=== PATIENT | male | born 1955 | race Caucasian/White ===

== ENCOUNTER 2016-08-22 14:37 | Inpatient (IN) | payer BC ==
[2016-08-22] MEDS ORDERED: DILTIAZEM 125 MG in SODIUM CHLORIDE 0.9% 100 ML IV ONE (14:53)
--- NOTE | 2016-08-22 14:56 | ED ---
General Adult HPI - General Chief complaint: Arrhythmia/Palpitations Stated complaint: Dr Sent Time Seen by Provider: 08/22/16 14:40 Source: patient, RN notes reviewed Mode of arrival: ambulatory Limitations: no limitations - History of Present Illness Initial comments: Patient is a pleasant 61-year-old male presenting to the emergency department with reported arrhythmia. Patient is symptom-free. No chest pain. No dyspnea. No palpitations. Patient states he had a physical with his occupational therapist who noticed atrial fibrillation. EKG was done with a rate of 97. No history of atrial fibrillation or previous rhythm problem. No cardiac history. Patient does admit to drinking a whole pot of coffee today. Patient does normally drink a lot of coffee. - Related Data Home Medications Medication Instructions Recorded Confirmed Aspirin EC [Ecotrin Low Dose] 81 mg PO DAILY 08/22/16 08/22/16 Atorvastatin [Lipitor] 40 mg PO DAILY 08/22/16 08/22/16 Bisoprolol-Hctz 5-6.25 mg [Ziac 1 tab PO DAILY 08/22/16 08/22/16 5-6.25] Allergies Allergy/AdvReac Type Severity Reaction Status Date / Time No Known Allergies Allergy Verified 08/22/16 15:13 Review of Systems ROS Statement: Those systems with pertinent positive or pertinent negative responses have been documented in the HPI. ROS Other: All systems not noted in ROS Statement are negative. Constitutional: Denies: fever Eyes: Denies: eye pain ENT: Denies: ear pain Respiratory: Denies: cough, dyspnea Cardiovascular: Denies: chest pain, palpitations Endocrine: Denies: fatigue Gastrointestinal: Denies: abdominal pain Genitourinary: Denies: dysuria Musculoskeletal: Denies: back pain Neurological: Denies: headache Past Medical History Past Medical History: Hyperlipidemia, Hypertension History of Any Multi-Drug Resistant Organisms: None Reported Additional Past Surgical History / Comment(s): cataract Past Psychological History: No Psychological Hx Reported Smoking Status: Never smoker Past Alcohol Use History: Occasional Past Drug Use History: None Reported General Exam Limitations: no limitations General appearance: alert, in no apparent distress Head exam: Present: atraumatic Eye exam: Present: normal appearance, PERRL ENT exam: Present: normal oropharynx Neck exam: Present: normal inspection Respiratory exam: Present: normal lung sounds bilaterally Cardiovascular Exam: Present: tachycardia, irregular rhythm GI/Abdominal exam: Present: soft. Absent: tenderness Extremities exam: Present: normal inspection. Absent: pedal edema, calf tenderness Neurological exam: Present: alert Psychiatric exam: Present: normal affect, normal mood Skin exam: Absent: rash Course Vital Signs 08/22/16 08/22/16 08/22/16 14:42 14:45 14:52 Temperature 97.1 F L Pulse Rate 108 H 105 H Pulse Rate [ 119 H Language Pathologist ] Respiratory 18 18 Rate Blood Pressure 126/78 120/86 O2 Sat by Pulse 98 97 Oximetry 08/22/16 08/22/16 14:55 15:31 Temperature Pulse Rate 126 H 93 Pulse Rate [ Language Pathologist ] Respiratory 20 18 Rate Blood Pressure 120/86 114/69 O2 Sat by Pulse 98 93 L Oximetry - Reevaluation(s) Reevaluation #1: 08/22/16 14:55 Patient is advised to discontinue or at least decrease caffeine intake EKG Findings - EKG Comments: EKG Findings:: A. fib with RVR, rate 1:15. QRS 96. QT 352. QTC 486. Normal axis. Incomplete right bundle-branch block. No acute ST change. Medical Decision Making - Medical Decision Making Patient reevaluated. Heart rate remains between 106 and 122. Case discussed in detail with Dr. Barrett, who will admit his patient. Patient updated. IV heparin started. Cardizem drip will be increased. Admission orders placed. Cardiology consult will be placed. - Lab Data Result diagrams: 08/22/16 14:52 08/22/16 14:52 Lab Results 08/22/16 08/22/16 08/22/16 Range/Units 14:52 14:52 14:52 WBC 8.9 (3.8-10.6) k/uL RBC 4.81 (4.30-5.90) m/uL Hgb 14.6 (13.0-17.5) gm/dL Hct 42.0 (39.0-53.0) % MCV 87.3 (80.0-100.0) fL MCH 30.4 (25.0-35.0) pg MCHC 34.8 (31.0-37.0) g/dL RDW 12.8 (11.5-15.5) % Plt Count 207 (150-450) k/uL Neutrophils % 58 % Lymphocytes % 32 % Monocytes % 5 % Eosinophils % 2 % Basophils % 1 % Neutrophils # 5.2 (1.3-7.7) k/uL Lymphocytes # 2.8 (1.0-4.8) k/uL Monocytes # 0.4 (0-1.0) k/uL Eosinophils # 0.2 (0-0.7) k/uL Basophils # 0.1 (0-0.2) k/uL PT (9.0-12.0) sec INR (<1.1) APTT (22.0-30.0) sec Sodium 139 (137-145) mmol/L Potassium 4.7 (3.5-5.1) mmol/L Chloride 105 (98-107) mmol/L Carbon Dioxide 22 (22-30) mmol/L Anion Gap 12 mmol/L BUN 17 (9-20) mg/dL Creatinine 1.20 (0.66-1.25) mg/dL Est GFR (MDRD) Af Amer >60 (>60 ml/min/1.73 sqM) Est GFR (MDRD) Non-Af >60 (>60 ml/min/1.73 sqM) Glucose 106 H (74-99) mg/dL Calcium 9.4 (8.4-10.2) mg/dL Magnesium 2.0 (1.6-2.3) mg/dL Total Bilirubin 1.0 (0.2-1.3) mg/dL AST 28 (17-59) U/L ALT 34 (21-72) U/L Alkaline Phosphatase 60 (38-126) U/L Total Creatine Kinase 128 (55-170) U/L CK-MB (CK-2) 1.0 (0.0-2.4) ng/mL CK-MB (CK-2) Rel Index 0.8 Troponin I <0.012 (0.000-0.034) ng/mL Total Protein 7.0 (6.3-8.2) g/dL Albumin 4.2 (3.5-5.0) g/dL TSH 1.180 (0.465-4.680) mIU/L Free T4 1.24 (0.78-2.19) ng/dL Free T3 pg/mL 4.4 (2.8-5.3) pg/ml 08/22/16 Range/Units 14:52 WBC (3.8-10.6) k/uL RBC (4.30-5.90) m/uL Hgb (13.0-17.5) gm/dL Hct (39.0-53.0) % MCV (80.0-100.0) fL MCH (25.0-35.0) pg MCHC (31.0-37.0) g/dL RDW (11.5-15.5) % Plt Count (150-450) k/uL Neutrophils % % Lymphocytes % % Monocytes % % Eosinophils % % Basophils % % Neutrophils # (1.3-7.7) k/uL Lymphocytes # (1.0-4.8) k/uL Monocytes # (0-1.0) k/uL Eosinophils # (0-0.7) k/uL Basophils # (0-0.2) k/uL PT 11.2 (9.0-12.0) sec INR 1.1 (<1.1) APTT 25.5 (22.0-30.0) sec Sodium (137-145) mmol/L Potassium (3.5-5.1) mmol/L Chloride (98-107) mmol/L Carbon Dioxide (22-30) mmol/L Anion Gap mmol/L BUN (9-20) mg/dL Creatinine (0.66-1.25) mg/dL Est GFR (MDRD) Af Amer (>60 ml/min/1.73 sqM) Est GFR (MDRD) Non-Af (>60 ml/min/1.73 sqM) Glucose (74-99) mg/dL Calcium (8.4-10.2) mg/dL Magnesium (1.6-2.3) mg/dL Total Bilirubin (0.2-1.3) mg/dL AST (17-59) U/L ALT (21-72) U/L Alkaline Phosphatase (38-126) U/L Total Creatine Kinase (55-170) U/L CK-MB (CK-2) (0.0-2.4) ng/mL CK-MB (CK-2) Rel Index Troponin I (0.000-0.034) ng/mL Total Protein (6.3-8.2) g/dL Albumin (3.5-5.0) g/dL TSH (0.465-4.680) mIU/L Free T4 (0.78-2.19) ng/dL Free T3 pg/mL (2.8-5.3) pg/ml - Radiology Data Radiology results: image reviewed (Chest x-ray shows no acute process.) Critical Care Time Critical Care Time: Yes Total Critical Care Time: 32 Disposition Clinical Impression: Atrial fibrillation with RVR Disposition: ADMITTED IP TO THIS [facility] Time of Disposition: 16:26
[2016-08-22 15:04] LABS: Basophils # (A) 0.1 k/uL (0-0.2); Basophils % (A) 1 %; CH 30.4; CHCM 34.9; Eosinophils # (A) 0.2 k/uL (0-0.7); Eosinophils % (A) 2 %; HGB 14.6 gm/dL (13.0-17.5); Luc # (Auto) 0.22; Luc % (Auto) 3; Lymphocytes # (A) 2.8 k/uL (1.0-4.8); Lymphocytes % (A) 32 %; MCH 30.4 pg (25.0-35.0); MCHC 34.8 g/dL (31.0-37.0); MCV 87.3 fL (80.0-100.0); Mean Platelet Volume 6.7; Monocytes # (A) 0.4 k/uL (0-1.0); Monocytes % (A) 5 %; Neutrophils # (A) 5.2 k/uL (1.3-7.7); Neutrophils % (A) 58 %; RBC 4.81 m/uL (4.30-5.90); RDW 12.8 % (11.5-15.5); WBC 8.9 k/uL (3.8-10.6); WBC (Perox) 8.74
[2016-08-22 15:11] LABS: INR 1.1 (<1.1); Partial Thromboplastin Time 25.5 sec (22.0-30.0); Prothrombin Time 11.2 sec (9.0-12.0)
[2016-08-22 15:13] LABS: ALT 34 U/L (21-72); AST 28 U/L (17-59); Alkaline Phosphatase 60 U/L (38-126); Anion Gap 12 mmol/L; Blood Urea Nitrogen 17 mg/dL (9-20); Calcium 9.4 mg/dL (8.4-10.2); Carbon Dioxide 22 mmol/L (22-30); Chloride 105 mmol/L (98-107); Glucose 106 mg/dL (74-99); Non-African American GFR(MDRD) >60 (>60 ml/min/1.73 sqM); Potassium 4.7 mmol/L (3.5-5.1); Sodium 139 mmol/L (137-145)
--- NOTE | 2016-08-22 15:15 | XR ---
EXAMINATION TYPE: XR chest 1V portable DATE OF EXAM: 08/22/2016 3:05 PM COMPARISON: NONE HISTORY: Abnormal EKG and dysrhythmia. TECHNIQUE: Single AP portable frontal upright view of the chest is obtained. FINDINGS: There is no focal air space opacity, pleural effusion, or pneumothorax seen. The cardiac silhouette size is within normal limits. The osseous structures are intact. IMPRESSION: No acute process.
[2016-08-22 15:25] LABS: Creatine Kinase 128 U/L (55-170)
[2016-08-22 15:37] LABS: Troponin I <0.012 ng/mL (0.000-0.034)
[2016-08-22] MEDS ORDERED: HEPARIN SODIUM,PORCINE 5,000 UNIT/ML 1 ML VIAL IV ONE (16:27)
[2016-08-22] MEDS ORDERED: HEPARIN SODIUM,PORCINE 5,000 UNIT/ML 1 ML VIAL IV PRN (16:27)
[2016-08-22] MEDS ORDERED: ASPIRIN 81 MG CHEW PO STA (16:27)
[2016-08-22] MEDS ORDERED: HEPARIN SODIUM,PORCINE/D5W PMX 25,000 UNIT in DEXTROSE/WATER 1 500ML.BAG IV SCH (16:30)
[2016-08-22 21:06] LABS: Creatine Kinase 102 U/L (55-170)
[2016-08-22 21:18] LABS: Creatine Kinase MB 0.9 ng/mL (0.0-2.4); Troponin I <0.012 ng/mL (0.000-0.034)
[2016-08-23 02:59] LABS: Creatine Kinase 81 U/L (55-170)
[2016-08-23 03:12] LABS: Creatine Kinase MB 0.7 ng/mL (0.0-2.4); Troponin I <0.012 ng/mL (0.000-0.034)
[2016-08-23] MEDS: DILTIAZEM 125 MG in SODIUM CHLORIDE 0.9% 100 ML IV SCH ×2 (06:02→08:44)
[2016-08-23 06:35] LABS: Mean Platelet Volume 6.7
[2016-08-23 06:36] LABS: Cholesterol 138 mg/dL (<200); HDL Cholesterol 34 mg/dL (40-60); Triglycerides 119 mg/dL (<150)
[2016-08-23] MEDS ORDERED: ASPIRIN 325 MG TAB PO SCH (09:00)
--- NOTE | 2016-08-23 10:46 | P.CRDCN ---
History of Present Illness Consult date: 08/23/16 Requesting physician: Danish Dubois Jr Consult reason: atrial fibrillation Chief complaint: Atrial fibrillation History of present illness: This is a 61-year-old gentleman with history of hypertension, hyperlipidemia, nicotine dependence, excessive caffeine intake, occasional EtOH use, who was at occupational therapy, while he was there was noted that the patient was in an irregular heart rhythm, for this reason he was referred to come to the emergency room for further evaluation. According to the patient, he has no history of arrhythmia in the past, he is completely asymptomatic with it. EKG on arrival here showed atrial fibrillation with a rapid ventricular response, patient was initiated on IV heparin and Cardizem in the emergency room. This morning he continues to be in atrial fibrillation with a heart rate of 70. On Cardizem drip at 10 mg per hour. Chest x-ray does not reveal any acute process. CBC normal, potassium 4.7, BUN 17, creatinine 1.2. Troponins negative 3. TSH 1.18 screen negative. Past Medical History Past Medical History: Hyperlipidemia, Hypertension Additional Past Medical History / Comment(s): 08/22/16 new onset a fib rvr History of Any Multi-Drug Resistant Organisms: None Reported Additional Past Surgical History / Comment(s): cataract Past Anesthesia/Blood Transfusion Reactions: No Reported Reaction, Blood Transfusion Reaction Past Psychological History: No Psychological Hx Reported Smoking Status: Never smoker Past Alcohol Use History: Occasional Past Drug Use History: None Reported - Past Family History Father History Unknown: Yes Mother Family Medical History: Coronary Artery Disease (CAD) Brother(s) Family Medical History: No Reported History Sister(s) Family Medical History: No Reported History Daughter(s) Family Medical History: No Reported History Son(s) Family Medical History: No Reported History Medications and Allergies Home Medications Medication Instructions Recorded Confirmed Type Aspirin EC [Ecotrin Low Dose] 81 mg PO DAILY 08/22/16 08/22/16 History Atorvastatin [Lipitor] 40 mg PO DAILY 08/22/16 08/22/16 History Bisoprolol-Hctz 5-6.25 mg [Ziac 1 tab PO DAILY 08/22/16 08/22/16 History 5-6.25] Allergies Allergy/AdvReac Type Severity Reaction Status Date / Time No Known Allergies Allergy Verified 08/22/16 21:13 Physical Exam Vitals: Vital Signs Temp Pulse Pulse Resp BP BP Pulse Ox 08/23/16 04:00 97.2 F L 75 18 104/66 95 08/23/16 00:00 96.7 F L 60 20 110/60 96 08/22/16 21:18 16 08/22/16 21:00 97.3 F L 63 18 113/71 97 08/22/16 20:43 75 16 100/59 98 08/22/16 19:47 91 20 108/59 98 08/22/16 18:24 74 16 98/72 97 Intake and Output 08/22/16 08/23/16 08/23/16 22:59 06:59 14:59 Intake Total 246.167 705.928 360 Balance 246.167 705.928 360 Intake: IV 25 240 Diltiazem 125 mg In 5 40 Sodium Chloride 0.9% 100 ml @ 10 MG/HR 10 mls/hr IV .[id number] ONE Rx#: [id number] Heparin Sodium,Porcine/ 20 200 D5w Pmx 25,000 unit In Dextrose/Water 1 500ml. bag @ 10.16 UNITS/KG/HR 20 mls/hr IV .Q24H [facility] Rx #:[id number] Intake, IV Titration 21.167 315.928 Amount Diltiazem 125 mg In 21.167 Sodium Chloride 0.9% 100 ml @ 10 MG/HR 10 mls/hr IV .[id number] ONE Rx#: [id number] Heparin Sodium,Porcine/ 315.928 D5w Pmx 25,000 unit In Dextrose/Water 1 500ml. bag @ 10.16 UNITS/KG/HR 20 mls/hr IV .Q24H [facility] Rx #:[id number] Oral 200 150 360 Other: Voiding Method Toilet Toilet # Voids 1 3 Weight 104.5 kg PHYSICAL EXAMINATION: HEENT: Head is atraumatic, normocephalic. Pupils equal, round. Neck is supple. There is no elevated jugular venous pressure. HEART EXAMINATION: Heart S1 and S2 irregularly irregular CHEST EXAMINATION: Lungs are clear to auscultation and precussion. No chest wall tenderness is noted on palpation or with deep breathing. ABDOMEN: Soft, nontender. Bowel sounds are heard. No organomegaly noted. EXTREMITIES: 2+ peripheral pulses with no evidence of peripheral edema and no calf tenderness noted. NEUROLOGIC patient is awake, alert and oriented -3. . Results 08/23/16 05:39 08/22/16 14:52 Cardiac Enzymes 08/22/16 08/23/16 Range/Units 20:30 02:05 CK-MB (CK-2) 0.9 0.7 (0.0-2.4) ng/mL Troponin I <0.012 <0.012 (0.000-0.034) ng/mL Coagulation 08/22/16 08/23/16 Range/Units 22:34 05:39 APTT 32.9 H 47.0 H (22.0-30.0) sec Lipids 08/23/16 Range/Units 05:39 Triglycerides 119 (<150) mg/dL Cholesterol 138 (<200) mg/dL HDL Cholesterol 34 L (40-60) mg/dL CBC 08/23/16 Range/Units 05:39 Plt Count 189 (150-450) k/uL Current Medications Generic Name Dose Route Start Last Admin Trade Name Freq PRN Reason Stop Dose Admin Aspirin 325 mg 08/23/16 09:00 08/23/16 08:44 Aspirin PO 325 mg DAILY TOM Administration Heparin Sodium (Porcine) 0 unit 08/22/16 16:27 08/22/16 23:28 Heparin IV 3,920 unit Q6HR PRN Administration Low PTT Protocol Heparin Sodium/Dextrose 25,000 500 mls @ 20 mls/hr 08/22/16 16:30 08/23/16 06 :30 unit/ IV Solution IV 13.16 units/kg/hr .Q24H TOM 25.9 mls/hr Protocol Titration 10.16 UNITS/KG/HR Diltiazem HCl 125 mg/ Sodium 125 mls @ 10 mls/hr 08/23/16 05:15 08/23/16 08: 44 Chloride IV 5 mg/hr .[id number] TOM 5 mls/hr 10 MG/HR Administration Intake and Output 08/22/16 08/23/16 08/23/16 22:59 06:59 14:59 Intake Total 246.167 705.928 360 Balance 246.167 705.928 360 Intake: IV 25 240 Diltiazem 125 mg In 5 40 Sodium Chloride 0.9% 100 ml @ 10 MG/HR 10 mls/hr IV .[id number] ONE Rx#: [id number] Heparin Sodium,Porcine/ 20 200 D5w Pmx 25,000 unit In Dextrose/Water 1 500ml. bag @ 10.16 UNITS/KG/HR 20 mls/hr IV .Q24H [facility] Rx #:[id number] Intake, IV Titration 21.167 315.928 Amount Diltiazem 125 mg In 21.167 Sodium Chloride 0.9% 100 ml @ 10 MG/HR 10 mls/hr IV .[id number] [facility] Rx#: [id number] Heparin Sodium,Porcine/ 315.928 D5w Pmx 25,000 unit In Dextrose/Water 1 500ml. bag @ 10.16 UNITS/KG/HR 20 mls/hr IV .Q24H [facility] Rx #:[id number] Oral 200 150 360 Other: Voiding Method Toilet Toilet # Voids 1 3 Weight 104.5 kg 08/23/16 05:39 EKG Interpretations (text) EKG shows atrial fibrillation with a rapid ventricular response. Assessment and Plan Plan: Assessment and plan #1 atrial fibrillation with rapid ventricular response, unclear of the duration. Patient is asymptomatic. Currently on IV heparin and Cardizem. H normal. #2 hypertension #3 hyperlipidemia #4 nicotine dependence # 5 excessive caffeine use #6 episodes of binge drinking Plan We will obtain an echocardiogram with Doppler study. We will also check to see if the patient has coverage for one of the newer anticoagulants. We will discontinue the IV Cardizem. We will put the patient on beta blockers. Further recommendations to follow. DNP note has been reviewed, I agree with a documented findings and plan of care. Patient was seen and examined.
[2016-08-23] MEDS: APIXABAN 5 MG TAB PO SCH ×2 (11:53→20:46)
[2016-08-23] MEDS: METOPROLOL TARTRATE 25 MG TAB PO SCH ×2 (11:53→20:46)
--- NOTE | 2016-08-23 12:07 | ECHOF ---
Referral Reason:a fib MEASUREMENTS -------- HEIGHT: 182.9 cm WEIGHT: 104.3 kg BP: 104/66 RVIDd: 3.4 cm (< 3.3) IVSd: 1.1 cm (0.6 - 1.1) LVIDd: 5.1 cm (3.9 - 5.3) LVPWd: 1.2 cm (0.6 - 1.1) IVSs: 1.5 cm LVIDs: 3.7 cm LVPWs: 1.7 cm LA Diam: 4.4 cm (2.7 - 3.8) LAESV Index (A-L): 29.64 ml/m Ao Diam: 3.3 cm (2.0 - 3.7) MV EXCURSION: 17.701 mm (> 18.000) MV EF SLOPE: 109 mm/s (70 - 150) EPSS: 1.4 cm RAP: 5.00 mmHg RVSP: 23.43 mmHg FINDINGS -------- Atrial fibrillation. This was a technically good study. The left ventricular size is normal. There is borderline concentric left ventricular hypertrophy. Overall left ventricular systolic function is severely impaired with, an EF between 25 - 30 %. The right ventricle is mildly enlarged. LA is midly dilated 29-33ml/m2. The right atrium is normal in size. Aortic valve is trileaflet and is moderately thickened. There is mild aortic regurgitation. The mitral valve leaflets are mildly thickened. Mild mitral annular calcification present. There is trace mitral regurgitation. Mild tricuspid regurgitation present. Right ventricular systolic pressure is normal at < 35 mmHg. Trace/mild (physiologic) pulmonic regurgitation. The aortic root size is normal. The inferior vena cava is mildly dilated. There is no pericardial effusion. CONCLUSIONS -------- 1. Atrial fibrillation. 2. There is mild aortic regurgitation. 3. The mitral valve leaflets are mildly thickened. 4. Mild mitral annular calcification present. 5. There is trace mitral regurgitation. 6. Mild tricuspid regurgitation present. 7. Right ventricular systolic pressure is normal at < 35 mmHg. 8. Trace/mild (physiologic) pulmonic regurgitation. 9. The aortic root size is normal. 10. The inferior vena cava is mildly dilated. 11. There is no pericardial effusion. 12. This was a technically good study. 13. The left ventricular size is normal. 14. There is borderline concentric left ventricular hypertrophy. 15. Overall left ventricular systolic function is severely impaired with, an EF between 25 - 30 %. 16. The right ventricle is mildly enlarged. 17. LA is midly dilated 29-33ml/m2. 18. The right atrium is normal in size. 19. Aortic valve is trileaflet and is moderately thickened. TEST ANALYST: Cristina Andrea RDCS
--- NOTE | 2016-08-23 12:33 | P.HPIM ---
History of Present Illness H&P Date: 08/23/16 Chief Complaint: A. fib with RVR Patient is a 61-year-old male, patient of Dr. Dubois in the outpatient setting. Medical history significant for hyperlipidemia, hypertension, and nicotine dependence. Patient states he is having a yearly physical with his EKG showing atrial fibrillation. Patient has no known history of arrhythmias and no associated symptoms. 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 In the emergency department, EKG showed atrial fibrillation with rapid ventricular response. Patient also had a chest x -ray that showed no acute cardiopulmonary process. Patient was started on IV heparin and IV Cardizem in the emergency department. Patient was admitted to the selective care unit with consult to cardiology. This morning, patient remains in atrial fibrillation with heart rate in the 70s. Patient did undergo an echocardiogram with evidence of severely impaired left ventricular systolic function with an EF between 25-30%. Patient denies recent illness, chills, fevers, nausea, vomiting, shortness of breath, chest pain, abdominal pain, leg swelling, constipation, diarrhea, urinary frequency, dysuria, or hematuria. No evidence of leukocytosis. Patient is hemodynamically stable. Past Medical History Past Medical History: Hyperlipidemia, Hypertension Additional Past Medical History / Comment(s): 08/22/16 new onset a fib rvr History of Any Multi-Drug Resistant Organisms: None Reported Additional Past Surgical History / Comment(s): cataract Past Anesthesia/Blood Transfusion Reactions: No Reported Reaction, Blood Transfusion Reaction Past Psychological History: No Psychological Hx Reported Smoking Status: Never smoker Past Alcohol Use History: Occasional Past Drug Use History: None Reported - Past Family History Father History Unknown: Yes Mother Family Medical History: Coronary Artery Disease (CAD) Brother(s) Family Medical History: No Reported History Sister(s) Family Medical History: No Reported History Daughter(s) Family Medical History: No Reported History Son(s) Family Medical History: No Reported History Medications and Allergies Home Medications Medication Instructions Recorded Confirmed Type Aspirin EC [Ecotrin Low Dose] 81 mg PO DAILY 08/22/16 08/22/16 History Atorvastatin [Lipitor] 40 mg PO DAILY 08/22/16 08/22/16 History Bisoprolol-Hctz 5-6.25 mg [Ziac 1 tab PO DAILY 08/22/16 08/22/16 History 5-6.25] Allergies Allergy/AdvReac Type Severity Reaction Status Date / Time No Known Allergies Allergy Verified 08/22/16 21:13 Physical Exam Vitals: Vital Signs Temp Pulse Pulse Pulse Resp BP BP 08/23/16 08:00 97.4 F L 78 18 109/67 08/23/16 04:00 97.2 F L 75 18 104/66 08/23/16 00:00 96.7 F L 60 20 110/60 08/22/16 21:18 16 08/22/16 21:00 97.3 F L 63 18 113/71 08/22/16 20:43 75 16 100/59 08/22/16 19:47 91 20 108/59 08/22/16 18:24 74 16 98/72 Pulse Ox 08/23/16 08:00 95 08/23/16 04:00 95 08/23/16 00:00 96 08/22/16 21:18 08/22/16 21:00 97 08/22/16 20:43 98 08/22/16 19:47 98 08/22/16 18:24 97 Intake and Output 08/22/16 08/23/16 08/23/16 22:59 06:59 14:59 Intake Total 246.167 705.928 360 Balance 246.167 705.928 360 Intake: IV 25 240 Diltiazem 125 mg In 5 40 Sodium Chloride 0.9% 100 ml @ 10 MG/HR 10 mls/hr IV .[id number] [facility] Rx#: [id number] Heparin Sodium,Porcine/ 20 200 D5w Pmx 25,000 unit In Dextrose/Water 1 500ml. bag @ 10.16 UNITS/KG/HR 20 mls/hr IV .Q24H [facility] Rx #:[id number] Intake, IV Titration 21.167 315.928 Amount Diltiazem 125 mg In 21.167 Sodium Chloride 0.9% 100 ml @ 10 MG/HR 10 mls/hr IV .[id number] [facility] Rx#: [id number] Heparin Sodium,Porcine/ 315.928 D5w Pmx 25,000 unit In Dextrose/Water 1 500ml. bag @ 10.16 UNITS/KG/HR 20 mls/hr IV .Q24H [facility] Rx #:[id number] Oral 200 150 360 Other: Voiding Method Toilet Toilet # Voids 1 3 Weight 104.5 kg GENERAL: Pt awake and alert, well-appearing, well-nourished, and in no acute distress. HEAD: Atraumatic, normocephalic. EYES: Pupils equal, round, and reactive to light, extraocular movements intact, sclera anicteric, conjunctiva are normal. ENT: Oropharynx clear without exudates. Moist mucous membranes. Tongue smooth, pink, no lesions, protrudes in midline. NECK:Normal range of motion, supple without lymphadenopathy or JVD. No carotid bruits. Thyroid midline, small and firm without palpable masses. LUNGS: Breath sounds clear to auscultation bilaterally. No wheezes, rales, or rhonchi. HEART: Heart S1, S2, no S3 or S4. Irregularly irregular. No murmurs, rubs or gallops. ABDOMEN: Soft, obese, nontender, nondistended, normoactive bowel sounds. No guarding, no rebound. No masses or organomegaly appreciated. EXTREMITIES: 2+ peripheral pulses. No edema, clubbing or cyanosis. No calf tenderness. NEUROLOGICAL: Pt oriented x 3. Cranial nerves II through XII grossly intact. Strength and sensation grossly intact. PSYCH: Normal mood, normal affect. SKIN: Warm, dry, intact. Normal turgor. No rashes or lesions. Results CBC & Chem 7: 08/23/16 05:39 08/22/16 14:52 Labs: Abnormal Lab Results - Last 24 Hours (Table) 08/22/16 08/23/16 08/23/16 Range/Units 22:34 05:39 05:39 APTT 32.9 H 47.0 H (22.0-30.0) sec HDL Cholesterol 34 L (40-60) mg/dL Chest x-ray: report reviewed Thrombosis Risk Factor Assmnt - DVT/VTE Prophylaxis DVT/VTE Prophylaxis: Pharmacologic Prophylaxis ordered - Choose All That Apply Each Factor Represents 1 point: Age 41-60 years, Obesity (BMI >25) Other Risk Factors: No Thrombosis Risk Factor Assessment Total Risk Factor Score: 2 Thrombosis Risk Factor Assessment Level: Low Risk Assessment and Plan Plan: Impression and plan: 1. Atrial fibrillation with rapid ventricular response, present on admission. Patient is currently in atrial fibrillation with controlled ventricular response. Cardiology consult in place, recommendations noted. Continue anticoagulation per cardiology recommendations. IV Cardizem will be discontinued and patient started on beta blockers per cardiology recommendations. 2. Systolic heart failure. Ventricular systolic ejection fraction 25-30%. Cardiology is following. 3. History of hyperlipidemia. Will resume Lipitor 40 mg by mouth daily. 4. Hypertension. Patient has been started on metoprolol 25 mg by mouth twice a day. 5. Nicotine dependence. Smoking cessation encouraged. Patient declines nicotine patch at this time. 6. Obesity, BMI 31.2. Will follow-up in outpatient setting. Continue to monitor patient. Continue current medications. Continue DVT prophylaxis. Continue follow cardiology service. Repeat CBC and BMP in a.m. The above impression and plan have been discussed and directed by Dr. Dubois. Kalyan MCGOWAN acting as scribe for Dr. Dubois.
[2016-08-24 06:19] LABS: Basophils % (A) 0 %; CH 30.1; CHCM 34.1; Eosinophils # (A) 0.1 k/uL (0-0.7); Eosinophils % (A) 2 %; HCT 40.4 % (39.0-53.0); HDW 2.45; Luc # (Auto) 0.12; Luc % (Auto) 2; Lymphocytes # (A) 1.9 k/uL (1.0-4.8); Lymphocytes % (A) 25 %; MCH 30.8 pg (25.0-35.0); MCHC 34.7 g/dL (31.0-37.0); MCV 88.6 fL (80.0-100.0); Mean Platelet Volume 6.7; Monocytes # (A) 0.5 k/uL (0-1.0); Monocytes % (A) 6 %; Neutrophils # (A) 4.9 k/uL (1.3-7.7); Neutrophils % (A) 65 %; RBC 4.56 m/uL (4.30-5.90); RDW 12.9 % (11.5-15.5); WBC 7.6 k/uL (3.8-10.6)
[2016-08-24 06:33] LABS: Anion Gap 8 mmol/L; Blood Urea Nitrogen 15 mg/dL (9-20); Calcium 9.5 mg/dL (8.4-10.2); Carbon Dioxide 28 mmol/L (22-30); Chloride 104 mmol/L (98-107); Glucose 115 mg/dL (74-99); Non-African American GFR(MDRD) >60 (>60 ml/min/1.73 sqM); Potassium 4.3 mmol/L (3.5-5.1); Sodium 140 mmol/L (137-145)
[2016-08-24] MEDS: METOPROLOL TARTRATE 25 MG TAB PO SCH (08:12)
[2016-08-24] MEDS: APIXABAN 5 MG TAB PO SCH (08:12)
[2016-08-24] MEDS ORDERED: ATORVASTATIN 40 MG TAB PO SCH (09:00)
--- NOTE | 2016-08-24 11:06 | P.PN ---
Subjective Principal diagnosis: New onset atrial fibrillation Patient is a 61-year-old male, patient of Dr. Dubois in the outpatient setting. Medical history significant for hyperlipidemia, hypertension, and nicotine dependence. Patient admitted with new onset atrial fibrillation with RVR. Echocardiogram with evidence of severely impaired left ventricular systolic function with an EF between 25-30%. This morning, patient remains in atrial fibrillation with heart rate in the 90s. Patient denies chills, lightheadedness, nausea, vomiting, shortness of breath, chest pain, heart palpitations, abdominal pain, leg swelling, constipation, diarrhea, urinary frequency, dysuria, or hematuria. Patient has been initiated on oral anticoagulation in the form of Eliquis and beta blockers. Cardiology is following patient. Objective - Vital Signs Vital signs: Vital Signs Temp 97.0 F L 08/24/16 08:00 Pulse 98 08/24/16 08:00 Resp 16 08/24/16 08:00 BP 131/87 08/24/16 08:00 Pulse Ox 97 08/24/16 08:00 Intake & Output 08/23/16 08/24/16 08/24/16 18:59 06:59 18:59 Intake Total 1243.2 400 250 Balance 1243.2 400 250 Weight 103.6 kg Intake: IV 163.2 10 Diltiazem 125 mg In 16 Sodium Chloride 0.9% 100 ml @ 10 MG/HR 10 mls/hr IV .[id number] ONE Rx#: [id number] Heparin Sodium,Porcine/ 64.2 D5w Pmx 25,000 unit In Dextrose/Water 1 500ml. bag @ 10.16 UNITS/KG/HR 20 mls/hr IV .Q24H [facility] Rx #:[id number] Invasive Line 1 10 Normal Saline 83 Oral 1080 400 240 Other: Voiding Method Toilet # Voids 1 - Exam GENERAL: Pt awake and alert, well-appearing, well-nourished, and in no acute distress. HEAD: Atraumatic, normocephalic. EYES: Pupils equal, round, and reactive to light, extraocular movements intact, sclera anicteric, conjunctiva are normal. ENT: Oropharynx clear without exudates. Moist mucous membranes. NECK:Normal range of motion, supple without lymphadenopathy or JVD. LUNGS: Breath sounds clear to auscultation bilaterally. No wheezes, rales, or rhonchi. HEART: Heart S1, S2, no S3 or S4. Irregularly irregular. No murmurs, rubs or gallops. ABDOMEN: Soft, obese, nontender, nondistended, normoactive bowel sounds. No guarding, no rebound. No masses or organomegaly appreciated. EXTREMITIES: 2+ peripheral pulses. No edema.. No calf tenderness. NEUROLOGICAL: Pt oriented x 3. Cranial nerves II through XII grossly intact. Strength and sensation grossly intact. PSYCH: Normal mood, normal affect. SKIN: Warm, dry, intact. Normal turgor. No rashes or lesions. - Labs CBC & Chem 7: 08/24/16 05:36 08/24/16 05:36 Labs: Abnormal Lab Results - Last 24 Hours (Table) 08/24/16 Range/Units 05:36 Glucose 115 H (74-99) mg/dL Assessment and Plan Plan: Impression and plan: 1. Atrial fibrillation with rapid ventricular response, present on admission. Patient is currently in atrial fibrillation with controlled ventricular response. Cardiology consult in place, recommendations noted. Continue oral anticoagulation per cardiology recommendations. Continue betablocker per cardiology recommendations. 2. Systolic heart failure. Ventricular systolic ejection fraction 25-30%. Cardiology is following. 3. History of hyperlipidemia. Continue Lipitor 40 mg by mouth daily. 4. Hypertension. Continue metoprolol 25 mg by mouth twice a day. 5. Nicotine dependence. Smoking cessation encouraged. Patient declines nicotine patch at this time. 6. Obesity, BMI 31.2. Will follow-up in outpatient setting. Continue to monitor patient. Continue current medications. Continue DVT prophylaxis. Continue to follow with cardiology service. We'll look for discharge recommendations from cardiology service. The above impression and plan have been discussed and directed by Dr. Dubois. Kalyan MCGOWAN acting as scribe for Dr. Dubois.
--- NOTE | 2016-08-24 14:36 | P.DS ---
Providers Date of admission: 08/22/16 16:27 Expected date of discharge: 08/24/16 Attending physician: Danish Dubois Consults: cardiology associates Primary care physician: Danish Sherly [facility] Course: Patient is a 61-year-old male, patient of Dr. Dubois in the outpatient setting. Medical history significant for hyperlipidemia, hypertension, and nicotine dependence. Patient admitted with new onset atrial fibrillation with RVR. Echocardiogram with evidence of severely impaired left ventricular systolic function with an EF between 25-30%. Patient was evaluated by cardiology who started patient on oral anticoagulation in the form Eliquis and beta blockers. Patient had no symptoms with the atrial fibrillation and tolerated the beta blockers well. Patient was discharged home in stable condition with instructions to follow-up with cardiology for possible KANNAN and cardioversion in the outpatient setting. Patient also instructed to follow-up with Dr. Dubois after discharge. Discharge diagnoses: 1. New onset atrial fibrillation with rapid ventricular response, present on admission, currently in atrial fibrillation with controlled ventricular response. 2. Systolic heart failure. Ventricular systolic ejection fraction 25-30%. 3. History of hyperlipidemia. 4. Hypertension. 5. Nicotine dependence. 6. Obesity, BMI 31.2. The above impression and plan have been discussed and directed by Dr. Dubois. Kalyan MCGOWAN acting as scribe for Dr. Dubois. Pertinent Studies: Chest x-ray; EKG; echocardiogram with Doppler Patient Condition at Discharge: Stable Plan - Discharge Summary New Discharge Prescriptions: Apixaban [Eliquis] 5 mg PO BID #60 tab Metoprolol Tartrate [Lopressor] 25 mg PO BID #60 tab Discharge Medication List Aspirin EC [Ecotrin Low Dose] 81 mg PO DAILY 08/22/16 [History] Atorvastatin [Lipitor] 40 mg PO DAILY 08/22/16 [History] Apixaban [Eliquis] 5 mg PO BID #60 tab 08/24/16 [Rx] Metoprolol Tartrate [Lopressor] 25 mg PO BID #60 tab 08/24/16 [Rx] Follow up Appointment(s)/Referral(s): Danish Dubois Jr, DO [Primary Care Provider] - 1-2 days Rebekah Hu MD [STAFF PHYSICIAN] - 2 Weeks Patient Instructions/Handouts: Atrial Fibrillation (DC) Activity/Diet/Wound Care/Special Instructions: 30 day supply of eliquis filled in OP pharmacy, free coupon applied Discharge Disposition: HOME SELF-CARE
[2016-08-24 15:20] VITALS: BP 125/90; PULSE 85; RESP 18; TEMP 96.4
--- NOTE | 2016-08-24 16:14 | P.PN ---
Subjective Principal diagnosis: Atrial fibrillation and cardiomyopathy This patient is admitted with newly detected atrial fibrillation. Heart rate is well controlled. Echo showed cardiomyopathy with ejection fraction of 25-30 %. Patient is currently stable without any chest pain, shortness of breath or dizziness. Patient is being discharged home on current medical therapy. Patient will have KANNAN and cardioversion in about 4 weeks' time. Further recommendations depend upon the clinical course. Objective - Vital Signs Vital signs: Vital Signs Temp 96.4 F L 08/24/16 12:00 Pulse 85 08/24/16 12:00 Resp 18 08/24/16 12:00 BP 125/90 08/24/16 12:00 Pulse Ox 98 08/24/16 12:00 Intake & Output 08/23/16 08/24/16 08/24/16 18:59 06:59 18:59 Intake Total 1243.2 400 490 Output Total 500 Balance 1243.2 400 -10 Weight 103.6 kg Intake: IV 163.2 10 Diltiazem 125 mg In 16 Sodium Chloride 0.9% 100 ml @ 10 MG/HR 10 mls/hr IV .[id number] [facility] Rx#: [id number] Heparin Sodium,Porcine/ 64.2 D5w Pmx 25,000 unit In Dextrose/Water 1 500ml. bag @ 10.16 UNITS/KG/HR 20 mls/hr IV .Q24H [facility] Rx #:[id number] Invasive Line 1 10 Normal Saline 83 Oral 1080 400 480 Output: Urine 500 Other: Voiding Method Toilet # Voids 1 - Labs CBC & Chem 7: 08/24/16 05:36 08/24/16 05:36 Labs: Abnormal Lab Results - Last 24 Hours (Table) 08/24/16 Range/Units 05:36 Glucose 115 H (74-99) mg/dL Assessment and Plan (1) Cardiomyopathy Status: Acute (2) Atrial fibrillation with RVR Status: Acute (3) Hypertension Status: Acute Plan: Patient will be continued on current medical therapy including beta blockers and anticoagulant agent. Follow-up in the office in 2 weeks. We'll attempt cardioversion at the time. Further recommended lipid upon the clinical course.
== END 2016-08-24 16:17 | disposition home or self-care (01) | DRG 309 ==
LOC: EC 14:37 → 6SEL 16:27
PROVIDERS: ADMIT Family Medicine; ATTEND Family Medicine
DX: I48.91 Unspecified atrial fibrillation (principal); I50.20 Unspecified systolic (congestive) heart failure; I11.0 Hypertensive heart disease with heart failure; I42.9 Cardiomyopathy, unspecified; F17.200 Nicotine dependence, unspecified, uncomplicated; I45.19 Other right bundle-branch block; E78.5 Hyperlipidemia, unspecified; E66.9 Obesity, unspecified; Z68.31 Body mass index [BMI] 31.0-31.9, adult; Z82.49 Family history of ischemic heart disease and other diseases of the circulatory system; Z79.899 Other long term (current) drug therapy; Z79.82 Long term (current) use of aspirin; Z71.6 Tobacco abuse counseling; Z98.49 Cataract extraction status, unspecified eye
CPT/HCPCS: 36415; 71010; 80048; 80053; 80061; 80306; 82550; 82553; 83735; 84439; 84443; 84481; 84484; 85025; 85049; 85610; 85730; 93005; 93306; 96365; 96366; 96368; 96376; 99291

== ENCOUNTER 2016-09-17 13:21 | Day surgery (SDC) | payer BC ==
[2016-09-14 10:49] VITALS: BMI 29.8
[~2016-09-17 13:21] MED LIST: HYDROmorphone 1 MG/ML 1 ML SYRINGE IVP PRN; LACTATED RINGERS 1,000 ML IV SCH; ONDANSETRON 4 MG/2 ML VIAL IVP ONE; SODIUM CHLORIDE 0.9% 1,000 ML IV SCH
[2016-09-17 13:55] VITALS: RESP 16; TEMP 97.7
[2016-09-17] MEDS ORDERED: PROPOFOL 10 MG/ML 20 ML VIAL IV ONE (14:01)
[2016-09-17] MEDS ORDERED: SODIUM CHLORIDE 0.9% 500 ML IV ONE (14:13)
--- NOTE | 2016-09-17 14:25 | P.PCN ---
Preoperative Diagnosis: Electrical cardioversion under anesthesia Indication: Persistent symptomatic atrial fibrillation with associated cardio myopathy Patient currently on no antiarrhythmic drug therapy Procedure: Successful electrical cardioversion for [atrial fibrillation]. 3 and 60 Joules biphasic shock was used successfully to convert the patient to sinus rhythm. Postprocedure twelve-lead ECG: Sinus mechanism normal [place] incomplete right bundle branch block QRS width 98 ms heart rate 58 beats a minute Plan: Continue long-acting metoprolol losartan and today I will add spironolactone 25 mg by mouth daily. Proceed with stress testing as planned Followup: Continue anti-coagulation Continue ELIQUIS Lexiscan Cardiolite stress test on September 26 at 10 AM Disposition: same day
[2016-09-17 16:41] VITALS: BP 121/75; PULSE 64
== END 2016-09-17 15:38 | disposition home or self-care (01) ==
LOC: CATHEP 13:21
PROVIDERS: ATTEND Internal Medicine Clinical Cardiac Electrophysiology
DX: I48.1 Persistent atrial fibrillation (principal); I42.0 Dilated cardiomyopathy; I10 Essential (primary) hypertension; E78.5 Hyperlipidemia, unspecified; Z79.82 Long term (current) use of aspirin; Z79.899 Other long term (current) drug therapy; F17.210 Nicotine dependence, cigarettes, uncomplicated
CPT/HCPCS: 93005; 92960; J2704

== ENCOUNTER → 2016-10-31 | Outpatient (CLI) | payer BC ==
[2016-10-31 17:42] LABS: CH 30.5; CHCM 34.9; HCT 41.5 % (39.0-53.0); HGB 14.3 gm/dL (13.0-17.5); MCH 30.2 pg (25.0-35.0); MCHC 34.5 g/dL (31.0-37.0); MCV 87.7 fL (80.0-100.0); RBC 4.74 m/uL (4.30-5.90); RDW 12.9 % (11.5-15.5); WBC 9.3 k/uL (3.8-10.6)
[2016-10-31 17:51] LABS: Anion Gap 10 mmol/L; Blood Urea Nitrogen 19 mg/dL (9-20); Carbon Dioxide 25 mmol/L (22-30); Chloride 103 mmol/L (98-107); Non-African American GFR(MDRD) >60 (>60 ml/min/1.73 sqM); Potassium 5.1 mmol/L (3.5-5.1); Sodium 138 mmol/L (137-145)
== END | disposition home or self-care (01) ==
LOC: LABPAT 16:37
PROVIDERS: ATTEND Internal Medicine Interventional Cardiology
DX: Z01.812 Encounter for preprocedural laboratory examination (principal); R94.30 Abnormal result of cardiovascular function study, unspecified
CPT/HCPCS: 80051; 82565; 84520; 85027

== ENCOUNTER 2016-11-02 09:21 | Day surgery (SDC) | payer BC ==
[2016-10-31 09:01] VITALS: BMI 29.5
[~2016-11-02 09:21] MED LIST changes: +ALPRAZolam 0.25 MG TAB PO PRN; +ALPRAZolam 0.5 MG TAB PO PRN; +ASPIRIN 325 MG TAB PO STA; +ATORVASTATIN 80 MG TAB PO STA; -HYDROmorphone 1 MG/ML 1 ML SYRINGE IVP PRN; -LACTATED RINGERS 1,000 ML IV SCH; +NITROGLYCERIN SL TABS 0.4 MG TAB SUBLINGUAL PRN; -ONDANSETRON 4 MG/2 ML VIAL IVP ONE; -SODIUM CHLORIDE 0.9% 1,000 ML IV SCH; +SODIUM CHLORIDE 0.9% 1,000 ML in EMPTY BAG 1 BAG IV ONE
[2016-11-02] MEDS ORDERED: LIDOCAINE 2% INJ 20 MG/ML (20 ML MDV) ONE (10:18)
[2016-11-02] MEDS ORDERED: VERAPAMIL 2.5 MG/ML 2 ML AMP ONE (10:19)
[2016-11-02] MEDS ORDERED: MIDAZOLAM 2 MG/2 ML VIAL ONE (10:33)
[2016-11-02] MEDS ORDERED: diphenhydrAMINE 50 MG/ML 1 ML VIAL ONE (10:33)
[2016-11-02] MEDS ORDERED: HEPARIN SODIUM 1,000 UNIT/ML VIAL ONE (10:34)
[2016-11-02] MEDS ORDERED: diphenhydrAMINE 50 MG/ML 1 ML VIAL IVP ONE (10:55)
[2016-11-02] MEDS: MIDAZOLAM 2 MG/2 ML VIAL IVP ONE ×2 (10:55→11:02)
[2016-11-02] MEDS ORDERED: LIDOCAINE 2% INJ 20 MG/ML SQ ONE (11:03)
[2016-11-02] MEDS: VERAPAMIL SYRINGE (5 MG/10 ML) INTRAARTER ONE ×2 (11:05→11:26)
[2016-11-02] MEDS ORDERED: HEPARIN SODIUM 1,000 UNIT/ML VIAL IV ONE (11:07)
[2016-11-02] MEDS ORDERED: IODIXANOL 320 MG/ML 100 ML IV ONE (11:23)
[2016-11-02] MEDS ORDERED: RX INFO: IV CONTRAST WAS GIVEN 1 EACH MISC MISCELLANE PRN (11:42)
[2016-11-02] MEDS ORDERED: SODIUM CHLORIDE 0.9% 1,000 ML IV SCH (11:45)
--- NOTE | 2016-11-02 12:17 | P.PCN ---
Date of Procedure: 11/02/16 Preoperative Diagnosis: Stable angina, paroxysmal atrial fibrillation, hypertension, hypercholesterolemia Postoperative Diagnosis: Left main disease with unstable angina and positive stress test Procedure(s) Performed: Implants: Anesthesia: other (Moderate moderate conscious sedation was provided with Versed and Benadryl for a total duration of 30 minutes) Indications for Procedure: Operative Findings: Description of Procedure: Left heart catheterization, coronary angiography and left ventriculography performed by Dr. RODRIGO Mccullough This is a 61-year-old gentleman with a history of hypertension hypercholesterolemia nonischemic cardiomyopathy probably precipitated by atrial fibrillation for which he had a electrical cardioversion performed about 6 weeks ago. Because of an abnormal stress test with inferior wall ischemia he was advised coronary angiography after evaluation and discussion by Dr. Westfall. I also talked to the patient at length regarding the details of the procedure risks benefits options and then proceeded to perform the procedure. Under local anesthesia and strict antiseptic precautions a 6-Lao introducer was placed in the right radial artery. Using an ultimatum on catheter I perform selective coronary angiography of the left coronary artery. Multiple angiograms were obtained. I used a JR4 catheter for right coronary artery and the pigtail catheter for LV gram. The catheter was taken out and the sheath was taken out a large TR band was applied with good hemostasis and saturation in the fingers of the right hand was about 94%. Patient tolerated the procedure well without complication. He received a moderate conscious sedation for about 30 minutes. There were no complications. Cardiac catheterization findings: The left ventricular end-diastolic pressure was 12-13 mmHg and there was no gradient across the aortic valve. Coronary angiography findings: Left main coronary artery this is a short vessel has a distal lesion of about 65 % eccentric in nature both seen on ANDERS and DUMONT projections as well as cranial and caudal projections. This is a significant lesion. It bifurcates into LAD and circumflex. Left anterior descending coronary artery: This is a relatively smaller caliber smaller distribution vessel that doesn't quite extend all the way to the apex and gives off a large diagonal branch very proximally. No significant disease is seen in the LAD system which consists of both LAD and diagonal system and the distal LAD tapers off to a small caliber towards the distal one fourth and does not quite cross the apex. The diagonal is a good caliber vessel supplies a fair amount of myocardium has noncritical disease in it. Both LAD and diagonal have minor irregularities of less than 40%. Left posterior circumflex coronary artery: This is a nondominant vessel gives off a high first obtuse marginal a small obtuse marginal and then continues as a posterior lateral branch has minor irregularities and no significant obstructive CAD is noted Right coronary artery: This is a dominant vessel has no significant disease in the proximal portion. Mid area has a smooth 40% narrowing distally bifurcates into PDA and PLV. PDA is larger PLV smaller no significant disease minor irregularities noted. Left ventriculogram: Was performed in 30 DUMONT projection revealed a left ventricle was of normal size with good systolic function and ejection fraction of 50-55% without mitral regurgitation. Final impression: This patient has a 65% distal left main disease with mild disease involving LAD circumflex and dominant RCA with normal filling pressures and preserved systolic function Recommendations: I am recommending urgent aorto coronary bypass surgery with grafts to the LAD, diagonal and circumflex marginal. Findings were discussed with the patient his and also with Drs. Jensen and Inez and who will see the patient from a CABG,MAZE and pulmonary standpoint
[2016-11-02 13:04] LABS: Appearance,Urine Clear (Clear); Bilirubin,Urine Negative (Negative); Glucose,Urine (UA) Negative (Negative); Ketones,Urine Negative (Negative); Leukocyte Esterase,Urine Negative (Negative); Nitrite,Urine Negative (Negative); Protein,Urine Negative (Negative); Specific Gravity,Urine 1.021 (1.001-1.035); UA Billing (MACRO vs. MICRO) CHEM; Urobilinogen,Urine <2.0 mg/dL (<2.0)
[2016-11-02] MEDS ORDERED: HEPARIN SODIUM,PORCINE 5,000 UNIT/ML 1 ML VIAL IV PRN (13:50)
--- NOTE | 2016-11-02 15:06 | US ---
EXAMINATION TYPE: US carotid duplex BILAT DATE OF EXAM: 11/02/2016 COMPARISON: NONE CLINICAL HISTORY: Ankle Brachial Index (CARSON) . CAD; Smoker x 40 years; HTN EXAM MEASUREMENTS: RIGHT: Peak Systolic Velocity (PSV) cm/sec ----- Right CCA: 49.2 ----- Right ICA: 385.5 PSV with recheck (PSV 460.1 and EDV 180.6) ----- Right ECA: 66.9 ICA/CCA ratio: 7.8 RIGHT: End Diastole cm/sec ----- Right CCA: 12.7 ----- Right ICA: 199.3 ----- Right ECA: 10.9 LEFT: Peak Systolic Velocity (PSV) cm/sec ----- Left CCA: 64.7 ----- Left ICA: 249.9 mid ----- Left ECA: 72.9 ICA/CCA ratio: 3.9 LEFT: End Diastole cm/sec ----- Left CCA: 18.6 ----- Left ICA: 75.3 ----- Left ECA: 8.0 VERTEBRALS (direction of flow): Right Vertebral: Antegrade Left Vertebral: Antegrade High grade stenosis is noted Right ICA proximally and less severe stenosis in Left ICA mid. Tech find ings reported to patient's E[employer] nurse, Odilia, at exam's end. JJ Atheromatous plaquing is evident. There is turbulent flow within the right internal carotid artery. M ilder turbulent flow is within the left internal carotid artery. IMPRESSION: 1. Very Severe stenosis greater than 70% within the right internal carotid artery. 2. Severe stenosis greater than 70% within the left internal carotid artery. Based on velocities and carter scale imaging this appears less stenotic than on the right. Criteria for Assigning % of Stenosis / Diameter reduction (Estimation based on the indirect measurements of the internal carotid artery velocities (ICA PSV). 1. Normal (no stenosis)=ICA PSV < 125 cm/s: ratio < 2.0: ICA EDV<40 cm/s. 2. Less than 50% stenosis=ICA PSV < 125 cm/s: ratio < 2.0: ICA EDV<40 cm/s. 3. 50 to 69% stenosis=ICA PSV of 125 to 230 cm/s: ration 2.0 ? 4.0: ICA EDV 40-100 cm/s. 4. Greater than 70% stenosis to near occlusion= ICA PSV > 230 cm/s: ratio > 4.0: ICA EDV > 100 cm/s. 5. Near occlusion= ICA PSV velocities may be low or undetectable: variable ratio and ICA EDV. 6. Total occlusion=unable to detect flow.
[2016-11-02 15:24] LABS: Basophils % (A) 1 %; CH 30.7; CHCM 35.4; Eosinophils # (A) 0.2 k/uL (0-0.7); Eosinophils % (A) 3 %; HCT 37.7 % (39.0-53.0); HDW 2.46; HGB 13.4 gm/dL (13.0-17.5); Luc # (Auto) 0.17; Luc % (Auto) 3; Lymphocytes # (A) 2.4 k/uL (1.0-4.8); Lymphocytes % (A) 35 %; MCH 30.9 pg (25.0-35.0); MCHC 35.6 g/dL (31.0-37.0); MCV 86.9 fL (80.0-100.0); Mean Platelet Volume 7.2; Monocytes # (A) 0.4 k/uL (0-1.0); Monocytes % (A) 6 %; Neutrophils # (A) 3.6 k/uL (1.3-7.7); Neutrophils % (A) 53 %; RBC 4.34 m/uL (4.30-5.90); RDW 12.9 % (11.5-15.5); WBC 6.7 k/uL (3.8-10.6)
[2016-11-02 15:28] LABS: INR 1.1 (<1.1); Partial Thromboplastin Time 34.1 sec (22.0-30.0); Prothrombin Time 10.9 sec (9.0-12.0)
[2016-11-02 15:37] LABS: ALT 50 U/L (21-72); AST 21 U/L (17-59); Alkaline Phosphatase 76 U/L (38-126); Anion Gap 10 mmol/L; Blood Urea Nitrogen 19 mg/dL (9-20); Calcium 9.3 mg/dL (8.4-10.2); Carbon Dioxide 23 mmol/L (22-30); Chloride 105 mmol/L (98-107); Cholesterol 144 mg/dL (<200); Glucose 109 mg/dL (74-99); HDL Cholesterol 33 mg/dL (40-60); Non-African American GFR(MDRD) >60 (>60 ml/min/1.73 sqM); Potassium 4.3 mmol/L (3.5-5.1); Sodium 138 mmol/L (137-145); Total Bilirubin 0.9 mg/dL (0.2-1.3); Total Protein 6.7 g/dL (6.3-8.2); Triglycerides 187 mg/dL (<150)
[2016-11-02 16:06] LABS: Hepatitis B Surface Ag Index 0.05
[2016-11-02 16:11] LABS: Hepatitis B Core IgM Index 0.03
--- NOTE | 2016-11-02 16:19 | XR ---
EXAMINATION TYPE: XR chest 2V DATE OF EXAM: 11/02/2016 COMPARISON: 08/22/2016 INDICATION: Preoperative cardiac surgery TECHNIQUE: Frontal and lateral views of the chest are obtained. FINDINGS: The heart size is normal. The pulmonary vasculature is normal. The lungs are clear. IMPRESSION: 1. No acute pulmonary process.
[2016-11-02 16:23] LABS: Hepatitis C Virus IgG Ab Negative (Negative); Hepatitis C Virus IgG Index 0.02
[2016-11-02] MEDS: HEPARIN SODIUM,PORCINE/D5W PMX 25,000 UNIT in DEXTROSE/WATER 1 500ML.BAG IV SCH ×2 (17:42→23:28)
--- NOTE | 2016-11-02 19:23 | P.CNPUL ---
History of Present Illness Consult date: 11/02/16 Chief complaint: preop pulmonary evaluation, CABG evaluation History of present illness: This is a 61-year-old gentleman with a history of hypertension hypercholesterolemia cardiomyopathy with a previous ejection fraction of 25% probably precipitated by atrial fibrillation for which he had a electrical cardioversion performed about 6 weeks ago. Because of an abnormal stress test with inferior wall ischemia he was advised coronary angiography. The catheterization was done this morning and the patient was found to has a 65% distal left main disease with mild disease involving LAD circumflex and dominant RCA with normal filling pressures and preserved systolic function. Based on the results, the patient be having a cardiac bypass evaluation by Dr. Javan Jensen. I was asked to the pulmonary evaluation of this patient preoperatively. This patient is a chronic smoker. He is never been diagnosed having any form of obstructive lung disease, COPD or asthma although COPD is a constellation based on his chronic smoking history. Currently smoking one half pack of cigarettes a day. Does not utilize any form of respiratory medications or inhalers. He claims to be able to climb a flight of stairs without any major difficulties. He has no wheezing. No chest pain. No pleurisy. No recurrent bouts of pneumonias. He has some features of obstructive sleep apnea and clinically this is suspected however this has not been officially confirmed. A bedside spirometry is to follow. Carotid Dopplers is to follow. Review of Systems A 12 point review of system was done and the positive findings are almost above in history of present illness Past Medical History Past Medical History: Atrial Fibrillation, Coronary Artery Disease (CAD), Heart Failure, Hyperlipidemia, Hypertension, Skin Disorder Additional Past Medical History / Comment(s): precancerous skin lesions History of Any Multi-Drug Resistant Organisms: None Reported Additional Past Surgical History / Comment(s): ramón cataracts, recent cardioversion-May Past Anesthesia/Blood Transfusion Reactions: No Reported Reaction Past Psychological History: No Psychological Hx Reported Smoking Status: Current every day smoker - Past Family History Father History Unknown: Yes Family Medical History: Cancer Mother Family Medical History: Coronary Artery Disease (CAD) Brother(s) Family Medical History: No Reported History Sister(s) Family Medical History: No Reported History Daughter(s) Family Medical History: No Reported History Son(s) Family Medical History: No Reported History Medications and Allergies Home Medications Medication Instructions Recorded Confirmed Type Aspirin EC [Ecotrin Low Dose] 81 mg PO DAILY 08/22/16 11/02/16 History Atorvastatin [Lipitor] 40 mg PO DAILY 08/22/16 11/02/16 History Losartan Potassium [Cozaar] 25 mg PO HS 09/14/16 11/02/16 History Metoprolol Succinate [Toprol XL] 50 mg PO DAILY 09/14/16 11/02/16 History Multivitamins, Thera [Multivitamin 1 tab PO DAILY 09/14/16 11/02/16 History (formulary)] Allergies Allergy/AdvReac Type Severity Reaction Status Date / Time No Known Allergies Allergy Verified 10/31/16 08:27 Physical Exam Vitals: Vital Signs Temp Pulse Pulse Resp BP BP Pulse Ox 11/02/16 15:28 96.9 F L 50 L 16 133/78 97 11/02/16 13:28 48 L 16 130/74 11/02/16 12:57 50 L 16 164/81 11/02/16 12:28 56 L 18 139/79 95 11/02/16 12:13 55 L 16 149/84 97 11/02/16 11:57 53 L 16 148/72 97 11/02/16 11:45 53 L 16 144/74 96 11/02/16 09:36 97.6 F 60 18 143/80 144/84 97 Intake and Output 11/02/16 11/02/16 11/02/16 06:59 14:59 22:59 Intake Total 350 350 Output Total 550 Balance -200 350 Intake: IV 350 Intake, IV Titration 150 Amount Sodium Chloride 0.9% 1, 150 000 ml @ 75 mls/hr IV . [id number] [facility] Rx#:[id number] Oral 200 Output: Urine 550 Other: # Voids 1 Weight 98.883 kg Patient Weight 11/03/16 06:59 Weight 98.883 kg The patient appeared well nourished and normally developed. Vital signs as documented. Head exam is unremarkable. No scleral icterus or corneal arcus noted. Neck is without jugular venous distension, thyromegaly, or carotid bruits. Carotid upstrokes are brisk bilaterally. Lungs are clear to auscultation and percussion. Cardiac exam reveals the PMI to be normally sized and situated. Rhythm is regular. First and second heart sounds normal. No murmurs, rubs or gallops. Abdominal exam reveals normal bowel sounds, no masses , no organomegaly and no aortic enlargement. Extremities are nonedematous and both femoral and pedal pulses are normal. Results - Laboratory Findings CBC and BMP: 11/02/16 15:05 11/02/16 15:05 PT/INR, D-dimer PT 10.9 sec (9.0-12.0) 11/02/16 15:05 INR 1.1 (<1.1) 11/02/16 15:05 Abnormal lab findings: Abnormal Labs 11/02/16 11/02/16 11/02/16 15:05 15:05 15:05 Hct 37.7 L APTT 34.1 H Glucose 109 H Triglycerides 187 H HDL Cholesterol 33 L - Diagnostic Findings Chest x-ray: image reviewed Assessment and Plan Plan: Assessment 1 symptomatic coronary artery disease awaiting cardiac bypass evaluation by cardiothoracic surgery. Overall pulmonary status is stable. There is a concern for an underlying COPD based on the patient's smoking history. A bedside spirometry will be done. The patient be given incentive spirometer. 2 Cardiomyopathy with impaired ejection fraction of around 25% 3 atrial fibrillation status post cardioversion 4 hypertension 5 hyperlipidemia 6 smoker 7 clinical suspicion for obstructive sleep apnea along with some obesity. Plan Obtain a bedside spirometry. Carotid Dopplers. Smoking cessation counseling was done. Provide the patient an incentive spirometer. Awaiting cardiac surgery evaluation regarding possible cardiac event scoliosis surgery over the next few days. We'll continue to follow.
[2016-11-02 19:34] LABS: Hemoglobin A1C 6.7 % (4.2-6.1)
[2016-11-02] MEDS ORDERED: LOSARTAN 25 MG TAB PO SCH (21:00)
[2016-11-03] MEDS ORDERED: ATORVASTATIN 40 MG TAB PO SCH (09:00)
[2016-11-03] MEDS ORDERED: SPIRONOLACTONE 25 MG TAB PO SCH (09:00)
[2016-11-03] MEDS ORDERED: ASPIRIN 81 MG CHEW PO SCH (09:00)
[2016-11-03] MEDS ORDERED: METOPROLOL SUCCINATE (ER) 50 MG TAB.ER.24H PO SCH (09:00)
[2016-11-03] MEDS ORDERED: MULTIVITAMINS, THERA 1 EACH TAB PO SCH (12:00)
--- NOTE | 2016-11-03 12:39 | P.PN ---
Subjective This is a 61-year-old gentleman with a history of hypertension hypercholesterolemia cardiomyopathy with a previous ejection fraction of 25% probably precipitated by atrial fibrillation for which he had a electrical cardioversion performed about 6 weeks ago. Because of an abnormal stress test with inferior wall ischemia he was advised coronary angiography. The catheterization was done this morning and the patient was found to has a 65% distal left main disease with mild disease involving LAD circumflex and dominant RCA with normal filling pressures and preserved systolic function. Based on the results, the patient be having a cardiac bypass evaluation by Dr. Javan Jensen. I was asked to the pulmonary evaluation of this patient preoperatively. This patient is a chronic smoker. He is never been diagnosed having any form of obstructive lung disease, COPD or asthma although COPD is a constellation based on his chronic smoking history. Currently smoking one half pack of cigarettes a day. Does not utilize any form of respiratory medications or inhalers. He claims to be able to climb a flight of stairs without any major difficulties. He has no wheezing. No chest pain. No pleurisy. No recurrent bouts of pneumonias. He has some features of obstructive sleep apnea and clinically this is suspected however this has not been officially confirmed. A bedside spirometry is to follow. Carotid Dopplers is to follow. On 11/03/2016 the patient has no specific complaints. The patient had a bedside spirometry the FEV1 is noted of 65% predicted consistent with moderate to severe COPD. Using incentive spirometer. Awaiting a cardiothoracic surgery evaluation. Objective - Vital Signs Vital signs: Vital Signs Temp 97.1 F L 11/03/16 08:00 Pulse 52 L 11/03/16 08:00 Resp 18 11/03/16 08:00 BP 139/66 11/03/16 08:00 Pulse Ox 96 11/03/16 08:00 Intake & Output 11/02/16 11/03/16 11/03/16 18:59 06:59 18:59 Intake Total 940 900 480 Output Total 550 Balance 390 900 480 Weight 98.883 kg 102.5 kg Intake: IV 350 Intake, IV Titration 150 900 Amount Sodium Chloride 0.9% 1, 150 900 000 ml @ 75 mls/hr IV . [id number] [facility] Rx#:[id number] Oral 440 480 Output: Urine 550 Other: Voiding Method Toilet # Voids 1 2 - Exam The patient appeared well nourished and normally developed. Vital signs as documented. Head exam is unremarkable. No scleral icterus or corneal arcus noted. Neck is without jugular venous distension, thyromegaly, or carotid bruits. Carotid upstrokes are brisk bilaterally. Lungs are clear to auscultation and percussion. Cardiac exam reveals the PMI to be normally sized and situated. Rhythm is regular. First and second heart sounds normal. No murmurs, rubs or gallops. Abdominal exam reveals normal bowel sounds, no masses , no organomegaly and no aortic enlargement. Extremities are nonedematous and both femoral and pedal pulses are normal. - Labs CBC & Chem 7: 11/02/16 15:05 11/02/16 15:05 Labs: Abnormal Lab Results - Last 24 Hours (Table) 11/02/16 11/02/16 11/02/16 Range/Units 15:05 15:05 15:05 Hct 37.7 L (39.0-53.0) % APTT 34.1 H (22.0-30.0) sec Glucose 109 H (74-99) mg/dL Hemoglobin A1c (4.2-6.1) % Triglycerides 187 H (<150) mg/dL HDL Cholesterol 33 L (40-60) mg/dL 11/02/16 11/02/16 11/03/16 Range/Units 15:05 22:34 05:53 Hct (39.0-53.0) % APTT 41.1 H 129.4 H* (22.0-30.0) sec Glucose (74-99) mg/dL Hemoglobin A1c 6.7 H (4.2-6.1) % Triglycerides (<150) mg/dL HDL Cholesterol (40-60) mg/dL Microbiology - Last 24 Hours (Table) 11/02/16 12:45 Urine Culture - Preliminary Urine,Voided 11/02/16 12:45 Nasal Screen MRSA/MSSA ([facility]) - Preliminary Nasopharyngeal Swab Assessment and Plan Plan: Assessment 1 symptomatic coronary artery disease awaiting cardiac bypass evaluation by cardiothoracic surgery. Overall pulmonary status is stable. There is a concern for an underlying COPD based on the patient's smoking history. A bedside spirometry will be done. The patient be given incentive spirometer. 2 Cardiomyopathy with impaired ejection fraction of around 25% 3 atrial fibrillation status post cardioversion 4 hypertension 5 hyperlipidemia 6 COPD with a baseline FEV1 of 65% of predicted 7 clinical suspicion for obstructive sleep apnea along with some obesity. 8 smoker 9 abnormal carotid Dopplers with significant stenosis Plan Awaiting CT surgery evaluation. Pulmonary status stable for now. Continues incentive spirometer.
[2016-11-03 12:46] VITALS: BP 120/64; PULSE 59; RESP 16; TEMP 96.3
--- NOTE | 2016-11-03 13:41 | P.PN ---
Subjective Principal diagnosis: Left Main disease with unstable angina and positive stress test This is a pleasant 61-year-old gentleman with a history of hypertension, hypercholesterolemia, nonischemic cardiomyopathy, atrial fibrillation. Was brought to the Cardiology Nurse to undergo heart coronary angiography because of an abnormal stress test with inferior wall ischemia. Coronary artery found left main with a distal lesion of about 65% as well as significant disease in the LAD , diagonal and circumflex. Patient is awaiting consultation with CV surgery to plan for coronary artery bypass grafting. Patient is feeling well, currently denies complaints of chest discomfort, shortness of breath, palpitations or dizziness. Objective - Vital Signs Vital signs: Vital Signs Temp 96.3 F L 11/03/16 12:00 Pulse 59 L 11/03/16 12:00 Resp 16 11/03/16 12:00 BP 120/64 11/03/16 12:00 Pulse Ox 95 11/03/16 12:00 Intake & Output 11/02/16 11/03/16 11/03/16 18:59 06:59 18:59 Intake Total 940 900 720 Output Total 550 Balance 390 900 720 Weight 98.883 kg 102.5 kg Intake: IV 350 Intake, IV Titration 150 900 Amount Sodium Chloride 0.9% 1, 150 900 000 ml @ 75 mls/hr IV . [id number] [facility] Rx#:[id number] Oral 440 720 Output: Urine 550 Other: Voiding Method Toilet # Voids 1 2 - Exam PHYSICAL EXAMINATION: HEENT: Head is atraumatic, normocephalic. Pupils equal, round. Neck is supple. There is no elevated jugular venous pressure. HEART EXAMINATION: Heart sounds regular, S1 and S2 normal. No murmur or gallop heard. CHEST EXAMINATION: Lungs are clear to auscultation and precussion. No chest wall tenderness is noted on palpation or with deep breathing. ABDOMEN: Soft, nontender. Bowel sounds are heard. No organomegaly noted. EXTREMITIES: 2+ peripheral pulses with no evidence of peripheral edema and no calf tenderness noted. Right radial puncture site soft without ecchymosis or hematoma. NEUROLOGIC patient is awake, alert and oriented x3. . - Labs CBC & Chem 7: 11/02/16 15:05 11/02/16 15:05 Labs: Abnormal Lab Results - Last 24 Hours (Table) 11/02/16 11/02/16 11/02/16 Range/Units 15:05 15:05 15:05 Hct 37.7 L (39.0-53.0) % APTT 34.1 H (22.0-30.0) sec Glucose 109 H (74-99) mg/dL Hemoglobin A1c (4.2-6.1) % Triglycerides 187 H (<150) mg/dL HDL Cholesterol 33 L (40-60) mg/dL 11/02/16 11/02/16 11/03/16 Range/Units 15:05 22:34 05:53 Hct (39.0-53.0) % APTT 41.1 H 129.4 H* (22.0-30.0) sec Glucose (74-99) mg/dL Hemoglobin A1c 6.7 H (4.2-6.1) % Triglycerides (<150) mg/dL HDL Cholesterol (40-60) mg/dL Microbiology - Last 24 Hours (Table) 11/02/16 12:45 Urine Culture - Preliminary Urine,Voided 11/02/16 12:45 Nasal Screen MRSA/MSSA ([facility]) - Preliminary Nasopharyngeal Swab Assessment and Plan Plan: Assessment and plan #1 coronary artery disease, awaiting consultation with Dr. Jensen. #2 hypertension #3 hyperlipidemia #4 prior paroxysmal atrial fibrillation, status post cardioversion #5 cardiomyopathy From cardiology's perspective, medications were reviewed will continue the same at this time. From our standpoint patient may be discharged home and return for CABG as scheduled by Dr. Jensen. 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 Patient was seen and examined.
--- NOTE | 2016-11-03 14:28 | P.DS ---
Providers Date of admission: 11/02/2016 Date of discharge 11/03/2016 This patient was brought in electively for cardiac catheterization that was performed by me yesterday from right radial approach. He has history of hypertension hypercholesterolemia and a cardiomyopathy related to atrial fibrillation. However he had cardioversion more than 6 weeks ago and his LV function has almost normalized. Cardiac catheterization revealed a left main stenosis of 65% with noncritical disease in other vessels. I advised aortocoronary bypass surgery with grafts to LAD diagonal and circumflex marginal. Patient has a moderate to severe right carotid stenosis based on ultrasound. However he does not have symptoms in this regard. He will have I recommended bypass surgery on November 17. Patient was seen by Dr. Javan Jensen. Patient insists and is adamant that he wants to go to [place] to watch the [employer] game on November 06. I advised him to use discretion avoid any strenuous activity and to continue his medications and I also provided him with a nitroglycerin prescription on a when necessary basis physical exam revealed blood pressure 128 /70 pulse rate of about 62/m sinus there is no JVD or carotid bruit of significance. S1 and S2 are heard normally with a short systolic murmur at left sternal border and lungs were clear abdomen and lower extremity exam was unremarkable. Right radial cath site is clean and dry with a good pulse patient will not take liquids since he is going to have surgery on the fifth 4 days from now. Advised today Kassman 81 mg daily beta blockers statins and all his other medications which were reviewed with him. Patient will come in for aortocoronary bypass surgery on November 07 and will then follow-up with Dr. Westfall his baker second and his primary care physician he was asymptomatic stable and ambulated the time of discharge. All instructions regarding activity diet and medications were given to patient and . Attending physician: Yessi Mccullough Consults: 11/02/16 11:50 Consult Physician Urgent Consulting Provider: Javan Jensen Consult Reason/Comments: CABG and MAZE, LM disease and Paroxysmal AFIB S/P ECV Do you want consulting provider notified?: Yes 11/02/16 11:51 Consult Physician Urgent Consulting Provider: Pratibha Wiley Consult Reason/Comments: Pul Eval in Smoker, pre CABG for LM disease Do you want consulting provider notified?: Already Contacted Primary care physician: Danish Dubois Plan - Discharge Summary New Discharge Prescriptions: New Nitroglycerin Sl Tabs [Nitrostat] 0.4 mg SUBLINGUAL Q5M PRN #25 tab PRN Reason: Chest Pain Continue Atorvastatin [Lipitor] 40 mg PO DAILY Aspirin EC [Ecotrin Low Dose] 81 mg PO DAILY Metoprolol Succinate [Toprol XL] 50 mg PO DAILY Losartan Potassium [Cozaar] 25 mg PO HS Multivitamins, Thera [Multivitamin (formulary)] 1 tab PO DAILY Spironolactone [Aldactone] 25 mg PO DAILY #1 tablet Discontinued Apixaban [Eliquis] 5 mg PO BID #60 tab Discharge Medication List Aspirin EC [Ecotrin Low Dose] 81 mg PO DAILY 08/22/16 [History] Atorvastatin [Lipitor] 40 mg PO DAILY 08/22/16 [History] Losartan Potassium [Cozaar] 25 mg PO HS 09/14/16 [History] Metoprolol Succinate [Toprol XL] 50 mg PO DAILY 09/14/16 [History] Multivitamins, Thera [Multivitamin (formulary)] 1 tab PO DAILY 09/14/16 [History ] Spironolactone [Aldactone] 25 mg PO DAILY #1 tablet 09/17/16 [Rx] Nitroglycerin Sl Tabs [Nitrostat] 0.4 mg SUBLINGUAL Q5M PRN #25 tab 11/03/16 [Rx ]
--- NOTE | 2016-11-07 10:04 | P.VSCSTY ---
Greater Saphenous Vein Mapping This is bilateral lower extremity greater saphenous vein mapping. Date of service 11/02/2016 Vein quality and ultrasound appearance normal. Vein size groin right 6.4 x 9.9 groin left 6.4 x 4.9 High thigh right 5.4 x 4.8 high thigh left 5.1 x 3.8 Mid thigh right 4.7 x 3.6 mid thigh left 5.1 x 4.1 Above-knee right 4.4 x 3.6 above- knee left 3.5 x 3.5 Below knee right 4.7 x 3.8 below-knee left 2.9 x 2.7 Mid calf right 2.4 x 2.6 mid calf left 3.0 x 2.3 Ankle right 3.2 x 3.2 ankle left 3.2 x 3.0 Impression usable bilateral greater saphenous vein.
== END 2016-11-03 16:45 | disposition home or self-care (01) ==
LOC: CATHCVL 09:21 → 6SEL 11:24 → CATHCVL 11-03 16:45
PROVIDERS: ATTEND Internal Medicine Interventional Cardiology
DX: I25.110 Atherosclerotic heart disease of native coronary artery with unstable angina pectoris (principal); I11.0 Hypertensive heart disease with heart failure; I50.9 Heart failure, unspecified; F17.210 Nicotine dependence, cigarettes, uncomplicated; I42.0 Dilated cardiomyopathy; I65.23 Occlusion and stenosis of bilateral carotid arteries; Z01.810 Encounter for preprocedural cardiovascular examination; I48.0 Paroxysmal atrial fibrillation; Z79.01 Long term (current) use of anticoagulants; E78.5 Hyperlipidemia, unspecified; E78.00 Pure hypercholesterolemia, unspecified; Z79.82 Long term (current) use of aspirin; Z79.899 Other long term (current) drug therapy
CPT/HCPCS: 94150; 93458; 83880; 80061; 80053; 80074; 84443; 83036; 83735; 85025; 85610; 85730 ×2; 81003; 87070; 87086; 71020; 93970; 93880; 99152; 99153; C1769; C1894; J2001; J2250; J1200; Q9967; J1644 ×2

== ENCOUNTER 2016-11-08 07:24 | Inpatient (IN) | payer BC ==
[2016-11-07 10:02] VITALS: BMI 29.5
[~2016-11-08 07:24] MED LIST changes: +ALBUMIN HUMAN 25% 50 ML IV ONE; +ALBUMIN HUMAN 5% 500 ML IVPB ONE; -ALPRAZolam 0.25 MG TAB PO PRN; -ALPRAZolam 0.5 MG TAB PO PRN; +ASPIRIN 325 MG TAB PO ONE; -ASPIRIN 325 MG TAB PO STA; +ATORVASTATIN 10 MG TAB PO ONE; -ATORVASTATIN 80 MG TAB PO STA; +CALCIUM CHLORIDE 100 MG/ML 10 ML SYRINGE IV ONE; +CHLORHEXIDINE GLUCONATE 15 ML CUP MUCOUS MEM ONE; +CLEVIDIPINE BUTYRATE 25 MG in EMPTY BAG 1 BAG IV ONE; +HEPARIN SODIUM 1,000 UN/ML (10ML VL) IV ONE; +HEPARIN SODIUM,PORCINE 5,000 UNIT in SODIUM CHLORIDE 0.9% 500 ML IV ONE; +INSULIN REGULAR 100 UNIT in SODIUM CHLORIDE 0.9% 100 ML IV ONE; +LACTATED RINGERS 1,000 ML IV ONE; +LACTATED RINGERS 1,000 ML IV SCH; +MAGNESIUM SULFATE MG 500 MG/ML VIAL IV ONE; +METOPROLOL TARTRATE 12.5 MG TAB PO ONE; -NITROGLYCERIN SL TABS 0.4 MG TAB SUBLINGUAL PRN; +NITROGLYCERIN-D5W PMX 25 MG/250 ML BTL IV ONE; +NITROGLYCERIN-D5W PMX 50 MG in DEXTROSE/WATER 1 250ML.BAG IV ONE; +NOREPINEPHRIN 4 MG-0.9% NS PMX 4 MG/250 ML ML IV ONE; +PAPAVERINE 360 MG in SODIUM CHLORIDE 0.9% 90 ML IV ONE; +PHENYLEPHRINE 40 MG in SODIUM CHLORIDE 0.9% 250 ML IV ONE; +PHENYLEPHRINE-0.9% NACL SYG 1 MG/10 ML SYRINGE IV ONE; +PROPOFOL 50 ML IV ONE; +PROTAMINE SULFATE 10 MG/ML 25 ML VIAL IV ONE; +PROTAMINE SULFATE 250 MG in EMPTY BAG 1 BAG IV ONE; +SODIUM BICARB 8.4% 50 ML SYR (1 MEQ/ML) IV ONE; +SODIUM CHLORIDE 0.9% 1,000 ML IV ONE; -SODIUM CHLORIDE 0.9% 1,000 ML in EMPTY BAG 1 BAG IV ONE; +ceFAZolin 1,000 MG in SODIUM CHLORIDE 0.9% IRRIGATIO 1,000 ML IRRIGATION ONE; +ceFAZolin 2,000 MG in SODIUM CHLORIDE 0.9% 30 ML IVPB ONE
--- NOTE | 2016-11-08 08:51 | P.GSCN ---
History of Present Illness Consult date: 11/03/16 Reason for Consult: Coronary artery disease with left main disease, recommendations for surgical revasculartization. Requesting physician: Yessi Mccullough History of present illness: This 61 year old male has been following with Dr. Westfall for paroxysmal atrial fibrillation with resulting nonischemic cardiomyopathy. He was successfully cardioverted approximately 6 weeks ago. Subsequently, he underwent a stress test which was abnormal and he was recommended to have a heart catheterization. The catheterization was performed on 11/02/16 and demonstrated 65% distal left main disease with mild disease involving the LAD, circumflex and RCA. He was referred to Dr. Jensen from cardiothoracic surgery for surgical revascularization. Review of Systems 14 point review of systems was completed and was negative except as noted. - Cardiovascular Reports as per HPI - Respiratory Reports as per HPI Past Medical History Past Medical History: Atrial Fibrillation, Coronary Artery Disease (CAD), Heart Failure, Hyperlipidemia, Hypertension, Skin Disorder Additional Past Medical History / Comment(s): precancerous skin lesions History of Any Multi-Drug Resistant Organisms: None Reported Past Surgical History: Heart Catheterization Additional Past Surgical History / Comment(s): ramón cataracts, recent cardioversion-September Past Anesthesia/Blood Transfusion Reactions: No Reported Reaction Past Psychological History: No Psychological Hx Reported Smoking Status: Current every day smoker Past Alcohol Use History: Occasional Additional Past Alcohol Use History / Comment(s): down 5 cigs/day, smoker on & off for 40 yrs. Past Drug Use History: None Reported - Past Family History Father History Unknown: Yes Family Medical History: Cancer Mother Family Medical History: Coronary Artery Disease (CAD) Brother(s) Family Medical History: No Reported History Sister(s) Family Medical History: No Reported History Daughter(s) Family Medical History: No Reported History Son(s) Family Medical History: No Reported History Medications and Allergies Home Medications Medication Instructions Recorded Confirmed Type Aspirin EC [Ecotrin Low Dose] 81 mg PO DAILY 08/22/16 11/08/16 History Atorvastatin [Lipitor] 40 mg PO DAILY 08/22/16 11/08/16 History Losartan Potassium [Cozaar] 25 mg PO HS 09/14/16 11/08/16 History Metoprolol Succinate [Toprol XL] 50 mg PO DAILY 09/14/16 11/08/16 History Multivitamins, Thera [Multivitamin 1 tab PO DAILY 09/14/16 11/08/16 History (formulary)] Nicotine 21Mg/24Hr Patch [Habitrol 1 each TRANSDERM DAILY 11/07/16 11/08/16 History 21Mg/24Hr Patch] Allergies Allergy/AdvReac Type Severity Reaction Status Date / Time No Known Allergies Allergy Verified 11/08/16 07:42 Surgical - Exam Vital Signs Temp Pulse Resp BP Pulse Ox 97.5 F L 61 16 126/59 97 11/08/16 07:45 11/08/16 07:45 11/08/16 07:45 11/08/16 07:45 11/08/16 07:45 - General well developed, well nourished, no distress, no pain - Eyes PERRL, normal ocular movement - ENT no hearing loss - Neck trachea midline - Respiratory normal expansion, normal respiratory effort, clear to auscultation - Cardiovascular Rhythm: regular Heart Sounds: normal: S1, S2 - Abdomen Abdomen: soft, non tender, bowel sounds - Genitourinary deferred - Rectum deferred - Integumentary no rash, no growths - Neurologic normal coordination, normal sensation - Musculoskeletal normal gait, normal posture - Psychiatric oriented to time, oriented to person, oriented to place, speech is normal, memory intact Results - Labs Abnormal Lab Results - Last 24 Hours (Table) 11/07/16 Range/Units 14:16 Crossmatch See Detail - Imaging Chest x-ray: image reviewed Additional studies: PFT, carotid ultrasound, vein mapping reviewed Assessment and Plan (1) History of atrial fibrillation Status: Acute (2) History of cardioversion Status: Acute (3) Hyperlipidemia Status: Acute (4) Tobacco abuse, in remission Status: Acute (5) Nonischemic cardiomyopathy Status: Acute (6) Obesity (BMI 30.0-34.9) Status: Acute (7) Hypertension Status: Acute Plan: The patient was seen and examined. Chart/diagnostics were reviewed. Dr. Jensen recommended surgical coronary artery revascularization. All risks and benefits were explained in detail with the patient and he agreed to proceed with surgery. The plan is for coronary artery bypass grafting surgery on 11/08/2016 with further recommendations to follow. Thank you Dr. Mccullough for this consult. We look forward to working with you in the care of your patient. Time with Patient: Greater than 30
[2016-11-08 09:01] LABS: Glucose,Whole Blood 147 mg/dL (75-99)
[2016-11-08] MEDS ORDERED: ePHEDrine 50 MG/ML 1 ML AMP ONE (10:09)
[2016-11-08] MEDS ORDERED: MAGNESIUM SULFATE 4 MEQ/ML 2 ML VIAL ONE (10:09)
[2016-11-08] MEDS ORDERED: SODIUM CHLORIDE 0.9% IRRIG 1,000 ML BTL IRRIGATION ONE (10:09)
[2016-11-08] MEDS ORDERED: VECURONIUM 10 MG VIAL IV ONE (10:09)
[2016-11-08] MEDS ORDERED: SODIUM CHLORIDE 0.9% (PF) 10 ML VIAL ONE (10:09)
[2016-11-08] MEDS ORDERED: MIDAZOLAM 2 MG/2 ML VIAL ONE (10:09)
[2016-11-08] MEDS ORDERED: PROTAMINE SULFATE 10 MG/ML 5 ML VIAL IV ONE (10:09)
[2016-11-08] MEDS ORDERED: SUCCINYLCHOLINE CHLORIDE VIAL 200 MG/10 ML VIAL IV ONE (10:09)
[2016-11-08] MEDS ORDERED: ALBUMIN HUMAN 5% 500 ML VIAL IVPB ONE (10:09)
[2016-11-08] MEDS ORDERED: fentaNYL (PF) 50 MCG/ML 2 ML AMP ONE (10:09)
[2016-11-08] MEDS ORDERED: fentaNYL (PF) 50 MCG/ML 50 ML VIAL ONE (10:09)
[2016-11-08] MEDS ORDERED: PHENYLEPHRINE-0.9% NACL SYG 1 MG/10 ML SYRINGE ONE (10:09)
[2016-11-08] MEDS ORDERED: HEPARIN SODIUM,PORCINE 10,000 UNIT/ML 1 ML VIAL ONE (10:09)
[2016-11-08] MEDS ORDERED: PROPOFOL 10 MG/ML 20 ML VIAL IV ONE (10:09)
[2016-11-08 10:49] LABS: Glucose,Whole Blood 131 mg/dL (75-99)
--- NOTE | 2016-11-08 10:52 | P.PN ---
Progress Note - Text 5 meter walk test: #1 4.99 sec, #2 5.17 sec, #3 4.74 sec
[2016-11-08 14:24] LABS: Glucose,Whole Blood 134 mg/dL (75-99)
[2016-11-08 15:09] LABS: Glucose,Whole Blood 131 mg/dL (75-99)
[2016-11-08 15:55] LABS: Glucose,Whole Blood 126 mg/dL (75-99)
[2016-11-08 16:50] LABS: Glucose,Whole Blood 117 mg/dL (75-99)
--- NOTE | 2016-11-08 17:38 | P.OP ---
Date of Procedure: 11/08/16 Preoperative Diagnosis: Coronary artery disease, paroxysmal atrial fibrillation Postoperative Diagnosis: Same Procedure(s) Performed: Off pump coronary artery bypass grafting 3 with right internal mammary artery graft to LAD, left internal mammary artery graft to obtuse marginal, jump graft with portion of left internal mammary artery from right internal mammary artery to first diagonal, modified Lau maze procedure with bilateral pulmonary vein ablation and ligation of left atrial appendage with a 40 mm AtriCure clip. Implants: 40 mm AtriCure clip Anesthesia: GETA Surgeon: Javan Jensen Digital Media Coordinator #1: Christopher Smith Digital Media Coordinator #2: Zenon Dos Santos Pathology: none sent Condition: stable Disposition: ICU Indications for Procedure: The patient presented with shortness of breath and was found to be in new onset A. fib with RVR. Echocardiogram demonstrated severe left ventricular dysfunction. He underwent cardioversion with improvement in his ventricular function. He underwent cardiac catheterization that showed severe left main and proximal LAD and diagonal disease. Coronary artery bypass grafting was recommended by Dr. Mccullough. Operative Findings: Internal mammary arteries were excellent conduits. Coronary artery targets were good. The left ventricle was hypertrophic and somewhat dilated but with near normal systolic function by KANNAN. There was no significant valvular heart disease by KANNAN. Description of Procedure: The patient was brought to the operating room placed supine on the operating table anesthetized and intubated. KANNAN probe was placed. Hanna catheter was placed. Hollsopple-Zora catheter and arterial line had been placed in the preop holding area. The anterior torso and lower extremities were sterilely prepped and draped. Midline sternotomy was performed and the left hemisternum retracted upwards. The left internal mammary was harvested on a vascularized pedicle left intact on its origin from the subclavian and divided distally. The left pleural space was drained with a 32-Zimbabwean chest tube. Next the right hemisternum was retracted upwards. The right internal mammary artery was harvested on a vascularized pedicle, left intact and surgeon from the subclavian and divided distally. Pleural space was drained with a 32-Zimbabwean chest tube. Both mammary arteries were excellent conduits. Standard sternal retractor was placed and the pericardium was opened in the midline. Heart was exposed pericardial sutures. Patient was systemically heparinized and ACT was maintained greater than 250 during grafting. Initial dissection was begun around the right pulmonary veins. The right pulmonary veins were encircled and ablation of the left atrium at the insertion of the right pulmonary veins was performed with the AtriCure clamp. 2 parallel lines were created. We next exposed the left pulmonary veins. We divided the ligament of Mart with a Bovie. We encircled the left pulmonary veins and performed ablation of the left atrium at the insertion of the left pulmonary veins with the AtriCure clamp. 2 parallel lines were performed. We sized the left atrial appendage and chose a 40 mm AtriCure clip. This was placed at the base of the left atrial appendage. The right internal mammary artery was tunneled through the right pleura and pericardium at the superior aspect of the pericardial sac. Was brought across the upper most portion of the ascending aorta into the left side of the pericardium. It was of more than adequate length to reach the left anterior descending coronary artery but was not long enough to sequence both the diagonal and the LAD. End-to-side anastomosis between the right internal mammary artery and the left anterior descending coronary artery was performed with 8-0 Prolene suture. The LAD was opened and blood flow control with a 2.0 mm flow through. It was a 2.5 mm vessel. Anastomosis was constructed with 8-0 Prolene, on completion of the anastomosis the flow through was removed effectively probing the proximal distal portion of the anastomosis. Suture was tied with good result and hemostasis and the inflow of the GABY to the LAD was opened. Next the left pleura was opened good to above the left phrenic nerve and the MAGANA brought into the pericardial space. It was not long enough to sequence the diagonal and obtuse marginal and therefore was used as a straight graft directly to the obtuse marginal. There was some excess length which was excised. This was placed on the back table. The obtuse marginal was stabilized and opened it was a 2 mm vessel. Blood flow was controlled with a 1.5 mm flow through. Anastomosis was constructed with the MAGANA in end-to-side fashion to the OM 8-0 Prolene suture. On completion anastomosis the flow through was removed 50 probe the proximal distal portion anastomosis. Suture was tied with good result and hemostasis and the inflow open. The heart was lowered into anatomic position. Bulldog clamps were placed proximally and distally on the right internal mammary artery about 2 inches proximal to the distal anastomosis. This artery was opened longitudinally and side to end anastomosis to the remaining piece of left internal mammary artery was performed with running 8-0 Prolene suture. The anastomosis the 2 bulldog clamps were removed and one was placed on the branch graft portion of left internal mammary artery. This was now anastomosed in end-to-side fashion to the first diagonal branch. The first diagonal was a 2 mm vessel. It was opened and blood flow control with a 1.5 mm flow through. Anastomosis of the jump graft portion of MAGANA to the first diagonal was performed with running 8-0 Prolene suture. On completion anastomosis the flow through was removed 50 probe the proximal distal portion anastomosis. Suture was tied with good result and hemostasis and the inflow open. All the grafts lay well and were more than adequate length. The JOSE pedicle stripper tacked surrounding epicardium to prevent kinking or tension on the grafts. Heparin was reversed with protamine. Chest was irrigated with antibiotic solution. Good hemostasis was verified throughout. Mediastinum was drained with a 36-Zimbabwean chest tube. Sternum was closed with 9 sternal wires. Fascia was closed with 0 Ethibond subcutaneous and subcuticular layers were closed with layers of Vicryl suture. Dry sterile dressings were applied the patient was transferred to the ICU in stable condition.
[2016-11-08 17:46] LABS: Glucose,Whole Blood 116 mg/dL (75-99)
[2016-11-08] MEDS ORDERED: Phosphorus Replacement Protoco 1 EACH MISC MISCELLANE PRN (17:46)
[2016-11-08] MEDS ORDERED: ONDANSETRON 4 MG/2 ML VIAL IVP PRN (17:46)
[2016-11-08] MEDS ORDERED: METOCLOPRAMIDE 5 MG/ML 2 ML VIAL IVP PRN (17:46)
[2016-11-08] MEDS ORDERED: CALCIUM GLUCONATE 2,000 MG in SODIUM CHLORIDE 0.9% 100 ML IVPB PRN (17:46)
[2016-11-08] MEDS ORDERED: BENZOCAINE/MENTHOL LOZENG 1 EACH LOZENGE MUCOUS MEM PRN (17:46)
[2016-11-08] MEDS ORDERED: MORPHINE SULFATE 2 MG/ML SYRINGE IVP PRN (17:46)
[2016-11-08] MEDS ORDERED: ALBUMIN HUMAN 5% 250 ML in EMPTY BAG 1 BAG IVPB PRN (17:46)
[2016-11-08] MEDS ORDERED: Magnesium Replacement Protocol 1 EACH MISC MISCELLANE PRN (17:46)
[2016-11-08] MEDS ORDERED: Potassium Replacement Protocol 1 EACH MISC MISCELLANE PRN (17:46)
[2016-11-08 17:49] LABS: ABG PH 7.32 (7.35-7.45)
[2016-11-08 17:50] LABS: ABG Base Excess -3.1 mmol/L; ABG HCO3 22 mmol/L (21-25); ABG PCO2 44 mmHg (35-45); ABG PO2 322 mmHg (83-108); ABG TCO2 23 mmol/L (19-24)
[2016-11-08] MEDS: PROPOFOL 500 MG in EMPTY BAG 1 BAG IV SCH ×2 (18:00→21:04)
[2016-11-08] MEDS ORDERED: INSULIN REGULAR 100 UNIT in SODIUM CHLORIDE 0.9% 100 ML IV SCH (18:00)
[2016-11-08] MEDS ORDERED: NITROGLYCERIN-D5W PMX 50 MG in DEXTROSE/WATER 1 250ML.BAG IV SCH (18:00)
[2016-11-08 18:03] LABS: Ionized Calcium 4.7 mg/dL (4.5-5.3)
[2016-11-08 18:05] LABS: INR 1.2 (<1.1); Partial Thromboplastin Time 26.6 sec (22.0-30.0); Prothrombin Time 12.3 sec (9.0-12.0)
[2016-11-08 18:09] LABS: Basophils % (A) 0 %; CH 29.6; CHCM 34.4; Eosinophils # (A) 0.1 k/uL (0-0.7); Eosinophils % (A) 1 %; HCT 25.2 % (39.0-53.0); HDW 2.47; Luc # (Auto) 0.04; Luc % (Auto) 1; Lymphocytes # (A) 1.4 k/uL (1.0-4.8); Lymphocytes % (A) 19 %; MCH 30.4 pg (25.0-35.0); MCHC 35.2 g/dL (31.0-37.0); MCV 86.3 fL (80.0-100.0); Mean Platelet Volume 7.7; Monocytes # (A) 0.2 k/uL (0-1.0); Monocytes % (A) 3 %; Neutrophils # (A) 5.6 k/uL (1.3-7.7); Neutrophils % (A) 76 %; RBC 2.91 m/uL (4.30-5.90); RDW 12.7 % (11.5-15.5); WBC 7.4 k/uL (3.8-10.6); WBC (Perox) 7.34
[2016-11-08 18:10] LABS: HGB 8.9 gm/dL (13.0-17.5)
[2016-11-08 18:12] LABS: Glucose,Whole Blood 128 mg/dL (75-99)
[2016-11-08 18:12] LABS: ALT 24 U/L (21-72); AST 21 U/L (17-59); Alkaline Phosphatase 30 U/L (38-126); Anion Gap 5 mmol/L; Blood Urea Nitrogen 13 mg/dL (9-20); Calcium 7.5 mg/dL (8.4-10.2); Carbon Dioxide 24 mmol/L (22-30); Chloride 109 mmol/L (98-107); Glucose 106 mg/dL (74-99); Magnesium 1.7 mg/dL (1.6-2.3); Non-African American GFR(MDRD) >60 (>60 ml/min/1.73 sqM); Potassium 4.4 mmol/L (3.5-5.1); Sodium 138 mmol/L (137-145); Total Bilirubin 1.1 mg/dL (0.2-1.3)
--- NOTE | 2016-11-08 18:12 | XR ---
EXAMINATION TYPE: XR chest 1V portable DATE OF EXAM: 11/08/2016 COMPARISON: 11/02/2016 HISTORY: Cardiac surgery TECHNIQUE: Single frontal view of the chest is obtained. FINDINGS: There are bilateral chest tubes. There is no sign of a pneumothorax. There is no heart estefania lure. There is right jugular catheter with the tip in the pulmonary artery. Endotracheal tube is in g ood position. There are sternal wires. IMPRESSION: There is some mild atelectasis in the left lung. No heart failure. No pneumothorax. Ches t tubes appear in good position.
[2016-11-08] MEDS: LACTATED RINGERS 1,000 ML IV SCH (18:34)
[2016-11-08] MEDS: ACETAMINOPHEN IV (For NPO) 1,000 MG in EMPTY BAG 1 BAG IVPB SCH (18:35)
[2016-11-08] MEDS: ceFAZolin 2 GM in SODIUM CHLORIDE 0.9% 100 ML IVPB SCH (18:35)
[2016-11-08 19:05] LABS: Glucose,Whole Blood 129 mg/dL (75-99)
[2016-11-08] MEDS: IPRATROPIUM-ALBUTEROL 3 ML NEB INHALATION SCH ×2 (19:11→23:59)
[2016-11-08] MEDS ORDERED: NALOXONE 0.4 MG/ML 1 ML VIAL IV PRN (19:13)
[2016-11-08 20:06] LABS: Glucose,Whole Blood 137 mg/dL (75-99)
[2016-11-08] MEDS: MAGNESIUM SULFATE-D5W PMX 1 GM in DEXTROSE/WATER 1 100ML.BAG IVPB SCH ×2 (20:08→21:05)
[2016-11-08 20:48] LABS: Basophils % (A) 0 %; CH 30.3; CHCM 34.5; Eosinophils # (A) 0.1 k/uL (0-0.7); Eosinophils % (A) 1 %; HCT 25.1 % (39.0-53.0); HDW 2.41; HGB 8.7 gm/dL (13.0-17.5); Luc # (Auto) 0.11; Luc % (Auto) 1; Lymphocytes # (A) 1.1 k/uL (1.0-4.8); Lymphocytes % (A) 13 %; MCH 30.5 pg (25.0-35.0); MCHC 34.6 g/dL (31.0-37.0); Monocytes # (A) 0.4 k/uL (0-1.0); Monocytes % (A) 5 %; Neutrophils # (A) 6.7 k/uL (1.3-7.7); Neutrophils % (A) 80 %; RBC 2.85 m/uL (4.30-5.90); WBC 8.4 k/uL (3.8-10.6); WBC (Perox) 8.31
[2016-11-08 21:03] LABS: Glucose,Whole Blood 138 mg/dL (75-99)
[2016-11-08] MEDS: CLEVIDIPINE BUTYRATE 25 MG in EMPTY BAG 1 BAG IV SCH (22:11)
[2016-11-08 22:16] LABS: Glucose,Whole Blood 157 mg/dL (75-99)
[2016-11-08] MEDS ORDERED: DEXMEDETOMIDINE IN 0.9 % NACL 400 MCG in EMPTY BAG 1 BAG IV SCH (22:30)
[2016-11-08 23:00] LABS: Glucose,Whole Blood 151 mg/dL (75-99)
--- NOTE | 2016-11-08 23:01 | P.CNPUL ---
History of Present Illness Consult date: 11/08/16 Requesting physician: Javan Jensen Chief complaint: Status post CABG History of present illness: This is a 61-year-old white male with history of paroxysmal atrial fibrillation , nonischemic cardiomyopathy, patient was successfully cardioverted about 6 weeks ago. Stress test was abnormal hence a cardiac catheterization was done on 11/02/2016 and it showed a 65% distal left main disease with mild disease in the LAD circumflex and RCA. Hence the patient off pump coronary artery bypass grafting 3 with a right internal mammary artery graft to LAD, left internal mammary graft to obtuse marginal, jump graft with portion of left internal mammary artery from right internal mammary artery to first diagonal, modified Lau maze procedure with bilateral pulmonary vein ablation and ligation of left atrial appendage with 14 mm atricure clip postoperatively, patient was sent to the ICU on mechanical ventilation, and I was asked to see him on consultation. Patient is presently on IMV mode rate of 14, and he is on 35% FiO2. Initial ABG showed a pO2 of 322 pCO2 of 44 pH of 7.32. Chest x-ray showed no evidence of active disease, postoperative changes were mostly noted. Review of Systems ROS unobtainable: due to endotracheal tube Past Medical History Past Medical History: Atrial Fibrillation, Coronary Artery Disease (CAD), Heart Failure, Hyperlipidemia, Hypertension, Skin Disorder Additional Past Medical History / Comment(s): precancerous skin lesions History of Any Multi-Drug Resistant Organisms: None Reported Past Surgical History: Heart Catheterization Additional Past Surgical History / Comment(s): ramón cataracts, recent cardioversion-May Past Anesthesia/Blood Transfusion Reactions: No Reported Reaction Past Psychological History: No Psychological Hx Reported Smoking Status: Current every day smoker Past Alcohol Use History: Occasional Additional Past Alcohol Use History / Comment(s): down 5 cigs/day, smoker on & off for 40 yrs. Past Drug Use History: None Reported - Past Family History Father History Unknown: Yes Family Medical History: Cancer Mother Family Medical History: Coronary Artery Disease (CAD) Brother(s) Family Medical History: No Reported History Sister(s) Family Medical History: No Reported History Daughter(s) Family Medical History: No Reported History Son(s) Family Medical History: No Reported History Medications and Allergies Home Medications Medication Instructions Recorded Confirmed Type Aspirin EC [Ecotrin Low Dose] 81 mg PO DAILY 08/22/16 11/08/16 History Atorvastatin [Lipitor] 40 mg PO DAILY 08/22/16 11/08/16 History Losartan Potassium [Cozaar] 25 mg PO HS 09/14/16 11/08/16 History Metoprolol Succinate [Toprol XL] 50 mg PO DAILY 09/14/16 11/08/16 History Multivitamins, Thera [Multivitamin 1 tab PO DAILY 09/14/16 11/08/16 History (formulary)] Nicotine 21Mg/24Hr Patch [Habitrol 1 patch TRANSDERM DAILY 11/07/16 11/08/16 History 21Mg/24Hr Patch] Allergies Allergy/AdvReac Type Severity Reaction Status Date / Time No Known Allergies Allergy Verified 11/08/16 07:42 Physical Exam Vitals: Vital Signs Temp Pulse Pulse Resp BP Pulse Ox 11/08/16 22:00 93 18 97 11/08/16 21:30 76 14 97 11/08/16 21:00 81 13 97 11/08/16 20:30 91 45 H 100 11/08/16 20:00 68 14 100 11/08/16 19:32 75 11/08/16 19:30 74 14 100 11/08/16 19:20 73 11/08/16 19:00 79 12 98 11/08/16 18:45 80 12 100 11/08/16 18:30 81 12 100 11/08/16 18:20 81 11 L 100 11/08/16 18:10 84 12 100 11/08/16 18:00 86 12 100 11/08/16 17:50 82 13 100 11/08/16 17:47 81 15 100 11/08/16 07:45 97.5 F L 61 16 126/59 97 Intake and Output 11/08/16 11/08/16 11/08/16 06:59 14:59 22:59 Intake Total 33 780.983 Output Total 2834 Balance 33 -2053.017 Intake: IV 33 720 ACETAMINOPHEN IV (For NPO 100 ) 1,000 mg In Empty Bag 1 bag @ 400 mls/hr IVPB Q6HR TOM Rx#:[id number] CO/CI 70 Lactated Ringers 1,000 ml 250 @ 50 mls/hr IV .Q20H TOM Rx#:[id number] Magnesium Sulfate-D5w Pmx 200 1 gm In Dextrose/Water 1 100ml.bag @ 100 mls/hr IVPB Q1H TOM Rx#: [id number] ceFAZolin 2 gm In Sodium 100 Chloride 0.9% 100 ml @ 100 mls/hr IVPB Q8H TOM Rx#:[id number] Intake, IV Titration 60.983 Amount Insulin Regular 100 unit 5.433 In Sodium Chloride 0.9% 100 ml @ Per Protocol IV .Q0M TOM Rx#:[id number] Nitroglycerin-D5w Pmx 50 5.55 mg In Dextrose/Water 1 250ml.bag @ 5 MCG/MIN 1.5 mls/hr IV .Q24H TOM Rx#: [id number] Propofol 500 mg In Empty 50.000 Bag 1 bag @ Titrate IV . Q0M TOM Rx#:[id number] Output: Chest Tube Drainage 434 Chest Tube Left Pleural/ 320 Mediastinal Chest Tube Right Lateral 114 Chest Urine 1000 Estimated Blood Loss 1400 Other: Voiding Method Indwelling Catheter Weight 104.3 kg Patient Weight 11/09/16 06:59 Weight 104.3 kg ABP, PAP, CO, CI - Last 8 Hours Arterial Blood Pressure 131/50 Arterial Blood Pressure 116/51 Arterial Blood Pressure 123/55 Arterial Blood Pressure 147/69 Arterial Blood Pressure 109/47 Arterial Blood Pressure 101/45 Arterial Blood Pressure 100/46 Arterial Blood Pressure 108/48 Arterial Blood Pressure 114/50 Arterial Blood Pressure 113/49 Arterial Blood Pressure 146/59 Arterial Blood Pressure 136/57 Arterial Blood Pressure 139/62 Pulmonary Artery Pressure 53/20 Pulmonary Artery Pressure 31/18 Pulmonary Artery Pressure 32/18 Pulmonary Artery Pressure 52/26 Pulmonary Artery Pressure 29/16 Pulmonary Artery Pressure 28/16 Pulmonary Artery Pressure 32/18 Pulmonary Artery Pressure 34/19 Pulmonary Artery Pressure 36/20 Pulmonary Artery Pressure 40/21 Pulmonary Artery Pressure 42/23 Pulmonary Artery Pressure 49/27 Pulmonary Artery Pressure 47/26 Pulmonary Artery Pressure 47/27 Cardiac Output 6.2 Cardiac Output 6.2 Cardiac Output 5.6 Cardiac Output 5.6 Cardiac Output 5.6 Cardiac Output 6.5 Cardiac Output 6.5 Cardiac Output 6.8 Cardiac Output 6.8 Cardiac Output 6.8 Cardiac Output 6.8 Cardiac Output 7.3 Cardiac Output 7.3 Cardiac Output 7.3 Cardiac Index 2.7 Cardiac Index 2.7 Cardiac Index 2.5 Cardiac Index 2.9 Cardiac Index 3.0 Cardiac Index 3.2 Physical Exam: Revealed a 61-year-old white male on mechanical ventilation, sedated, in no distress. HEENT:[Neck is supple.] [No neck masses.] [No thyromegaly.] [No JVD.] Endotracheal tube, orogastric tube are intact. Chest: [Diminished breath sounds at the bases no crackles or rhonchi or wheezes. ] Cardiac Exam: [Normal S1 and S2, no S3 gallop, no murmur.] Abdomen: [Soft, nontender, no megaly, no rebound, no guarding, normal bowel sounds.] Extremities: [No clubbing, no edema, no cyanosis.] Neurological Exam: Not be assessed, patient is fully sedated. Results - Laboratory Findings CBC and BMP: 11/08/16 20:00 11/08/16 17:30 ABG ABG pH 7.32 (7.35-7.45) L 11/08/16 17:39 ABG pCO2 44 mmHg (35-45) 11/08/16 17:39 ABG pO2 322 mmHg (83-108) H 11/08/16 17:39 ABG O2 Saturation 100.0 % (94-97) H 11/08/16 17:39 PT/INR, D-dimer PT 12.3 sec (9.0-12.0) H 11/08/16 17:30 INR 1.2 (<1.1) 11/08/16 17:30 Abnormal lab findings: Abnormal Labs 11/07/16 11/08/16 11/08/16 14:16 08:57 10:48 RBC Hgb Hct Plt Count PT ABG pH ABG pO2 ABG O2 Saturation Chloride Glucose POC Glucose (mg/dL) 147 H 131 H Calcium Alkaline Phosphatase Total Protein Albumin Crossmatch See Detail 11/08/16 11/08/16 11/08/16 14:21 14:55 15:53 RBC Hgb Hct Plt Count PT ABG pH ABG pO2 ABG O2 Saturation Chloride Glucose POC Glucose (mg/dL) 134 H 131 H 126 H Calcium Alkaline Phosphatase Total Protein Albumin Crossmatch 11/08/16 11/08/16 11/08/16 16:47 17:30 17:30 RBC 2.91 L Hgb 8.9 L D Hct 25.2 L Plt Count 129 L PT ABG pH ABG pO2 ABG O2 Saturation Chloride 109 H Glucose 106 H POC Glucose (mg/dL) 117 H Calcium 7.5 L Alkaline Phosphatase 30 L Total Protein 5.0 L Albumin 3.2 L Crossmatch 11/08/16 11/08/16 11/08/16 17:30 17:39 17:43 RBC Hgb Hct Plt Count PT 12.3 H ABG pH 7.32 L ABG pO2 322 H ABG O2 Saturation 100.0 H Chloride Glucose POC Glucose (mg/dL) 116 H Calcium Alkaline Phosphatase Total Protein Albumin Crossmatch 11/08/16 11/08/16 11/08/16 18:11 19:03 20:00 RBC 2.85 L Hgb 8.7 L Hct 25.1 L Plt Count 134 L PT ABG pH ABG pO2 ABG O2 Saturation Chloride Glucose POC Glucose (mg/dL) 128 H 129 H Calcium Alkaline Phosphatase Total Protein Albumin Crossmatch 11/08/16 11/08/16 11/08/16 20:05 21:01 22:15 RBC Hgb Hct Plt Count PT ABG pH ABG pO2 ABG O2 Saturation Chloride Glucose POC Glucose (mg/dL) 137 H 138 H 157 H Calcium Alkaline Phosphatase Total Protein Albumin Crossmatch - Diagnostic Findings Chest x-ray: image reviewed (As noted above) Assessment and Plan Plan: Impression: Status post CABG, patient is presently on mechanical ventilation as expected, and I plan to wean and extubate hopefully in the next few hours. 2 multiple comorbidities including hypertension, hyperlipidemia, history of atrial fibrillation, history of cardioversion, history of tobacco abuse, in remission, and history of nonischemic cardiomyopathy history of obesity. Recommendation: Patient was switched from propofol to Precedex, and I plan to wean him and extubate him in the next few hours. We'll continue to follow. Time with Patient: Greater than 30
[2016-11-08 23:09] LABS: Basophils % (A) 0 %; CH 30.3; CHCM 34.7; Eosinophils # (A) 0.1 k/uL (0-0.7); Eosinophils % (A) 1 %; HCT 26.5 % (39.0-53.0); HDW 2.45; Luc # (Auto) 0.07; Luc % (Auto) 1; Lymphocytes # (A) 0.8 k/uL (1.0-4.8); Lymphocytes % (A) 8 %; MCH 29.8 pg (25.0-35.0); MCHC 34.1 g/dL (31.0-37.0); MCV 87.5 fL (80.0-100.0); Mean Platelet Volume 9.1; Monocytes # (A) 0.5 k/uL (0-1.0); Monocytes % (A) 5 %; Neutrophils # (A) 8.4 k/uL (1.3-7.7); Neutrophils % (A) 86 %; RBC 3.03 m/uL (4.30-5.90); WBC 9.8 k/uL (3.8-10.6); WBC (Perox) 8.84
[2016-11-08 23:22] LABS: Ionized Calcium 4.8 mg/dL (4.5-5.3)
[2016-11-08 23:30] LABS: Anion Gap 6 mmol/L; Blood Urea Nitrogen 14 mg/dL (9-20); Calcium 7.9 mg/dL (8.4-10.2); Carbon Dioxide 24 mmol/L (22-30); Chloride 107 mmol/L (98-107); Glucose 129 mg/dL (74-99); Non-African American GFR(MDRD) >60 (>60 ml/min/1.73 sqM); Potassium 4.6 mmol/L (3.5-5.1); Sodium 137 mmol/L (137-145)
[2016-11-08 23:46] LABS: ABG Base Excess -2.5 mmol/L; ABG HCO3 22 mmol/L (21-25); ABG PCO2 38 mmHg (35-45); ABG PH 7.38 (7.35-7.45); ABG PO2 101 mmHg (83-108); ABG TCO2 23 mmol/L (19-24)
[2016-11-09] MEDS: ACETAMINOPHEN IV (For NPO) 1,000 MG in EMPTY BAG 1 BAG IVPB SCH ×4 (00:08→19:12)
[2016-11-09 00:15] LABS: Glucose,Whole Blood 141 mg/dL (75-99)
[2016-11-09] MEDS: HEPARIN SODIUM,PORCINE 5,000 UNIT/ML 1 ML VIAL SQ SCH ×3 (01:00→16:31)
[2016-11-09 01:22] LABS: Glucose,Whole Blood 138 mg/dL (75-99)
[2016-11-09] MEDS: ceFAZolin 2 GM in SODIUM CHLORIDE 0.9% 100 ML IVPB SCH ×2 (02:45→09:57)
[2016-11-09 03:00] LABS: Glucose,Whole Blood 117 mg/dL (75-99)
[2016-11-09 04:07] LABS: Glucose,Whole Blood 151 mg/dL (75-99)
[2016-11-09 04:23] LABS: Basophils % (A) 0 %; CH 30.2; CHCM 34.8; Eosinophils % (A) 0 %; HDW 2.47; HGB 8.9 gm/dL (13.0-17.5); Luc # (Auto) 0.09; Luc % (Auto) 1; Lymphocytes # (A) 0.6 k/uL (1.0-4.8); Lymphocytes % (A) 6 %; MCH 29.9 pg (25.0-35.0); MCHC 34.3 g/dL (31.0-37.0); MCV 87.1 fL (80.0-100.0); Mean Platelet Volume 7.4; Monocytes # (A) 0.5 k/uL (0-1.0); Monocytes % (A) 5 %; Neutrophils # (A) 9.7 k/uL (1.3-7.7); Neutrophils % (A) 88 %; RBC 2.99 m/uL (4.30-5.90); WBC (Perox) 10.23
[2016-11-09 04:27] LABS: Ionized Calcium 4.9 mg/dL (4.5-5.3)
[2016-11-09 04:28] LABS: INR 1.2 (<1.1); Prothrombin Time 11.7 sec (9.0-12.0)
[2016-11-09 04:33] LABS: ALT 31 U/L (21-72); AST 34 U/L (17-59); Alkaline Phosphatase 38 U/L (38-126); Anion Gap 7 mmol/L; Blood Urea Nitrogen 15 mg/dL (9-20); Carbon Dioxide 24 mmol/L (22-30); Chloride 106 mmol/L (98-107); Glucose 121 mg/dL (74-99); Magnesium 2.3 mg/dL (1.6-2.3); Non-African American GFR(MDRD) >60 (>60 ml/min/1.73 sqM); Phosphorous 3.3 mg/dL (2.5-4.5); Potassium 4.6 mmol/L (3.5-5.1); Sodium 137 mmol/L (137-145); Total Bilirubin 0.6 mg/dL (0.2-1.3); Total Protein 4.8 g/dL (6.3-8.2)
[2016-11-09 06:39] LABS: Glucose,Whole Blood 134 mg/dL (75-99)
--- NOTE | 2016-11-09 07:20 | XR ---
EXAMINATION TYPE: XR chest 1V DATE OF EXAM: 11/09/2016 HISTORY: vent management. REFERENCE: Previous study dated 11/08/2016. FINDINGS: There has been a midline sternotomy. Bilateral pleural drains remain in place. There is a S wan-Zora catheter in place via a right internal jugular approach. Its tip is in the main pulmonary ar vanita. There is bibasilar airspace disease. Heart size is upper limits of normal. There is vascular congesti on without meghan edema. I suspect small, bilateral effusions. IMPRESSION: CONTINUING POSTOPERATIVE CHANGE.
[2016-11-09 07:56] LABS: Glucose,Whole Blood 128 mg/dL (75-99)
[2016-11-09] MEDS: CLOPIDOGREL 75 MG TAB PO SCH (08:17)
[2016-11-09] MEDS: ASPIRIN 325 MG TAB PO SCH (08:17)
[2016-11-09] MEDS: ATORVASTATIN 40 MG TAB PO SCH (08:17)
[2016-11-09 08:57] LABS: Glucose,Whole Blood 130 mg/dL (75-99)
[2016-11-09] MEDS ORDERED: PANTOPRAZOLE 40 MG/10 ML VIAL IVP SCH (09:00)
[2016-11-09] MEDS ORDERED: METOPROLOL TARTRATE 12.5 MG TAB PO SCH (09:00)
[2016-11-09] MEDS: IPRATROPIUM-ALBUTEROL 3 ML NEB INHALATION PRN ×4 (09:03→19:44)
[2016-11-09 10:02] LABS: Glucose,Whole Blood 163 mg/dL (75-99)
[2016-11-09 10:25] LABS: ABG Base Excess -0.4 mmol/L; ABG HCO3 24 mmol/L (21-25); ABG Oxygen Saturation 99.7 % (94-97); ABG PCO2 40 mmHg (35-45); ABG PH 7.39 (7.35-7.45); ABG PO2 204 mmHg (83-108); ABG TCO2 25 mmol/L (19-24)
[2016-11-09 10:26] LABS: ABG Base Excess -0.7 mmol/L; ABG HCO3 24 mmol/L (21-25); ABG Oxygen Saturation 99.9 % (94-97); ABG PCO2 40 mmHg (35-45); ABG PH 7.39 (7.35-7.45); ABG PO2 267 mmHg (83-108); ABG TCO2 25 mmol/L (19-24)
[2016-11-09 10:27] LABS: ABG HCO3 23 mmol/L (21-25); ABG Oxygen Saturation 99.9 % (94-97); ABG PCO2 39 mmHg (35-45); ABG PH 7.39 (7.35-7.45); ABG PO2 335 mmHg (83-108); ABG TCO2 25 mmol/L (19-24)
[2016-11-09 10:28] LABS: ABG Base Excess -1.5 mmol/L; ABG HCO3 22 mmol/L (21-25); ABG Oxygen Saturation 99.8 % (94-97); ABG PCO2 36 mmHg (35-45); ABG PH 7.41 (7.35-7.45); ABG PO2 231 mmHg (83-108); ABG TCO2 24 mmol/L (19-24)
[2016-11-09 10:29] LABS: ABG Base Excess -1.6 mmol/L; ABG HCO3 23 mmol/L (21-25); ABG Oxygen Saturation 99.9 % (94-97); ABG PCO2 37 mmHg (35-45); ABG PO2 283 mmHg (83-108); ABG TCO2 24 mmol/L (19-24)
[2016-11-09] MEDS ORDERED: METOPROLOL TARTRATE 12.5 MG TAB PO STA (10:59)
--- NOTE | 2016-11-09 11:09 | P.PN ---
Subjective Principal diagnosis: Coronary artery disease. Paroxysmal atrial fibrillation. POD #1 off-pump coronary artery bypass grafting 3 with right internal mammary artery graft to LAD, left internal mammary artery graft to obtuse marginal, jump graft with portion of left internal mammary artery from right internal mammary artery to first diagonal, modified Lau maze procedure with bilateral pulmonary vein ablation and ligation of left atrial appendage with a 40 mm AtriCure clip. The patient's currently sitting up in a recliner in no acute distress. States his pain is controlled. Was extubated last night at 2350. Tolerating clear liquids. Objective - Vital Signs Vital signs: Vital Signs Temp 97.5 F L 11/08/16 07:45 Pulse 84 11/09/16 10:00 Resp 17 11/09/16 10:00 BP 126/59 11/08/16 07:45 Pulse Ox 92 L 11/09/16 10:00 Intake & Output 11/08/16 11/09/16 11/09/16 18:59 06:59 18:59 Intake Total 578.899 0944.168 370.165 Output Total 2135 1505 185 Balance -2029.485 166.168 185.165 Weight 104.3 kg 104.6 kg 104.6 kg Intake: IV 93 1420 210 ACETAMINOPHEN IV (For NPO 300 ) 1,000 mg In Empty Bag 1 bag @ 400 mls/hr IVPB Q6HR TOM Rx#:[id number] CO/CI 10 120 10 Lactated Ringers 1,000 ml 50 600 100 @ 50 mls/hr IV .Q20H TOM Rx#:[id number] Magnesium Sulfate-D5w Pmx 200 1 gm In Dextrose/Water 1 100ml.bag @ 100 mls/hr IVPB Q1H TOM Rx#: [id number] ceFAZolin 2 gm In Sodium 200 100 Chloride 0.9% 100 ml @ 100 mls/hr IVPB Q8H TOM Rx#:[id number] Intake, IV Titration 12.515 131.168 40.165 Amount Dexmedetomidine in 0.9 % 61.363 30.073 NaCl 400 mcg In Empty Bag 1 bag @ Titrate IV .Q0M TOM Rx#:[id number] Insulin Regular 100 unit 19.170 10.092 In Sodium Chloride 0.9% 100 ml @ Per Protocol IV .Q0M TOM Rx#:[id number] Nitroglycerin-D5w Pmx 50 13.15 mg In Dextrose/Water 1 250ml.bag @ 5 MCG/MIN 1.5 mls/hr IV .Q24H TOM Rx#: [id number] Propofol 500 mg In Empty 12.515 37.485 Bag 1 bag @ Titrate IV . Q0M TOM Rx#:[id number] Oral 120 120 Output: Chest Tube Drainage 75 775 75 Chest Tube Left Pleural/ 75 585 70 Mediastinal Chest Tube Right Lateral 0 190 5 Chest Urine 660 730 110 Estimated Blood Loss 1400 Other: Voiding Method Indwelling Catheter Indwelling Catheter # Bowel Movements 0 0 ABP, PAP, CO, CI - Last Documented Arterial Blood Pressure 117/49 Pulmonary Artery Pressure 24/13 Cardiac Output 6.8 Cardiac Index 3.0 - Constitutional General appearance: Present: cooperative, no acute distress - Respiratory Details: Lungs sounds diminished bilaterally. Respirations even, nonlabored. Currently on room air with oxygen saturation 94%. Able to achieve 500-750 mL on his incentive spirometry. Mediastinal chest tube to -20 cm wall suction, 230 mL serosanguineous drainage overnight, 650 mL since surgery. Right pleural chest tube to -27 m wall suction, 46 mL serosanguineous drainage overnight, 110 mL since surgery. No air leaks present. - Cardiovascular Details: S1, S2 present. Regular rate and rhythm, normal sinus on telemetry. Sternum stable. Heart hugger in place with patient demonstrate appropriate use. Teds/ SCDs present. Left radial arterial line, right internal jugular Cordis/Marshall- Zora catheter present. No edema present. - Gastrointestinal Gastrointestinal Comment(s): Abdomen soft, nontender, nondistended. Hypoactive bowel sounds 4 quadrants. Negative flatus. Tolerating clear liquids. - Genitourinary Genitourinary Comment(s): Hanna present draining clear, yellow urine. Output 30-50 mL per hour. - Integumentary Integumentary Comment(s): Anterior chest incision well approximated and covered with dry intact dressing. - Musculoskeletal Musculoskeletal: Present: gait normal, strength equal bilaterally - Psychiatric Psychiatric: Present: A&O x's 3, appropriate affect, intact judgment & insight - Allied health notes Allied health notes reviewed: nursing - Labs CBC & Chem 7: 11/09/16 04:00 11/09/16 04:00 Labs: Abnormal Lab Results - Last 24 Hours (Table) 11/07/16 11/08/16 11/08/16 Range/Units 14:16 10:49 14:20 WBC (3.8-10.6) k/uL RBC (4.30-5.90) m/uL Hgb (13.0-17.5) gm/dL Hct (39.0-53.0) % Plt Count (150-450) k/uL Neutrophils # (1.3-7.7) k/uL Lymphocytes # (1.0-4.8) k/uL PT (9.0-12.0) sec ABG pH (7.35-7.45) ABG pO2 204 H 267 H (83-108) mmHg ABG Total CO2 25 H 25 H (19-24) mmol/L ABG O2 Saturation 99.7 H 99.9 H (94-97) % ABG Hematocrit 28 L (34.0-46.0) % ABG Potassium 4.9 H (3.4-4.5) mmol/L Chloride (98-107) mmol/L Glucose (74-99) mg/dL POC Glucose (mg/dL) (75-99) mg/dL Calcium (8.4-10.2) mg/dL Alkaline Phosphatase (38-126) U/L Total Protein (6.3-8.2) g/dL Albumin (3.5-5.0) g/dL Arterial Blood Potassium 4.9 H (3.4-4.5) mmol/L Crossmatch See Detail 11/08/16 11/08/16 11/08/16 Range/Units 14:21 14:55 14:55 WBC (3.8-10.6) k/uL RBC (4.30-5.90) m/uL Hgb (13.0-17.5) gm/dL Hct (39.0-53.0) % Plt Count (150-450) k/uL Neutrophils # (1.3-7.7) k/uL Lymphocytes # (1.0-4.8) k/uL PT (9.0-12.0) sec ABG pH (7.35-7.45) ABG pO2 335 H (83-108) mmHg ABG Total CO2 25 H (19-24) mmol/L ABG O2 Saturation 99.9 H (94-97) % ABG Hematocrit 27 L (34.0-46.0) % ABG Potassium (3.4-4.5) mmol/L Chloride (98-107) mmol/L Glucose (74-99) mg/dL POC Glucose (mg/dL) 134 H 131 H (75-99) mg/dL Calcium (8.4-10.2) mg/dL Alkaline Phosphatase (38-126) U/L Total Protein (6.3-8.2) g/dL Albumin (3.5-5.0) g/dL Arterial Blood Potassium (3.4-4.5) mmol/L Crossmatch 11/08/16 11/08/16 11/08/16 Range/Units 15:52 15:53 16:47 WBC (3.8-10.6) k/uL RBC (4.30-5.90) m/uL Hgb (13.0-17.5) gm/dL Hct (39.0-53.0) % Plt Count (150-450) k/uL Neutrophils # (1.3-7.7) k/uL Lymphocytes # (1.0-4.8) k/uL PT (9.0-12.0) sec ABG pH (7.35-7.45) ABG pO2 231 H (83-108) mmHg ABG Total CO2 (19-24) mmol/L ABG O2 Saturation 99.8 H (94-97) % ABG Hematocrit 23 L (34.0-46.0) % ABG Potassium (3.4-4.5) mmol/L Chloride (98-107) mmol/L Glucose (74-99) mg/dL POC Glucose (mg/dL) 126 H 117 H (75-99) mg/dL Calcium (8.4-10.2) mg/dL Alkaline Phosphatase (38-126) U/L Total Protein (6.3-8.2) g/dL Albumin (3.5-5.0) g/dL Arterial Blood Potassium (3.4-4.5) mmol/L Crossmatch 11/08/16 11/08/16 11/08/16 Range/Units 16:47 17:30 17:30 WBC (3.8-10.6) k/uL RBC 2.91 L (4.30-5.90) m/uL Hgb 8.9 L D (13.0-17.5) gm/dL Hct 25.2 L (39.0-53.0) % Plt Count 129 L (150-450) k/uL Neutrophils # (1.3-7.7) k/uL Lymphocytes # (1.0-4.8) k/uL PT (9.0-12.0) sec ABG pH (7.35-7.45) ABG pO2 283 H (83-108) mmHg ABG Total CO2 (19-24) mmol/L ABG O2 Saturation 99.9 H (94-97) % ABG Hematocrit 23 L (34.0-46.0) % ABG Potassium (3.4-4.5) mmol/L Chloride 109 H (98-107) mmol/L Glucose 106 H (74-99) mg/dL POC Glucose (mg/dL) (75-99) mg/dL Calcium 7.5 L (8.4-10.2) mg/dL Alkaline Phosphatase 30 L (38-126) U/L Total Protein 5.0 L (6.3-8.2) g/dL Albumin 3.2 L (3.5-5.0) g/dL Arterial Blood Potassium (3.4-4.5) mmol/L Crossmatch 11/08/16 11/08/16 11/08/16 Range/Units 17:30 17:39 17:43 WBC (3.8-10.6) k/uL RBC (4.30-5.90) m/uL Hgb (13.0-17.5) gm/dL Hct (39.0-53.0) % Plt Count (150-450) k/uL Neutrophils # (1.3-7.7) k/uL Lymphocytes # (1.0-4.8) k/uL PT 12.3 H (9.0-12.0) sec ABG pH 7.32 L (7.35-7.45) ABG pO2 322 H (83-108) mmHg ABG Total CO2 (19-24) mmol/L ABG O2 Saturation 100.0 H (94-97) % ABG Hematocrit (34.0-46.0) % ABG Potassium (3.4-4.5) mmol/L Chloride (98-107) mmol/L Glucose (74-99) mg/dL POC Glucose (mg/dL) 116 H (75-99) mg/dL Calcium (8.4-10.2) mg/dL Alkaline Phosphatase (38-126) U/L Total Protein (6.3-8.2) g/dL Albumin (3.5-5.0) g/dL Arterial Blood Potassium (3.4-4.5) mmol/L Crossmatch 11/08/16 11/08/16 11/08/16 Range/Units 18:11 19:03 20:00 WBC (3.8-10.6) k/uL RBC 2.85 L (4.30-5.90) m/uL Hgb 8.7 L (13.0-17.5) gm/dL Hct 25.1 L (39.0-53.0) % Plt Count 134 L (150-450) k/uL Neutrophils # (1.3-7.7) k/uL Lymphocytes # (1.0-4.8) k/uL PT (9.0-12.0) sec ABG pH (7.35-7.45) ABG pO2 (83-108) mmHg ABG Total CO2 (19-24) mmol/L ABG O2 Saturation (94-97) % ABG Hematocrit (34.0-46.0) % ABG Potassium (3.4-4.5) mmol/L Chloride (98-107) mmol/L Glucose (74-99) mg/dL POC Glucose (mg/dL) 128 H 129 H (75-99) mg/dL Calcium (8.4-10.2) mg/dL Alkaline Phosphatase (38-126) U/L Total Protein (6.3-8.2) g/dL Albumin (3.5-5.0) g/dL Arterial Blood Potassium (3.4-4.5) mmol/L Crossmatch 11/08/16 11/08/16 11/08/16 Range/Units 20:05 21:01 22:15 WBC (3.8-10.6) k/uL RBC (4.30-5.90) m/uL Hgb (13.0-17.5) gm/dL Hct (39.0-53.0) % Plt Count (150-450) k/uL Neutrophils # (1.3-7.7) k/uL Lymphocytes # (1.0-4.8) k/uL PT (9.0-12.0) sec ABG pH (7.35-7.45) ABG pO2 (83-108) mmHg ABG Total CO2 (19-24) mmol/L ABG O2 Saturation (94-97) % ABG Hematocrit (34.0-46.0) % ABG Potassium (3.4-4.5) mmol/L Chloride (98-107) mmol/L Glucose (74-99) mg/dL POC Glucose (mg/dL) 137 H 138 H 157 H (75-99) mg/dL Calcium (8.4-10.2) mg/dL Alkaline Phosphatase (38-126) U/L Total Protein (6.3-8.2) g/dL Albumin (3.5-5.0) g/dL Arterial Blood Potassium (3.4-4.5) mmol/L Crossmatch 11/08/16 11/08/16 11/08/16 Range/Units 22:58 23:00 23:00 WBC (3.8-10.6) k/uL RBC 3.03 L (4.30-5.90) m/uL Hgb 9.0 L (13.0-17.5) gm/dL Hct 26.5 L (39.0-53.0) % Plt Count 129 L (150-450) k/uL Neutrophils # 8.4 H (1.3-7.7) k/uL Lymphocytes # 0.8 L (1.0-4.8) k/uL PT (9.0-12.0) sec ABG pH (7.35-7.45) ABG pO2 (83-108) mmHg ABG Total CO2 (19-24) mmol/L ABG O2 Saturation (94-97) % ABG Hematocrit (34.0-46.0) % ABG Potassium (3.4-4.5) mmol/L Chloride (98-107) mmol/L Glucose 129 H (74-99) mg/dL POC Glucose (mg/dL) 151 H (75-99) mg/dL Calcium 7.9 L (8.4-10.2) mg/dL Alkaline Phosphatase (38-126) U/L Total Protein (6.3-8.2) g/dL Albumin (3.5-5.0) g/dL Arterial Blood Potassium (3.4-4.5) mmol/L Crossmatch 11/08/16 11/09/16 11/09/16 Range/Units 23:39 00:14 01:20 WBC (3.8-10.6) k/uL RBC (4.30-5.90) m/uL Hgb (13.0-17.5) gm/dL Hct (39.0-53.0) % Plt Count (150-450) k/uL Neutrophils # (1.3-7.7) k/uL Lymphocytes # (1.0-4.8) k/uL PT (9.0-12.0) sec ABG pH (7.35-7.45) ABG pO2 (83-108) mmHg ABG Total CO2 (19-24) mmol/L ABG O2 Saturation 98.0 H (94-97) % ABG Hematocrit (34.0-46.0) % ABG Potassium (3.4-4.5) mmol/L Chloride (98-107) mmol/L Glucose (74-99) mg/dL POC Glucose (mg/dL) 141 H 138 H (75-99) mg/dL Calcium (8.4-10.2) mg/dL Alkaline Phosphatase (38-126) U/L Total Protein (6.3-8.2) g/dL Albumin (3.5-5.0) g/dL Arterial Blood Potassium (3.4-4.5) mmol/L Crossmatch 11/09/16 11/09/16 11/09/16 Range/Units 02:57 04:00 04:00 WBC 11.0 H (3.8-10.6) k/uL RBC 2.99 L (4.30-5.90) m/uL Hgb 8.9 L (13.0-17.5) gm/dL Hct 26.0 L (39.0-53.0) % Plt Count 137 L (150-450) k/uL Neutrophils # 9.7 H (1.3-7.7) k/uL Lymphocytes # 0.6 L (1.0-4.8) k/uL PT (9.0-12.0) sec ABG pH (7.35-7.45) ABG pO2 (83-108) mmHg ABG Total CO2 (19-24) mmol/L ABG O2 Saturation (94-97) % ABG Hematocrit (34.0-46.0) % ABG Potassium (3.4-4.5) mmol/L Chloride (98-107) mmol/L Glucose 121 H (74-99) mg/dL POC Glucose (mg/dL) 117 H (75-99) mg/dL Calcium 8.0 L (8.4-10.2) mg/dL Alkaline Phosphatase (38-126) U/L Total Protein 4.8 L (6.3-8.2) g/dL Albumin 3.1 L (3.5-5.0) g/dL Arterial Blood Potassium (3.4-4.5) mmol/L Crossmatch 11/09/16 11/09/16 11/09/16 Range/Units 04:06 06:38 07:54 WBC (3.8-10.6) k/uL RBC (4.30-5.90) m/uL Hgb (13.0-17.5) gm/dL Hct (39.0-53.0) % Plt Count (150-450) k/uL Neutrophils # (1.3-7.7) k/uL Lymphocytes # (1.0-4.8) k/uL PT (9.0-12.0) sec ABG pH (7.35-7.45) ABG pO2 (83-108) mmHg ABG Total CO2 (19-24) mmol/L ABG O2 Saturation (94-97) % ABG Hematocrit (34.0-46.0) % ABG Potassium (3.4-4.5) mmol/L Chloride (98-107) mmol/L Glucose (74-99) mg/dL POC Glucose (mg/dL) 151 H 134 H 128 H (75-99) mg/dL Calcium (8.4-10.2) mg/dL Alkaline Phosphatase (38-126) U/L Total Protein (6.3-8.2) g/dL Albumin (3.5-5.0) g/dL Arterial Blood Potassium (3.4-4.5) mmol/L Crossmatch 11/09/16 11/09/16 Range/Units 08:56 10:00 WBC (3.8-10.6) k/uL RBC (4.30-5.90) m/uL Hgb (13.0-17.5) gm/dL Hct (39.0-53.0) % Plt Count (150-450) k/uL Neutrophils # (1.3-7.7) k/uL Lymphocytes # (1.0-4.8) k/uL PT (9.0-12.0) sec ABG pH (7.35-7.45) ABG pO2 (83-108) mmHg ABG Total CO2 (19-24) mmol/L ABG O2 Saturation (94-97) % ABG Hematocrit (34.0-46.0) % ABG Potassium (3.4-4.5) mmol/L Chloride (98-107) mmol/L Glucose (74-99) mg/dL POC Glucose (mg/dL) 130 H 163 H (75-99) mg/dL Calcium (8.4-10.2) mg/dL Alkaline Phosphatase (38-126) U/L Total Protein (6.3-8.2) g/dL Albumin (3.5-5.0) g/dL Arterial Blood Potassium (3.4-4.5) mmol/L Crossmatch - Imaging and Cardiology Chest x-ray: report reviewed, image reviewed Assessment and Plan (1) History of atrial fibrillation Status: Acute (2) History of cardioversion Status: Acute (3) Hyperlipidemia Status: Acute (4) Tobacco abuse, in remission Status: Acute (5) Nonischemic cardiomyopathy Status: Acute (6) Obesity (BMI 30.0-34.9) Status: Acute (7) Hypertension Status: Acute Plan: 1. Continue aspirin, statin, Plavix, heparin, Lopressor. Will increase Lopressor to 25 mg by mouth twice a day, will maximize beta jenifer therapy as tolerated. 2. Encourage incentive spirometry use. 3. Increase activity, out of bed to chair. Physical therapy to follow. 4. GI/DVT prophylaxis. 5. Insulin drip/diabetic management per primary care service. 6. Will discontinue Marshall-Zora catheter. 7. More recommendations as patient progresses. Time with Patient: Greater than 30
[2016-11-09 11:10] LABS: Glucose,Whole Blood 157 mg/dL (75-99)
--- NOTE | 2016-11-09 11:53 | P.PN ---
Subjective Principal diagnosis: Status post CABG, postoperative day #1 This is a 61-year-old white male with history of paroxysmal atrial fibrillation , nonischemic cardiomyopathy, patient was successfully cardioverted about 6 weeks ago. Stress test was abnormal hence a cardiac catheterization was done on 11/02/2016 and it showed a 65% distal left main disease with mild disease in the LAD circumflex and RCA. Hence the patient off pump coronary artery bypass grafting 3 with a right internal mammary artery graft to LAD, left internal mammary graft to obtuse marginal, jump graft with portion of left internal mammary artery from right internal mammary artery to first diagonal, modified Lau maze procedure with bilateral pulmonary vein ablation and ligation of left atrial appendage with 14 mm atricure clip postoperatively, patient was sent to the ICU on mechanical ventilation, and I was asked to see him on consultation. Patient is presently on IMV mode rate of 14, and he is on 35% FiO2. Initial ABG showed a pO2 of 322 pCO2 of 44 pH of 7.32. Chest x-ray showed no evidence of active disease, postoperative changes were mostly noted. Patient was reevaluated today on 11/09/2016, he was extubated shortly after he was placed on Precedex, and this was around midnight. Patient is doing well, relatively asymptomatic. Continues to do poorly with incentive spirometry, chest x-ray is showing mostly postoperative changes, and by basilar atelectasis. There is vascular congestion, but no clear-cut evidence of pulmonary edema. Small bilateral effusions noted. Clinically however the patient is doing well. Objective - Vital Signs Vital signs: Vital Signs Temp 97.5 F L 11/08/16 07:45 Pulse 88 11/09/16 11:00 Resp 23 11/09/16 11:00 BP 126/59 11/08/16 07:45 Pulse Ox 93 L 11/09/16 11:00 Intake & Output 11/08/16 11/09/16 11/09/16 18:59 06:59 18:59 Intake Total 671.709 6078.168 410.165 Output Total 2135 1505 285 Balance -2029.485 166.168 125.165 Weight 104.3 kg 104.6 kg 104.6 kg Intake: IV 93 1420 250 ACETAMINOPHEN IV (For NPO 300 ) 1,000 mg In Empty Bag 1 bag @ 400 mls/hr IVPB Q6HR [facility] Rx#:[id number] CO/CI 10 120 10 Lactated Ringers 1,000 ml 50 600 140 @ 20 mls/hr IV .Q24H [facility] Rx#:[id number] Magnesium Sulfate-D5w Pmx 200 1 gm In Dextrose/Water 1 100ml.bag @ 100 mls/hr IVPB Q1H [facility] Rx#: [id number] ceFAZolin 2 gm In Sodium 200 100 Chloride 0.9% 100 ml @ 100 mls/hr IVPB Q8H [facility] Rx#:[id number] Intake, IV Titration 12.515 131.168 40.165 Amount Dexmedetomidine in 0.9 % 61.363 30.073 NaCl 400 mcg In Empty Bag 1 bag @ Titrate IV .Q0M [facility] Rx#:[id number] Insulin Regular 100 unit 19.170 10.092 In Sodium Chloride 0.9% 100 ml @ Per Protocol IV .Q0M [facility] Rx#:[id number] Nitroglycerin-D5w Pmx 50 13.15 mg In Dextrose/Water 1 250ml.bag @ 5 MCG/MIN 1.5 mls/hr IV .Q24H [facility] Rx#: [id number] Propofol 500 mg In Empty 12.515 37.485 Bag 1 bag @ Titrate IV . Q0M [facility] Rx#:[id number] Oral 120 120 Output: Chest Tube Drainage 75 775 135 Chest Tube Left Pleural/ 75 585 110 Mediastinal Chest Tube Right Lateral 0 190 25 Chest Urine 660 730 150 Estimated Blood Loss 1400 Other: Voiding Method Indwelling Catheter Indwelling Catheter # Bowel Movements 0 0 ABP, PAP, CO, CI - Last Documented Arterial Blood Pressure 141/51 Pulmonary Artery Pressure 24/13 Cardiac Output 6.8 Cardiac Index 3.0 - Exam Physical Exam: Revealed a 61-year-old white male in no distress. On nasal cannula, off mechanical ventilation. HEENT:[Neck is supple.] [No neck masses.] [No thyromegaly.] [No JVD.] Chest: [Diminished breath sounds and crackles at the bases, no rhonchi, no wheezes..] Cardiac Exam: [Normal S1 and S2, no S3 gallop, no murmur.] Abdomen: [Soft, nontender, no megaly, no rebound, no guarding, normal bowel sounds.] Extremities: [No clubbing, no edema, no cyanosis.] Neurological Exam: [No focal neurologic deficit.] - Labs CBC & Chem 7: 11/09/16 04:00 11/09/16 04:00 Labs: Abnormal Lab Results - Last 24 Hours (Table) 11/07/16 11/08/16 11/08/16 Range/Units 14:16 10:49 14:20 WBC (3.8-10.6) k/uL RBC (4.30-5.90) m/uL Hgb (13.0-17.5) gm/dL Hct (39.0-53.0) % Plt Count (150-450) k/uL Neutrophils # (1.3-7.7) k/uL Lymphocytes # (1.0-4.8) k/uL PT (9.0-12.0) sec ABG pH (7.35-7.45) ABG pO2 204 H 267 H (83-108) mmHg ABG Total CO2 25 H 25 H (19-24) mmol/L ABG O2 Saturation 99.7 H 99.9 H (94-97) % ABG Hematocrit 28 L (34.0-46.0) % ABG Potassium 4.9 H (3.4-4.5) mmol/L Chloride (98-107) mmol/L Glucose (74-99) mg/dL POC Glucose (mg/dL) (75-99) mg/dL Calcium (8.4-10.2) mg/dL Alkaline Phosphatase (38-126) U/L Total Protein (6.3-8.2) g/dL Albumin (3.5-5.0) g/dL Arterial Blood Potassium 4.9 H (3.4-4.5) mmol/L Crossmatch See Detail 11/08/16 11/08/16 11/08/16 Range/Units 14:21 14:55 14:55 WBC (3.8-10.6) k/uL RBC (4.30-5.90) m/uL Hgb (13.0-17.5) gm/dL Hct (39.0-53.0) % Plt Count (150-450) k/uL Neutrophils # (1.3-7.7) k/uL Lymphocytes # (1.0-4.8) k/uL PT (9.0-12.0) sec ABG pH (7.35-7.45) ABG pO2 335 H (83-108) mmHg ABG Total CO2 25 H (19-24) mmol/L ABG O2 Saturation 99.9 H (94-97) % ABG Hematocrit 27 L (34.0-46.0) % ABG Potassium (3.4-4.5) mmol/L Chloride (98-107) mmol/L Glucose (74-99) mg/dL POC Glucose (mg/dL) 134 H 131 H (75-99) mg/dL Calcium (8.4-10.2) mg/dL Alkaline Phosphatase (38-126) U/L Total Protein (6.3-8.2) g/dL Albumin (3.5-5.0) g/dL Arterial Blood Potassium (3.4-4.5) mmol/L Crossmatch 11/08/16 11/08/16 11/08/16 Range/Units 15:52 15:53 16:47 WBC (3.8-10.6) k/uL RBC (4.30-5.90) m/uL Hgb (13.0-17.5) gm/dL Hct (39.0-53.0) % Plt Count (150-450) k/uL Neutrophils # (1.3-7.7) k/uL Lymphocytes # (1.0-4.8) k/uL PT (9.0-12.0) sec ABG pH (7.35-7.45) ABG pO2 231 H (83-108) mmHg ABG Total CO2 (19-24) mmol/L ABG O2 Saturation 99.8 H (94-97) % ABG Hematocrit 23 L (34.0-46.0) % ABG Potassium (3.4-4.5) mmol/L Chloride (98-107) mmol/L Glucose (74-99) mg/dL POC Glucose (mg/dL) 126 H 117 H (75-99) mg/dL Calcium (8.4-10.2) mg/dL Alkaline Phosphatase (38-126) U/L Total Protein (6.3-8.2) g/dL Albumin (3.5-5.0) g/dL Arterial Blood Potassium (3.4-4.5) mmol/L Crossmatch 11/08/16 11/08/1611/08/17 Range/Units 16:47 17:30 17:30 WBC (3.8-10.6) k/uL RBC 2.91 L (4.30-5.90) m/uL Hgb 8.9 L D (13.0-17.5) gm/dL Hct 25.2 L (39.0-53.0) % Plt Count 129 L (150-450) k/uL Neutrophils # (1.3-7.7) k/uL Lymphocytes # (1.0-4.8) k/uL PT (9.0-12.0) sec ABG pH (7.35-7.45) ABG pO2 283 H (83-108) mmHg ABG Total CO2 (19-24) mmol/L ABG O2 Saturation 99.9 H (94-97) % ABG Hematocrit 23 L (34.0-46.0) % ABG Potassium (3.4-4.5) mmol/L Chloride 109 H (98-107) mmol/L Glucose 106 H (74-99) mg/dL POC Glucose (mg/dL) (75-99) mg/dL Calcium 7.5 L (8.4-10.2) mg/dL Alkaline Phosphatase 30 L (38-126) U/L Total Protein 5.0 L (6.3-8.2) g/dL Albumin 3.2 L (3.5-5.0) g/dL Arterial Blood Potassium (3.4-4.5) mmol/L Crossmatch 11/08/16 11/08/16 11/08/16 Range/Units 17:30 17:39 17:43 WBC (3.8-10.6) k/uL RBC (4.30-5.90) m/uL Hgb (13.0-17.5) gm/dL Hct (39.0-53.0) % Plt Count (150-450) k/uL Neutrophils # (1.3-7.7) k/uL Lymphocytes # (1.0-4.8) k/uL PT 12.3 H (9.0-12.0) sec ABG pH 7.32 L (7.35-7.45) ABG pO2 322 H (83-108) mmHg ABG Total CO2 (19-24) mmol/L ABG O2 Saturation 100.0 H (94-97) % ABG Hematocrit (34.0-46.0) % ABG Potassium (3.4-4.5) mmol/L Chloride (98-107) mmol/L Glucose (74-99) mg/dL POC Glucose (mg/dL) 116 H (75-99) mg/dL Calcium (8.4-10.2) mg/dL Alkaline Phosphatase (38-126) U/L Total Protein (6.3-8.2) g/dL Albumin (3.5-5.0) g/dL Arterial Blood Potassium (3.4-4.5) mmol/L Crossmatch 11/08/16 11/08/16 11/08/16 Range/Units 18:11 19:03 20:00 WBC (3.8-10.6) k/uL RBC 2.85 L (4.30-5.90) m/uL Hgb 8.7 L (13.0-17.5) gm/dL Hct 25.1 L (39.0-53.0) % Plt Count 134 L (150-450) k/uL Neutrophils # (1.3-7.7) k/uL Lymphocytes # (1.0-4.8) k/uL PT (9.0-12.0) sec ABG pH (7.35-7.45) ABG pO2 (83-108) mmHg ABG Total CO2 (19-24) mmol/L ABG O2 Saturation (94-97) % ABG Hematocrit (34.0-46.0) % ABG Potassium (3.4-4.5) mmol/L Chloride (98-107) mmol/L Glucose (74-99) mg/dL POC Glucose (mg/dL) 128 H 129 H (75-99) mg/dL Calcium (8.4-10.2) mg/dL Alkaline Phosphatase (38-126) U/L Total Protein (6.3-8.2) g/dL Albumin (3.5-5.0) g/dL Arterial Blood Potassium (3.4-4.5) mmol/L Crossmatch 11/08/16 11/08/16 11/08/16 Range/Units 20:05 21:01 22:15 WBC (3.8-10.6) k/uL RBC (4.30-5.90) m/uL Hgb (13.0-17.5) gm/dL Hct (39.0-53.0) % Plt Count (150-450) k/uL Neutrophils # (1.3-7.7) k/uL Lymphocytes # (1.0-4.8) k/uL PT (9.0-12.0) sec ABG pH (7.35-7.45) ABG pO2 (83-108) mmHg ABG Total CO2 (19-24) mmol/L ABG O2 Saturation (94-97) % ABG Hematocrit (34.0-46.0) % ABG Potassium (3.4-4.5) mmol/L Chloride (98-107) mmol/L Glucose (74-99) mg/dL POC Glucose (mg/dL) 137 H 138 H 157 H (75-99) mg/dL Calcium (8.4-10.2) mg/dL Alkaline Phosphatase (38-126) U/L Total Protein (6.3-8.2) g/dL Albumin (3.5-5.0) g/dL Arterial Blood Potassium (3.4-4.5) mmol/L Crossmatch 11/08/16 11/08/16 11/08/16 Range/Units 22:58 23:00 23:00 WBC (3.8-10.6) k/uL RBC 3.03 L (4.30-5.90) m/uL Hgb 9.0 L (13.0-17.5) gm/dL Hct 26.5 L (39.0-53.0) % Plt Count 129 L (150-450) k/uL Neutrophils # 8.4 H (1.3-7.7) k/uL Lymphocytes # 0.8 L (1.0-4.8) k/uL PT (9.0-12.0) sec ABG pH (7.35-7.45) ABG pO2 (83-108) mmHg ABG Total CO2 (19-24) mmol/L ABG O2 Saturation (94-97) % ABG Hematocrit (34.0-46.0) % ABG Potassium (3.4-4.5) mmol/L Chloride (98-107) mmol/L Glucose 129 H (74-99) mg/dL POC Glucose (mg/dL) 151 H (75-99) mg/dL Calcium 7.9 L (8.4-10.2) mg/dL Alkaline Phosphatase (38-126) U/L Total Protein (6.3-8.2) g/dL Albumin (3.5-5.0) g/dL Arterial Blood Potassium (3.4-4.5) mmol/L Crossmatch 11/08/16 11/09/16 11/09/16 Range/Units 23:39 00:14 01:20 WBC (3.8-10.6) k/uL RBC (4.30-5.90) m/uL Hgb (13.0-17.5) gm/dL Hct (39.0-53.0) % Plt Count (150-450) k/uL Neutrophils # (1.3-7.7) k/uL Lymphocytes # (1.0-4.8) k/uL PT (9.0-12.0) sec ABG pH (7.35-7.45) ABG pO2 (83-108) mmHg ABG Total CO2 (19-24) mmol/L ABG O2 Saturation 98.0 H (94-97) % ABG Hematocrit (34.0-46.0) % ABG Potassium (3.4-4.5) mmol/L Chloride (98-107) mmol/L Glucose (74-99) mg/dL POC Glucose (mg/dL) 141 H 138 H (75-99) mg/dL Calcium (8.4-10.2) mg/dL Alkaline Phosphatase (38-126) U/L Total Protein (6.3-8.2) g/dL Albumin (3.5-5.0) g/dL Arterial Blood Potassium (3.4-4.5) mmol/L Crossmatch 11/09/16 11/09/16 11/09/16 Range/Units 02:57 04:00 04:00 WBC 11.0 H (3.8-10.6) k/uL RBC 2.99 L (4.30-5.90) m/uL Hgb 8.9 L (13.0-17.5) gm/dL Hct 26.0 L (39.0-53.0) % Plt Count 137 L (150-450) k/uL Neutrophils # 9.7 H (1.3-7.7) k/uL Lymphocytes # 0.6 L (1.0-4.8) k/uL PT (9.0-12.0) sec ABG pH (7.35-7.45) ABG pO2 (83-108) mmHg ABG Total CO2 (19-24) mmol/L ABG O2 Saturation (94-97) % ABG Hematocrit (34.0-46.0) % ABG Potassium (3.4-4.5) mmol/L Chloride (98-107) mmol/L Glucose 121 H (74-99) mg/dL POC Glucose (mg/dL) 117 H (75-99) mg/dL Calcium 8.0 L (8.4-10.2) mg/dL Alkaline Phosphatase (38-126) U/L Total Protein 4.8 L (6.3-8.2) g/dL Albumin 3.1 L (3.5-5.0) g/dL Arterial Blood Potassium (3.4-4.5) mmol/L Crossmatch 11/09/16 11/09/16 11/09/16 Range/Units 04:06 06:38 07:54 WBC (3.8-10.6) k/uL RBC (4.30-5.90) m/uL Hgb (13.0-17.5) gm/dL Hct (39.0-53.0) % Plt Count (150-450) k/uL Neutrophils # (1.3-7.7) k/uL Lymphocytes # (1.0-4.8) k/uL PT (9.0-12.0) sec ABG pH (7.35-7.45) ABG pO2 (83-108) mmHg ABG Total CO2 (19-24) mmol/L ABG O2 Saturation (94-97) % ABG Hematocrit (34.0-46.0) % ABG Potassium (3.4-4.5) mmol/L Chloride (98-107) mmol/L Glucose (74-99) mg/dL POC Glucose (mg/dL) 151 H 134 H 128 H (75-99) mg/dL Calcium (8.4-10.2) mg/dL Alkaline Phosphatase (38-126) U/L Total Protein (6.3-8.2) g/dL Albumin (3.5-5.0) g/dL Arterial Blood Potassium (3.4-4.5) mmol/L Crossmatch 11/09/16 11/09/16 11/09/16 Range/Units 08:56 10:00 11:08 WBC (3.8-10.6) k/uL RBC (4.30-5.90) m/uL Hgb (13.0-17.5) gm/dL Hct (39.0-53.0) % Plt Count (150-450) k/uL Neutrophils # (1.3-7.7) k/uL Lymphocytes # (1.0-4.8) k/uL PT (9.0-12.0) sec ABG pH (7.35-7.45) ABG pO2 (83-108) mmHg ABG Total CO2 (19-24) mmol/L ABG O2 Saturation (94-97) % ABG Hematocrit (34.0-46.0) % ABG Potassium (3.4-4.5) mmol/L Chloride (98-107) mmol/L Glucose (74-99) mg/dL POC Glucose (mg/dL) 130 H 163 H 157 H (75-99) mg/dL Calcium (8.4-10.2) mg/dL Alkaline Phosphatase (38-126) U/L Total Protein (6.3-8.2) g/dL Albumin (3.5-5.0) g/dL Arterial Blood Potassium (3.4-4.5) mmol/L Crossmatch Assessment and Plan Plan: Impression: Status post CABG, postoperative day #1, patient was extubated uneventfully last night, remains off mechanical ventilation. 2 multiple comorbidities including hypertension, hyperlipidemia, history of atrial fibrillation, history of cardioversion, history of tobacco abuse, in remission, and history of nonischemic cardiomyopathy history of obesity. Recommendation: Continue incentive spirometry, bronchodilators, early ambulation, touch of diuresis, and we'll continue to monitor in the ICU today. Time with Patient: Less than 30
[2016-11-09 12:39] LABS: Glucose,Whole Blood 148 mg/dL (75-99)
[2016-11-09 13:20] LABS: Glucose,Whole Blood 136 mg/dL (75-99)
[2016-11-09 13:58] LABS: Glucose,Whole Blood 151 mg/dL (75-99)
[2016-11-09 15:58] LABS: Glucose,Whole Blood 148 mg/dL (75-99)
[2016-11-09] MEDS ORDERED: BISACODYL 10 MG SUPP RECTAL PRN (17:02)
[2016-11-09] MEDS ORDERED: MAGNESIUM HYDROXIDE 2,400 MG/10 ML CUP PO PRN (17:02)
--- NOTE | 2016-11-09 17:06 | P.CONS ---
History of Present Illness - Reason for Consult Consult date: 11/09/16 Medical management Requesting physician: Javan Jensen - History of Present Illness This is a 61-year-old male well-known to the practice with a history of paroxysmal atrial fibrillation, nonischemic cardiomyopathy, patient was successfully cardioverted about 6 wks ago. Stress test performed and was abnormal cardiac cath was performed on 11/02/2016 showed 65% distal left main disease with mild disease in the LAD circumflex and RCA. Hence the patient had off pump coronary artery bypass grafting 3 right internal mammary artery graft to the left anterior descending, left internal mammary graft to obtuse marginal jump graft with partial left internal mammary artery from the right internal mammary artery to the first diagonal modified Maze procedure with bilateral bilateral pulmonary vein ablation and ligation of the left atrial appendage with 14 mm atrophic care clinic postoperatively patient was sent to the ICU on mechanical ventilation and I was asked to see him on medical consultation Review of Systems Ears, nose, mouth and throat: Reports as per HPI Cardiovascular: Reports decreased exercise tolerance, Reports dyspnea on exertion, Reports high blood pressure, Reports irregular heart beat ( recent history) Respiratory: Reports as per HPI Gastrointestinal: Reports as per HPI Genitourinary: Reports as per HPI Musculoskeletal: Reports as per HPI Integumentary: Reports as per HPI Neurological: Reports as per HPI Psychiatric: Reports as per HPI Past Medical History Past Medical History: Atrial Fibrillation, Coronary Artery Disease (CAD), Heart Failure, Hyperlipidemia, Hypertension, Skin Disorder Additional Past Medical History / Comment(s): precancerous skin lesions History of Any Multi-Drug Resistant Organisms: None Reported Past Surgical History: Heart Catheterization Additional Past Surgical History / Comment(s): ramón cataracts, recent cardioversion-May Past Anesthesia/Blood Transfusion Reactions: No Reported Reaction Past Psychological History: No Psychological Hx Reported Smoking Status: Current every day smoker Past Alcohol Use History: Occasional Additional Past Alcohol Use History / Comment(s): down 5 cigs/day, smoker on & off for 40 yrs. Past Drug Use History: None Reported - Past Family History Father History Unknown: Yes Family Medical History: Cancer Mother Family Medical History: Coronary Artery Disease (CAD) Brother(s) Family Medical History: No Reported History Sister(s) Family Medical History: No Reported History Daughter(s) Family Medical History: No Reported History Son(s) Family Medical History: No Reported History Medications and Allergies Home Medications Medication Instructions Recorded Confirmed Type Aspirin EC [Ecotrin Low Dose] 81 mg PO DAILY 08/22/16 11/08/16 History Atorvastatin [Lipitor] 40 mg PO DAILY 08/22/16 11/08/16 History Losartan Potassium [Cozaar] 25 mg PO HS 09/14/16 11/08/16 History Metoprolol Succinate [Toprol XL] 50 mg PO DAILY 09/14/16 11/08/16 History Multivitamins, Thera [Multivitamin 1 tab PO DAILY 09/14/16 11/08/16 History (formulary)] Nicotine 21Mg/24Hr Patch [Habitrol 1 patch TRANSDERM DAILY 11/07/16 11/08/16 History 21Mg/24Hr Patch] Allergies Allergy/AdvReac Type Severity Reaction Status Date / Time No Known Allergies Allergy Verified 11/08/16 07:42 Physical Exam Osteopathic Statement: *. No significant issues noted on an osteopathic structural exam other than those noted in the History and Physical/Consult. Vitals: Vital Signs Temp Pulse Pulse Resp Pulse Ox 11/09/16 16:26 77 11/09/16 16:14 75 20 11/09/16 16:00 99.0 F 78 15 94 L 11/09/16 15:30 77 17 93 L 11/09/16 15:00 74 16 93 L 11/09/16 14:30 75 25 H 89 L 11/09/16 14:00 75 7 L 94 L 11/09/16 13:30 84 13 94 L 11/09/16 13:00 77 14 97 11/09/16 12:55 80 11/09/16 12:41 82 23 11/09/16 12:30 78 20 95 11/09/16 12:00 99.0 F 89 7 L 91 L 11/09/16 11:35 100 30 H 11/09/16 11:00 88 23 93 L 11/09/16 10:30 76 16 92 L 11/09/16 10:00 84 17 92 L 11/09/16 09:30 91 17 92 L 11/09/16 09:18 74 11/09/16 09:03 76 11/09/16 09:00 75 16 98 11/09/16 08:30 75 17 98 11/09/16 08:00 87 27 H 92 L 11/09/16 07:30 77 13 100 11/09/16 07:00 74 16 100 11/09/16 06:30 72 13 96 11/09/16 06:00 77 18 95 11/09/16 05:30 75 17 99 11/09/16 05:00 76 13 100 11/09/16 04:30 76 13 100 11/09/16 04:00 79 61 16 100 11/09/16 03:30 75 13 100 11/09/16 03:00 75 13 100 11/09/16 02:30 68 19 97 11/09/16 02:00 66 17 100 11/09/16 01:30 77 17 100 11/09/16 01:00 77 17 100 11/09/16 00:30 77 15 98 11/09/16 00:13 79 11/09/16 00:07 95 11/09/16 00:03 79 11/09/16 00:00 83 61 21 94 L 11/08/16 23:30 79 15 100 11/08/16 23:00 82 14 99 11/08/16 22:30 85 14 100 11/08/16 22:00 93 18 97 11/08/16 21:30 76 14 97 11/08/16 21:00 81 13 97 11/08/16 20:30 91 45 H 100 11/08/16 20:00 68 14 100 11/08/16 19:32 75 11/08/16 19:30 74 14 100 11/08/16 19:20 73 11/08/16 19:00 79 12 98 11/08/16 18:45 80 12 100 11/08/16 18:30 81 12 100 11/08/16 18:20 81 11 L 100 11/08/16 18:10 84 12 100 11/08/16 18:00 86 12 100 11/08/16 17:50 82 13 100 11/08/16 17:47 81 15 100 Intake and Output 11/09/16 11/09/16 11/09/16 06:59 14:59 22:59 Intake Total 962.700 970.938 60 Output Total 806 650 230 Balance 156.700 320.938 -170 Intake: IV 760 440 60 ACETAMINOPHEN IV (For NPO 200 100 ) 1,000 mg In Empty Bag 1 bag @ 400 mls/hr IVPB Q6HR TOM Rx#:[id number] CO/CI 60 10 Lactated Ringers 1,000 ml 400 230 60 @ 20 mls/hr IV .Q24H TOM Rx#:[id number] ceFAZolin 2 gm In Sodium 100 100 Chloride 0.9% 100 ml @ 100 mls/hr IVPB Q8H TOM Rx#:[id number] Intake, IV Titration 82.700 50.938 Amount Dexmedetomidine in 0.9 % 61.363 30.073 NaCl 400 mcg In Empty Bag 1 bag @ Titrate IV .Q0M TOM Rx#:[id number] Insulin Regular 100 unit 13.737 20.865 In Sodium Chloride 0.9% 100 ml @ Per Protocol IV .Q0M TOM Rx#:[id number] Nitroglycerin-D5w Pmx 50 7.6 mg In Dextrose/Water 1 250ml.bag @ 5 MCG/MIN 1.5 mls/hr IV .Q24H TOM Rx#: [id number] Oral 120 480 Output: Chest Tube Drainage 416 235 70 Chest Tube Left Pleural/ 340 210 50 Mediastinal Chest Tube Right Lateral 76 25 20 Chest Urine 390 415 160 Other: Voiding Method Indwelling Catheter Indwelling Catheter Indwelling Catheter # Bowel Movements 0 0 0 Weight 104.6 kg 104.6 kg 104.6 kg Patient Weight 08/ 06:59 Weight 104.6 kg ABP, PAP, CO, CI - Last 8 Hours Arterial Blood Pressure 113/51 Arterial Blood Pressure 112/43 Arterial Blood Pressure 111/46 Arterial Blood Pressure 116/50 Arterial Blood Pressure 128/49 Arterial Blood Pressure 119/53 Arterial Blood Pressure 125/54 Arterial Blood Pressure 127/50 Arterial Blood Pressure 126/51 Arterial Blood Pressure 141/51 Arterial Blood Pressure 112/43 Arterial Blood Pressure 117/49 Arterial Blood Pressure 105/45 General: [Patient awake, alert and oriented times 3. Patient in no acute distress.] HEENT: [PERRL. EOMI. No pharyngeal erythema or exudate.] Neck: [No adenopathy.] Cardiac: [Heart regular in rate and rhythm. No S3. No S4. No clicks, rubs. No murmur.] Midline surgical incision site with bilateral chest tubes Lungs: [Clear to auscultation bilaterally.] Abdomen: [No mass. No organomegaly. Bowel sounds presnt and normoactive in all 4 quadrants.] Extremes: [No edema no cyanosis no claudication normal pulses] : [] Musculoskeletal: [No joint erythema, edema or tenderness.] Skin: [No rash.] Neurologic: [No lateralizing deficits. CN II - XII grossly intact.] Lymphatic: [No adenopathy.] Results CBC & Chem 7: 11/09/16 04:00 11/09/16 04:00 Labs: Abnormal Lab Results - Last 24 Hours (Table) 11/07/16 11/08/16 11/08/16 Range/Units 14:16 10:49 14:20 WBC (3.8-10.6) k/uL RBC (4.30-5.90) m/uL Hgb (13.0-17.5) gm/dL Hct (39.0-53.0) % Plt Count (150-450) k/uL Neutrophils # (1.3-7.7) k/uL Lymphocytes # (1.0-4.8) k/uL PT (9.0-12.0) sec ABG pH (7.35-7.45) ABG pO2 204 H 267 H (83-108) mmHg ABG Total CO2 25 H 25 H (19-24) mmol/L ABG O2 Saturation 99.7 H 99.9 H (94-97) % ABG Hematocrit 28 L (34.0-46.0) % ABG Potassium 4.9 H (3.4-4.5) mmol/L Chloride (98-107) mmol/L Glucose (74-99) mg/dL POC Glucose (mg/dL) (75-99) mg/dL Calcium (8.4-10.2) mg/dL Alkaline Phosphatase (38-126) U/L Total Protein (6.3-8.2) g/dL Albumin (3.5-5.0) g/dL Arterial Blood Potassium 4.9 H (3.4-4.5) mmol/L Crossmatch See Detail 11/08/16 11/08/16 11/08/16 Range/Units 14:55 15:52 16:47 WBC (3.8-10.6) k/uL RBC (4.30-5.90) m/uL Hgb (13.0-17.5) gm/dL Hct (39.0-53.0) % Plt Count (150-450) k/uL Neutrophils # (1.3-7.7) k/uL Lymphocytes # (1.0-4.8) k/uL PT (9.0-12.0) sec ABG pH (7.35-7.45) ABG pO2 335 H 231 H (83-108) mmHg ABG Total CO2 25 H (19-24) mmol/L ABG O2 Saturation 99.9 H 99.8 H (94-97) % ABG Hematocrit 27 L 23 L (34.0-46.0) % ABG Potassium (3.4-4.5) mmol/L Chloride (98-107) mmol/L Glucose (74-99) mg/dL POC Glucose (mg/dL) 117 H (75-99) mg/dL Calcium (8.4-10.2) mg/dL Alkaline Phosphatase (38-126) U/L Total Protein (6.3-8.2) g/dL Albumin (3.5-5.0) g/dL Arterial Blood Potassium (3.4-4.5) mmol/L Crossmatch 11/08/16 11/08/16 11/08/16 Range/Units 16:47 17:30 17:30 WBC (3.8-10.6) k/uL RBC 2.91 L (4.30-5.90) m/uL Hgb 8.9 L D (13.0-17.5) gm/dL Hct 25.2 L (39.0-53.0) % Plt Count 129 L (150-450) k/uL Neutrophils # (1.3-7.7) k/uL Lymphocytes # (1.0-4.8) k/uL PT (9.0-12.0) sec ABG pH (7.35-7.45) ABG pO2 283 H (83-108) mmHg ABG Total CO2 (19-24) mmol/L ABG O2 Saturation 99.9 H (94-97) % ABG Hematocrit 23 L (34.0-46.0) % ABG Potassium (3.4-4.5) mmol/L Chloride 109 H (98-107) mmol/L Glucose 106 H (74-99) mg/dL POC Glucose (mg/dL) (75-99) mg/dL Calcium 7.5 L (8.4-10.2) mg/dL Alkaline Phosphatase 30 L (38-126) U/L Total Protein 5.0 L (6.3-8.2) g/dL Albumin 3.2 L (3.5-5.0) g/dL Arterial Blood Potassium (3.4-4.5) mmol/L Crossmatch 11/08/16 11/08/16 11/08/16 Range/Units 17:30 17:39 17:43 WBC (3.8-10.6) k/uL RBC (4.30-5.90) m/uL Hgb (13.0-17.5) gm/dL Hct (39.0-53.0) % Plt Count (150-450) k/uL Neutrophils # (1.3-7.7) k/uL Lymphocytes # (1.0-4.8) k/uL PT 12.3 H (9.0-12.0) sec ABG pH 7.32 L (7.35-7.45) ABG pO2 322 H (83-108) mmHg ABG Total CO2 (19-24) mmol/L ABG O2 Saturation 100.0 H (94-97) % ABG Hematocrit (34.0-46.0) % ABG Potassium (3.4-4.5) mmol/L Chloride (98-107) mmol/L Glucose (74-99) mg/dL POC Glucose (mg/dL) 116 H (75-99) mg/dL Calcium (8.4-10.2) mg/dL Alkaline Phosphatase (38-126) U/L Total Protein (6.3-8.2) g/dL Albumin (3.5-5.0) g/dL Arterial Blood Potassium (3.4-4.5) mmol/L Crossmatch 11/08/16 11/08/16 11/08/16 Range/Units 18:11 19:03 20:00 WBC (3.8-10.6) k/uL RBC 2.85 L (4.30-5.90) m/uL Hgb 8.7 L (13.0-17.5) gm/dL Hct 25.1 L (39.0-53.0) % Plt Count 134 L (150-450) k/uL Neutrophils # (1.3-7.7) k/uL Lymphocytes # (1.0-4.8) k/uL PT (9.0-12.0) sec ABG pH (7.35-7.45) ABG pO2 (83-108) mmHg ABG Total CO2 (19-24) mmol/L ABG O2 Saturation (94-97) % ABG Hematocrit (34.0-46.0) % ABG Potassium (3.4-4.5) mmol/L Chloride (98-107) mmol/L Glucose (74-99) mg/dL POC Glucose (mg/dL) 128 H 129 H (75-99) mg/dL Calcium (8.4-10.2) mg/dL Alkaline Phosphatase (38-126) U/L Total Protein (6.3-8.2) g/dL Albumin (3.5-5.0) g/dL Arterial Blood Potassium (3.4-4.5) mmol/L Crossmatch 11/08/16 11/08/16 11/08/16 Range/Units 20:05 21:01 22:15 WBC (3.8-10.6) k/uL RBC (4.30-5.90) m/uL Hgb (13.0-17.5) gm/dL Hct (39.0-53.0) % Plt Count (150-450) k/uL Neutrophils # (1.3-7.7) k/uL Lymphocytes # (1.0-4.8) k/uL PT (9.0-12.0) sec ABG pH (7.35-7.45) ABG pO2 (83-108) mmHg ABG Total CO2 (19-24) mmol/L ABG O2 Saturation (94-97) % ABG Hematocrit (34.0-46.0) % ABG Potassium (3.4-4.5) mmol/L Chloride (98-107) mmol/L Glucose (74-99) mg/dL POC Glucose (mg/dL) 137 H 138 H 157 H (75-99) mg/dL Calcium (8.4-10.2) mg/dL Alkaline Phosphatase (38-126) U/L Total Protein (6.3-8.2) g/dL Albumin (3.5-5.0) g/dL Arterial Blood Potassium (3.4-4.5) mmol/L Crossmatch 11/08/16 11/08/16 11/08/16 Range/Units 22:58 23:00 23:00 WBC (3.8-10.6) k/uL RBC 3.03 L (4.30-5.90) m/uL Hgb 9.0 L (13.0-17.5) gm/dL Hct 26.5 L (39.0-53.0) % Plt Count 129 L (150-450) k/uL Neutrophils # 8.4 H (1.3-7.7) k/uL Lymphocytes # 0.8 L (1.0-4.8) k/uL PT (9.0-12.0) sec ABG pH (7.35-7.45) ABG pO2 (83-108) mmHg ABG Total CO2 (19-24) mmol/L ABG O2 Saturation (94-97) % ABG Hematocrit (34.0-46.0) % ABG Potassium (3.4-4.5) mmol/L Chloride (98-107) mmol/L Glucose 129 H (74-99) mg/dL POC Glucose (mg/dL) 151 H (75-99) mg/dL Calcium 7.9 L (8.4-10.2) mg/dL Alkaline Phosphatase (38-126) U/L Total Protein (6.3-8.2) g/dL Albumin (3.5-5.0) g/dL Arterial Blood Potassium (3.4-4.5) mmol/L Crossmatch 11/08/16 11/09/16 11/09/16 Range/Units 23:39 00:14 01:20 WBC (3.8-10.6) k/uL RBC (4.30-5.90) m/uL Hgb (13.0-17.5) gm/dL Hct (39.0-53.0) % Plt Count (150-450) k/uL Neutrophils # (1.3-7.7) k/uL Lymphocytes # (1.0-4.8) k/uL PT (9.0-12.0) sec ABG pH (7.35-7.45) ABG pO2 (83-108) mmHg ABG Total CO2 (19-24) mmol/L ABG O2 Saturation 98.0 H (94-97) % ABG Hematocrit (34.0-46.0) % ABG Potassium (3.4-4.5) mmol/L Chloride (98-107) mmol/L Glucose (74-99) mg/dL POC Glucose (mg/dL) 141 H 138 H (75-99) mg/dL Calcium (8.4-10.2) mg/dL Alkaline Phosphatase (38-126) U/L Total Protein (6.3-8.2) g/dL Albumin (3.5-5.0) g/dL Arterial Blood Potassium (3.4-4.5) mmol/L Crossmatch 11/09/16 11/09/16 11/09/16 Range/Units 02:57 04:00 04:00 WBC 11.0 H (3.8-10.6) k/uL RBC 2.99 L (4.30-5.90) m/uL Hgb 8.9 L (13.0-17.5) gm/dL Hct 26.0 L (39.0-53.0) % Plt Count 137 L (150-450) k/uL Neutrophils # 9.7 H (1.3-7.7) k/uL Lymphocytes # 0.6 L (1.0-4.8) k/uL PT (9.0-12.0) sec ABG pH (7.35-7.45) ABG pO2 (83-108) mmHg ABG Total CO2 (19-24) mmol/L ABG O2 Saturation (94-97) % ABG Hematocrit (34.0-46.0) % ABG Potassium (3.4-4.5) mmol/L Chloride (98-107) mmol/L Glucose 121 H (74-99) mg/dL POC Glucose (mg/dL) 117 H (75-99) mg/dL Calcium 8.0 L (8.4-10.2) mg/dL Alkaline Phosphatase (38-126) U/L Total Protein 4.8 L (6.3-8.2) g/dL Albumin 3.1 L (3.5-5.0) g/dL Arterial Blood Potassium (3.4-4.5) mmol/L Crossmatch 11/09/16 11/09/16 11/09/16 Range/Units 04:06 06:38 07:54 WBC (3.8-10.6) k/uL RBC (4.30-5.90) m/uL Hgb (13.0-17.5) gm/dL Hct (39.0-53.0) % Plt Count (150-450) k/uL Neutrophils # (1.3-7.7) k/uL Lymphocytes # (1.0-4.8) k/uL PT (9.0-12.0) sec ABG pH (7.35-7.45) ABG pO2 (83-108) mmHg ABG Total CO2 (19-24) mmol/L ABG O2 Saturation (94-97) % ABG Hematocrit (34.0-46.0) % ABG Potassium (3.4-4.5) mmol/L Chloride (98-107) mmol/L Glucose (74-99) mg/dL POC Glucose (mg/dL) 151 H 134 H 128 H (75-99) mg/dL Calcium (8.4-10.2) mg/dL Alkaline Phosphatase (38-126) U/L Total Protein (6.3-8.2) g/dL Albumin (3.5-5.0) g/dL Arterial Blood Potassium (3.4-4.5) mmol/L Crossmatch 11/09/16 11/09/16 11/09/16 Range/Units 08:56 10:00 11:08 WBC (3.8-10.6) k/uL RBC (4.30-5.90) m/uL Hgb (13.0-17.5) gm/dL Hct (39.0-53.0) % Plt Count (150-450) k/uL Neutrophils # (1.3-7.7) k/uL Lymphocytes # (1.0-4.8) k/uL PT (9.0-12.0) sec ABG pH (7.35-7.45) ABG pO2 (83-108) mmHg ABG Total CO2 (19-24) mmol/L ABG O2 Saturation (94-97) % ABG Hematocrit (34.0-46.0) % ABG Potassium (3.4-4.5) mmol/L Chloride (98-107) mmol/L Glucose (74-99) mg/dL POC Glucose (mg/dL) 130 H 163 H 157 H (75-99) mg/dL Calcium (8.4-10.2) mg/dL Alkaline Phosphatase (38-126) U/L Total Protein (6.3-8.2) g/dL Albumin (3.5-5.0) g/dL Arterial Blood Potassium (3.4-4.5) mmol/L Crossmatch 11/09/16 11/09/16 11/09/16 Range/Units 12:37 13:17 13:56 WBC (3.8-10.6) k/uL RBC (4.30-5.90) m/uL Hgb (13.0-17.5) gm/dL Hct (39.0-53.0) % Plt Count (150-450) k/uL Neutrophils # (1.3-7.7) k/uL Lymphocytes # (1.0-4.8) k/uL PT (9.0-12.0) sec ABG pH (7.35-7.45) ABG pO2 (83-108) mmHg ABG Total CO2 (19-24) mmol/L ABG O2 Saturation (94-97) % ABG Hematocrit (34.0-46.0) % ABG Potassium (3.4-4.5) mmol/L Chloride (98-107) mmol/L Glucose (74-99) mg/dL POC Glucose (mg/dL) 148 H 136 H 151 H (75-99) mg/dL Calcium (8.4-10.2) mg/dL Alkaline Phosphatase (38-126) U/L Total Protein (6.3-8.2) g/dL Albumin (3.5-5.0) g/dL Arterial Blood Potassium (3.4-4.5) mmol/L Crossmatch 11/09/16 Range/Units 15:57 WBC (3.8-10.6) k/uL RBC (4.30-5.90) m/uL Hgb (13.0-17.5) gm/dL Hct (39.0-53.0) % Plt Count (150-450) k/uL Neutrophils # (1.3-7.7) k/uL Lymphocytes # (1.0-4.8) k/uL PT (9.0-12.0) sec ABG pH (7.35-7.45) ABG pO2 (83-108) mmHg ABG Total CO2 (19-24) mmol/L ABG O2 Saturation (94-97) % ABG Hematocrit (34.0-46.0) % ABG Potassium (3.4-4.5) mmol/L Chloride (98-107) mmol/L Glucose (74-99) mg/dL POC Glucose (mg/dL) 148 H (75-99) mg/dL Calcium (8.4-10.2) mg/dL Alkaline Phosphatase (38-126) U/L Total Protein (6.3-8.2) g/dL Albumin (3.5-5.0) g/dL Arterial Blood Potassium (3.4-4.5) mmol/L Crossmatch Chest x-ray: report reviewed Assessment and Plan Plan: Assessment and plan: Status post CABG 3 vessels patient is presently extubated and doing well Multiple cardiac comorbidities include hypertension and hyperlipidemia A. fib history of cardioversion successful, history of tobacco abuse in remission, and history of nonischemic cardiomyopathy, history of obesity, Patient's chest tubes and excessive IVs are being pulled judiciously Hanna will probably come out tomorrow we'll continue to follow this patient closely Time with Patient: Greater than 30
[2016-11-09] MEDS: HYDROcodone/APAP 5-325MG 1 EACH TAB PO PRN (17:47)
[2016-11-09 17:58] LABS: Glucose,Whole Blood 117 mg/dL (75-99)
[2016-11-09] MEDS: CLEVIDIPINE BUTYRATE 25 MG in EMPTY BAG 1 BAG IV SCH (19:10)
[2016-11-09 20:12] LABS: Glucose,Whole Blood 181 mg/dL (75-99)
[2016-11-09] MEDS: METOPROLOL TARTRATE 25 MG TAB PO SCH (20:14)
[2016-11-09] MEDS: SENNOSIDES-DOCUSATE SODIUM 1 EACH TAB PO SCH (20:14)
[2016-11-09 22:01] LABS: Glucose,Whole Blood 148 mg/dL (75-99)
[2016-11-09 23:59] LABS: Glucose,Whole Blood 146 mg/dL (75-99)
[2016-11-10] MEDS: HEPARIN SODIUM,PORCINE 5,000 UNIT/ML 1 ML VIAL SQ SCH ×4 (00:01→22:56)
[2016-11-10] MEDS: LACTATED RINGERS 1,000 ML IV SCH ×2 (00:02→05:40)
[2016-11-10 01:57] LABS: Glucose,Whole Blood 126 mg/dL (75-99)
[2016-11-10] MEDS: HYDROcodone/APAP 5-325MG 1 EACH TAB PO PRN ×4 (03:37→22:51)
[2016-11-10 04:08] LABS: Glucose,Whole Blood 115 mg/dL (75-99)
[2016-11-10 05:00] LABS: Ionized Calcium 4.8 mg/dL (4.5-5.3)
[2016-11-10 05:01] LABS: Basophils % (A) 0 %; CH 30.3; CHCM 35.3; Eosinophils # (A) 0.1 k/uL (0-0.7); Eosinophils % (A) 1 %; HCT 24.3 % (39.0-53.0); HGB 8.7 gm/dL (13.0-17.5); INR 1.3 (<1.1); Luc # (Auto) 0.18; Luc % (Auto) 1; Lymphocytes # (A) 1.5 k/uL (1.0-4.8); Lymphocytes % (A) 11 %; MCH 30.9 pg (25.0-35.0); MCHC 35.9 g/dL (31.0-37.0); MCV 86.1 fL (80.0-100.0); Mean Platelet Volume 8.1; Monocytes # (A) 0.7 k/uL (0-1.0); Monocytes % (A) 5 %; Neutrophils # (A) 10.7 k/uL (1.3-7.7); Neutrophils % (A) 81 %; Prothrombin Time 12.5 sec (9.0-12.0); RBC 2.82 m/uL (4.30-5.90); RDW 13.2 % (11.5-15.5); WBC 13.2 k/uL (3.8-10.6); WBC (Perox) 12.81
[2016-11-10 05:09] LABS: ALT 28 U/L (21-72); AST 34 U/L (17-59); Alkaline Phosphatase 51 U/L (38-126); Anion Gap 7 mmol/L; Blood Urea Nitrogen 12 mg/dL (9-20); Calcium 8.3 mg/dL (8.4-10.2); Carbon Dioxide 25 mmol/L (22-30); Chloride 100 mmol/L (98-107); Glucose 136 mg/dL (74-99); Magnesium 1.9 mg/dL (1.6-2.3); Non-African American GFR(MDRD) >60 (>60 ml/min/1.73 sqM); Phosphorous 2.3 mg/dL (2.5-4.5); Potassium 4.1 mmol/L (3.5-5.1); Sodium 132 mmol/L (137-145); Total Bilirubin 0.8 mg/dL (0.2-1.3); Total Protein 5.1 g/dL (6.3-8.2)
[2016-11-10 05:47] LABS: Glucose,Whole Blood 147 mg/dL (75-99)
[2016-11-10] MEDS ORDERED: SODIUM PHOSPHATE 10 MMOL in SODIUM CHLORIDE 0.9% 100 ML IVPB ONE (06:39)
[2016-11-10] MEDS: MAGNESIUM SULFATE-D5W PMX 1 GM in DEXTROSE/WATER 1 100ML.BAG IVPB SCH ×2 (07:14→08:09)
--- NOTE | 2016-11-10 07:16 | XR ---
EXAMINATION TYPE: XR chest 1V DATE OF EXAM: 11/10/2016 COMPARISON: 11/09/2016 HISTORY: 61-year-old male ventilator management TECHNIQUE: Single frontal view of the chest is obtained. FINDINGS: Median sternotomy wires are present. The heart remains mildly enlarged. Lung volumes slightly low wit h patchy retrocardiac and left basilar opacity and thickened bands of opacity at the right base, incr eased from prior. Thickening of the minor fissure persists. Mild interstitial prominence remains. Bilateral pleural drains are present without appreciable pneumothorax. Right IJ sheath remains in waqas ce. IMPRESSION: 1. Continued cardiomegaly and possible mild pulmonary vascular congestion. 2. Increasing bibasilar atelectasis and/or infiltrates. Suspect trace effusions.
[2016-11-10] MEDS: IPRATROPIUM-ALBUTEROL 3 ML NEB INHALATION PRN ×4 (07:46→19:39)
[2016-11-10] MEDS: ASPIRIN 325 MG TAB PO SCH (08:09)
[2016-11-10] MEDS: CLOPIDOGREL 75 MG TAB PO SCH (08:09)
[2016-11-10] MEDS: METOPROLOL TARTRATE 25 MG TAB PO SCH (08:10)
[2016-11-10] MEDS: PANTOPRAZOLE 40 MG TABLET PO SCH (08:10)
[2016-11-10] MEDS: ATORVASTATIN 40 MG TAB PO SCH (08:10)
[2016-11-10] MEDS: INSULIN LISPRO (humaLOG) 300 UNIT/3 ML VIAL SQ SCH ×5 (08:11→21:23)
[2016-11-10] MEDS: INSULN ASP PRT/INSULIN ASPART 100 UNIT/ML 10 ML VIAL SQ SCH (08:14)
[2016-11-10] MEDS ORDERED: METOPROLOL TARTRATE 25 MG TAB PO STA (08:55)
[2016-11-10] MEDS: NICOTINE 21MG/24HR PATCH TRANSDERM SCH (09:14)
--- NOTE | 2016-11-10 09:16 | P.PN ---
<Maryjane Raya - Last Filed: 11/10/16 09:09> Subjective Principal diagnosis: Coronary artery disease. Paroxysmal atrial fibrillation. POD #2 off-pump coronary artery bypass grafting 3 with right internal mammary artery graft to LAD, left internal mammary artery graft to obtuse marginal, jump graft with portion of left internal mammary artery from right internal mammary artery to first diagonal, modified Lau maze procedure with bilateral pulmonary vein ablation and ligation of left atrial appendage with a 40 mm AtriCure clip. The patient's currently sitting up in a recliner in no acute distress. States his pain is controlled. During very well, hoping to have all tubes discontinued , transfer out of the ICU. Objective - Vital Signs Vital signs: Vital Signs Temp 97.8 F 11/10/16 04:00 Pulse 96 11/10/16 08:00 Resp 23 11/10/16 08:00 BP 126/59 11/08/16 07:45 Pulse Ox 96 11/10/16 08:00 Intake & Output 11/09/16 11/10/16 11/10/16 18:59 06:59 18:59 Intake Total 1410.938 611.362 598.13 Output Total 1000 1255 105 Balance 410.938 -643.638 493.13 Weight 104.6 kg 103.3 kg Intake: IV 520 460 350 ACETAMINOPHEN IV (For NPO 100 ) 1,000 mg In Empty Bag 1 bag @ 400 mls/hr IVPB Q6HR [facility] Rx#:[id number] CO/CI 10 Lactated Ringers 1,000 ml 310 460 50 @ 20 mls/hr IV .Q24H [facility] Rx#:[id number] Magnesium Sulfate-D5w Pmx 200 1 gm In Dextrose/Water 1 100ml.bag @ 100 mls/hr IVPB Q1H [facility] Rx#: [id number] Sodium Phosphate 10 mmol 100 In Sodium Chloride 0.9% 100 ml @ 50 mls/hr IVPB ONCE ONE Rx#:[id number] ceFAZolin 2 gm In Sodium 100 Chloride 0.9% 100 ml @ 100 mls/hr IVPB Q8H [facility] Rx#:[id number] Intake, IV Titration 50.938 51.362 8.13 Amount Dexmedetomidine in 0.9 % 30.073 NaCl 400 mcg In Empty Bag 1 bag @ Titrate IV .Q0M [facility] Rx#:[id number] Insulin Regular 100 unit 20.865 51.362 8.13 In Sodium Chloride 0.9% 100 ml @ Per Protocol IV .Q0M [facility] Rx#:[id number] Oral 840 100 240 Output: Chest Tube Drainage 365 280 10 Chest Tube Left Pleural/ 320 170 10 Mediastinal Chest Tube Right Lateral 45 110 0 Chest Urine 635 975 95 Other: Voiding Method Indwelling Catheter Indwelling Catheter Indwelling Catheter # Bowel Movements 0 0 ABP, PAP, CO, CI - Last Documented Arterial Blood Pressure 166/68 Pulmonary Artery Pressure 24/13 Cardiac Output 6.8 Cardiac Index 3.0 - Constitutional General appearance: Present: cooperative, no acute distress - Respiratory Details: Lungs sounds diminished bilaterally. Respirations even, nonlabored. Currently on room air with oxygen saturation 93%. Able to achieve 750 mL on his incentive spirometry. Mediastinal chest tube to -20 cm wall suction, 80 mL serosanguineous drainage overnight, 500 mL last 24 hours. Right pleural chest tube to -20 cm wall suction, 80 mL drainage overnight, 200 mL last 24 hours. No air leaks present. - Cardiovascular Details: S1, S2 present. Regular rate and rhythm, normal sinus rhythm on telemetry. Chest stable. Heart hugger in place with patient demonstrating appropriate use. No edema present. Teds/SCDs present. - Gastrointestinal Gastrointestinal Comment(s): Abdomen soft, nontender, nondistended. Active bowel sounds 4 quadrants. Positive flatus. Tolerating diet. - Genitourinary Genitourinary Comment(s): Hanna present draining clear, yellow urine. Output 40-125 mL per hour overnight. - Integumentary Integumentary Comment(s): Anterior chest incision well approximated covered with dry intact dressing. - Musculoskeletal Musculoskeletal: Present: gait normal, strength equal bilaterally - Psychiatric Psychiatric: Present: A&O x's 3, appropriate affect, intact judgment & insight - Allied health notes Allied health notes reviewed: nursing - Labs CBC & Chem 7: 11/10/16 04:47 11/10/16 04:47 Labs: Abnormal Lab Results - Last 24 Hours (Table) 11/08/16 11/08/16 11/08/16 Range/Units 10:49 14:20 14:55 WBC (3.8-10.6) k/uL RBC (4.30-5.90) m/uL Hgb (13.0-17.5) gm/dL Hct (39.0-53.0) % Neutrophils # (1.3-7.7) k/uL PT (9.0-12.0) sec ABG pO2 204 H 267 H 335 H (83-108) mmHg ABG Total CO2 25 H 25 H 25 H (19-24) mmol/L ABG O2 Saturation 99.7 H 99.9 H 99.9 H (94-97) % ABG Hematocrit 28 L 27 L (34.0-46.0) % ABG Potassium 4.9 H (3.4-4.5) mmol/L Sodium (137-145) mmol/L Glucose (74-99) mg/dL POC Glucose (mg/dL) (75-99) mg/dL Calcium (8.4-10.2) mg/dL Phosphorus (2.5-4.5) mg/dL Total Protein (6.3-8.2) g/dL Albumin (3.5-5.0) g/dL Arterial Blood Potassium 4.9 H (3.4-4.5) mmol/L 11/08/16 11/08/16 11/09/16 Range/Units 15:52 16:47 10:00 WBC (3.8-10.6) k/uL RBC (4.30-5.90) m/uL Hgb (13.0-17.5) gm/dL Hct (39.0-53.0) % Neutrophils # (1.3-7.7) k/uL PT (9.0-12.0) sec ABG pO2 231 H 283 H (83-108) mmHg ABG Total CO2 (19-24) mmol/L ABG O2 Saturation 99.8 H 99.9 H (94-97) % ABG Hematocrit 23 L 23 L (34.0-46.0) % ABG Potassium (3.4-4.5) mmol/L Sodium (137-145) mmol/L Glucose (74-99) mg/dL POC Glucose (mg/dL) 163 H (75-99) mg/dL Calcium (8.4-10.2) mg/dL Phosphorus (2.5-4.5) mg/dL Total Protein (6.3-8.2) g/dL Albumin (3.5-5.0) g/dL Arterial Blood Potassium (3.4-4.5) mmol/L 11/09/16 11/09/16 11/09/16 Range/Units 11:08 12:37 13:17 WBC (3.8-10.6) k/uL RBC (4.30-5.90) m/uL Hgb (13.0-17.5) gm/dL Hct (39.0-53.0) % Neutrophils # (1.3-7.7) k/uL PT (9.0-12.0) sec ABG pO2 (83-108) mmHg ABG Total CO2 (19-24) mmol/L ABG O2 Saturation (94-97) % ABG Hematocrit (34.0-46.0) % ABG Potassium (3.4-4.5) mmol/L Sodium (137-145) mmol/L Glucose (74-99) mg/dL POC Glucose (mg/dL) 157 H 148 H 136 H (75-99) mg/dL Calcium (8.4-10.2) mg/dL Phosphorus (2.5-4.5) mg/dL Total Protein (6.3-8.2) g/dL Albumin (3.5-5.0) g/dL Arterial Blood Potassium (3.4-4.5) mmol/L 11/09/16 11/09/16 11/09/16 Range/Units 13:56 15:57 17:56 WBC (3.8-10.6) k/uL RBC (4.30-5.90) m/uL Hgb (13.0-17.5) gm/dL Hct (39.0-53.0) % Neutrophils # (1.3-7.7) k/uL PT (9.0-12.0) sec ABG pO2 (83-108) mmHg ABG Total CO2 (19-24) mmol/L ABG O2 Saturation (94-97) % ABG Hematocrit (34.0-46.0) % ABG Potassium (3.4-4.5) mmol/L Sodium (137-145) mmol/L Glucose (74-99) mg/dL POC Glucose (mg/dL) 151 H 148 H 117 H (75-99) mg/dL Calcium (8.4-10.2) mg/dL Phosphorus (2.5-4.5) mg/dL Total Protein (6.3-8.2) g/dL Albumin (3.5-5.0) g/dL Arterial Blood Potassium (3.4-4.5) mmol/L 11/09/16 11/09/16 11/09/16 Range/Units 20:09 21:59 23:57 WBC (3.8-10.6) k/uL RBC (4.30-5.90) m/uL Hgb (13.0-17.5) gm/dL Hct (39.0-53.0) % Neutrophils # (1.3-7.7) k/uL PT (9.0-12.0) sec ABG pO2 (83-108) mmHg ABG Total CO2 (19-24) mmol/L ABG O2 Saturation (94-97) % ABG Hematocrit (34.0-46.0) % ABG Potassium (3.4-4.5) mmol/L Sodium (137-145) mmol/L Glucose (74-99) mg/dL POC Glucose (mg/dL) 181 H 148 H 146 H (75-99) mg/dL Calcium (8.4-10.2) mg/dL Phosphorus (2.5-4.5) mg/dL Total Protein (6.3-8.2) g/dL Albumin (3.5-5.0) g/dL Arterial Blood Potassium (3.4-4.5) mmol/L 11/10/16 11/10/16 11/10/16 Range/Units 01:55 04:06 04:47 WBC (3.8-10.6) k/uL RBC (4.30-5.90) m/uL Hgb (13.0-17.5) gm/dL Hct (39.0-53.0) % Neutrophils # (1.3-7.7) k/uL PT (9.0-12.0) sec ABG pO2 (83-108) mmHg ABG Total CO2 (19-24) mmol/L ABG O2 Saturation (94-97) % ABG Hematocrit (34.0-46.0) % ABG Potassium (3.4-4.5) mmol/L Sodium 132 L (137-145) mmol/L Glucose 136 H (74-99) mg/dL POC Glucose (mg/dL) 126 H 115 H (75-99) mg/dL Calcium 8.3 L (8.4-10.2) mg/dL Phosphorus 2.3 L (2.5-4.5) mg/dL Total Protein 5.1 L (6.3-8.2) g/dL Albumin 3.1 L (3.5-5.0) g/dL Arterial Blood Potassium (3.4-4.5) mmol/L 11/10/16 11/10/16 11/10/16 Range/Units 04:47 04:47 05:44 WBC 13.2 H (3.8-10.6) k/uL RBC 2.82 L (4.30-5.90) m/uL Hgb 8.7 L (13.0-17.5) gm/dL Hct 24.3 L (39.0-53.0) % Neutrophils # 10.7 H (1.3-7.7) k/uL PT 12.5 H (9.0-12.0) sec ABG pO2 (83-108) mmHg ABG Total CO2 (19-24) mmol/L ABG O2 Saturation (94-97) % ABG Hematocrit (34.0-46.0) % ABG Potassium (3.4-4.5) mmol/L Sodium (137-145) mmol/L Glucose (74-99) mg/dL POC Glucose (mg/dL) 147 H (75-99) mg/dL Calcium (8.4-10.2) mg/dL Phosphorus (2.5-4.5) mg/dL Total Protein (6.3-8.2) g/dL Albumin (3.5-5.0) g/dL Arterial Blood Potassium (3.4-4.5) mmol/L - Imaging and Cardiology Chest x-ray: report reviewed, image reviewed Assessment and Plan (1) History of atrial fibrillation Status: Acute (2) History of cardioversion Status: Acute (3) Hyperlipidemia Status: Acute (4) Tobacco abuse, in remission Status: Acute (5) Nonischemic cardiomyopathy Status: Acute (6) Obesity (BMI 30.0-34.9) Status: Acute (7) Hypertension Status: Acute Plan: 1. Continue aspirin, statin, Plavix, heparin, Lopressor. Will increase Lopressor to 50 mg by mouth twice a day, will maximize beta jenifer therapy as tolerated. 2. Will add in Juan/ARB appropriate. 3. Encourage incentive spirometry use. Nicotine patch added 4. Increase activity, ambulate in hallway. Physical therapy to follow. 5. GI/DVT prophylaxis. 6. Diabetic management per primary care service. 7. Likely will discontinue mediastinal chest tube. Will discontinue arterial line, Cordis, Hanna. 8. Will transfer to [address] [place] [address] later today. 9. Ejection fraction preoperatively was 25-30%. May need LifeVest at discharge. Will discuss with cardiology. Time with Patient: Greater than 30 <Carmine Chambers - Last Filed: 11/10/16 10:29> Objective - Vital Signs Vital signs: Vital Signs Temp 98.5 F 11/10/16 09:00 Pulse 79 11/10/16 09:00 Resp 22 11/10/16 09:00 BP 141/67 11/10/16 09:00 Pulse Ox 96 11/10/16 09:00 Intake & Output 11/09/16 11/10/16 11/10/16 18:59 06:59 18:59 Intake Total 1410.938 611.362 858.13 Output Total 1000 1255 105 Balance 410.938 -643.638 753.13 Weight 104.6 kg 103.3 kg Intake: IV 520 460 370 ACETAMINOPHEN IV (For NPO 100 ) 1,000 mg In Empty Bag 1 bag @ 400 mls/hr IVPB Q6HR [facility] Rx#:[id number] CO/CI 10 Lactated Ringers 1,000 ml 310 460 70 @ 20 mls/hr IV .Q24H [facility] Rx#:[id number] Magnesium Sulfate-D5w Pmx 200 1 gm In Dextrose/Water 1 100ml.bag @ 100 mls/hr IVPB Q1H [facility] Rx#: [id number] Sodium Phosphate 10 mmol 100 In Sodium Chloride 0.9% 100 ml @ 50 mls/hr IVPB ONCE ONE Rx#:[id number] ceFAZolin 2 gm In Sodium 100 Chloride 0.9% 100 ml @ 100 mls/hr IVPB Q8H [facility] Rx#:[id number] Intake, IV Titration 50.938 51.362 8.13 Amount Dexmedetomidine in 0.9 % 30.073 NaCl 400 mcg In Empty Bag 1 bag @ Titrate IV .Q0M [facility] Rx#:[id number] Insulin Regular 100 unit 20.865 51.362 8.13 In Sodium Chloride 0.9% 100 ml @ Per Protocol IV .Q0M [facility] Rx#:[id number] Oral 840 100 480 Output: Chest Tube Drainage 365 280 10 Chest Tube Left Pleural/ 320 170 10 Mediastinal Chest Tube Right Lateral 45 110 0 Chest Urine 635 975 95 Other: Voiding Method Indwelling Catheter Indwelling Catheter Indwelling Catheter # Bowel Movements 0 0 ABP, PAP, CO, CI - Last Documented Arterial Blood Pressure 166/68 Pulmonary Artery Pressure 24/13 Cardiac Output 6.8 Cardiac Index 3.0 - Labs CBC & Chem 7: 11/10/16 04:47 11/10/16 04:47 Labs: Abnormal Lab Results - Last 24 Hours (Table) 11/08/16 11/08/16 11/09/16 Range/Units 15:52 16:47 11:08 WBC (3.8-10.6) k/uL RBC (4.30-5.90) m/uL Hgb (13.0-17.5) gm/dL Hct (39.0-53.0) % Neutrophils # (1.3-7.7) k/uL PT (9.0-12.0) sec ABG pO2 231 H 283 H (83-108) mmHg ABG O2 Saturation 99.8 H 99.9 H (94-97) % ABG Hematocrit 23 L 23 L (34.0-46.0) % Sodium (137-145) mmol/L Glucose (74-99) mg/dL POC Glucose (mg/dL) 157 H (75-99) mg/dL Calcium (8.4-10.2) mg/dL Phosphorus (2.5-4.5) mg/dL Total Protein (6.3-8.2) g/dL Albumin (3.5-5.0) g/dL 11/09/16 11/09/16 11/09/16 Range/Units 12:37 13:17 13:56 WBC (3.8-10.6) k/uL RBC (4.30-5.90) m/uL Hgb (13.0-17.5) gm/dL Hct (39.0-53.0) % Neutrophils # (1.3-7.7) k/uL PT (9.0-12.0) sec ABG pO2 (83-108) mmHg ABG O2 Saturation (94-97) % ABG Hematocrit (34.0-46.0) % Sodium (137-145) mmol/L Glucose (74-99) mg/dL POC Glucose (mg/dL) 148 H 136 H 151 H (75-99) mg/dL Calcium (8.4-10.2) mg/dL Phosphorus (2.5-4.5) mg/dL Total Protein (6.3-8.2) g/dL Albumin (3.5-5.0) g/dL 11/09/16 11/09/16 11/09/16 Range/Units 15:57 17:56 20:09 WBC (3.8-10.6) k/uL RBC (4.30-5.90) m/uL Hgb (13.0-17.5) gm/dL Hct (39.0-53.0) % Neutrophils # (1.3-7.7) k/uL PT (9.0-12.0) sec ABG pO2 (83-108) mmHg ABG O2 Saturation (94-97) % ABG Hematocrit (34.0-46.0) % Sodium (137-145) mmol/L Glucose (74-99) mg/dL POC Glucose (mg/dL) 148 H 117 H 181 H (75-99) mg/dL Calcium (8.4-10.2) mg/dL Phosphorus (2.5-4.5) mg/dL Total Protein (6.3-8.2) g/dL Albumin (3.5-5.0) g/dL 11/09/16 11/09/16 11/10/16 Range/Units 21:59 23:57 01:55 WBC (3.8-10.6) k/uL RBC (4.30-5.90) m/uL Hgb (13.0-17.5) gm/dL Hct (39.0-53.0) % Neutrophils # (1.3-7.7) k/uL PT (9.0-12.0) sec ABG pO2 (83-108) mmHg ABG O2 Saturation (94-97) % ABG Hematocrit (34.0-46.0) % Sodium (137-145) mmol/L Glucose (74-99) mg/dL POC Glucose (mg/dL) 148 H 146 H 126 H (75-99) mg/dL Calcium (8.4-10.2) mg/dL Phosphorus (2.5-4.5) mg/dL Total Protein (6.3-8.2) g/dL Albumin (3.5-5.0) g/dL 11/10/16 11/10/16 11/10/16 Range/Units 04:06 04:47 04:47 WBC 13.2 H (3.8-10.6) k/uL RBC 2.82 L (4.30-5.90) m/uL Hgb 8.7 L (13.0-17.5) gm/dL Hct 24.3 L (39.0-53.0) % Neutrophils # 10.7 H (1.3-7.7) k/uL PT (9.0-12.0) sec ABG pO2 (83-108) mmHg ABG O2 Saturation (94-97) % ABG Hematocrit (34.0-46.0) % Sodium 132 L (137-145) mmol/L Glucose 136 H (74-99) mg/dL POC Glucose (mg/dL) 115 H (75-99) mg/dL Calcium 8.3 L (8.4-10.2) mg/dL Phosphorus 2.3 L (2.5-4.5) mg/dL Total Protein 5.1 L (6.3-8.2) g/dL Albumin 3.1 L (3.5-5.0) g/dL 11/10/16 11/10/16 Range/Units 04:47 05:44 WBC (3.8-10.6) k/uL RBC (4.30-5.90) m/uL Hgb (13.0-17.5) gm/dL Hct (39.0-53.0) % Neutrophils # (1.3-7.7) k/uL PT 12.5 H (9.0-12.0) sec ABG pO2 (83-108) mmHg ABG O2 Saturation (94-97) % ABG Hematocrit (34.0-46.0) % Sodium (137-145) mmol/L Glucose (74-99) mg/dL POC Glucose (mg/dL) 147 H (75-99) mg/dL Calcium (8.4-10.2) mg/dL Phosphorus (2.5-4.5) mg/dL Total Protein (6.3-8.2) g/dL Albumin (3.5-5.0) g/dL Assessment and Plan Plan: The patient was seen and examined. Agree with the above assessment and plan. Overall he looks good. We'll remove his mediastinal chest tube and his right pleural tube today. We will keep his left pleural tube until tomorrow. We will increase his beta jenifer and add an JUAN inhibitor to help control his blood pressure. Otherwise his Hanna catheter, cordis, and arterial line will be removed. We will continue with ambulation and incentive spirometry. He will be transferred to selective care today.
--- NOTE | 2016-11-10 10:49 | P.PN ---
Subjective Principal diagnosis: Status post CABG, postoperative day #2 This is a 61-year-old white male with history of paroxysmal atrial fibrillation , nonischemic cardiomyopathy, patient was successfully cardioverted about 6 weeks ago. Stress test was abnormal hence a cardiac catheterization was done on 11/02/2016 and it showed a 65% distal left main disease with mild disease in the LAD circumflex and RCA. Hence the patient off pump coronary artery bypass grafting 3 with a right internal mammary artery graft to LAD, left internal mammary graft to obtuse marginal, jump graft with portion of left internal mammary artery from right internal mammary artery to first diagonal, modified Lau maze procedure with bilateral pulmonary vein ablation and ligation of left atrial appendage with 14 mm atricure clip postoperatively, patient was sent to the ICU on mechanical ventilation, and I was asked to see him on consultation. Patient is presently on IMV mode rate of 14, and he is on 35% FiO2. Initial ABG showed a pO2 of 322 pCO2 of 44 pH of 7.32. Chest x-ray showed no evidence of active disease, postoperative changes were mostly noted. Patient was reevaluated today on 11/09/2016, he was extubated shortly after he was placed on Precedex, and this was around midnight. Patient is doing well, relatively asymptomatic. Continues to do poorly with incentive spirometry, chest x-ray is showing mostly postoperative changes, and by basilar atelectasis. There is vascular congestion, but no clear-cut evidence of pulmonary edema. Small bilateral effusions noted. Clinically however the patient is doing well. Reevaluated today on 11/10/2016, patient remains on nasal cannula, O2 saturation is excellent, chest x-ray showed bibasilar atelectasis, patient is asymptomatic , still doing poorly with incentive spirometry. Hence I stressed the importance of incentive spirometer the patient and the importance of deep coughing and deep breathing. Chest x-ray was reviewed with the patient. Labs were reviewed, hemoglobin is 8.7 basic metabolic profile is relatively normal. Patient denies any shortness of breath no cough no wheezing, no chest pain. Objective - Vital Signs Vital signs: Vital Signs Temp 98.5 F 11/10/16 09:00 Pulse 79 11/10/16 09:00 Resp 22 11/10/16 09:00 BP 141/67 11/10/16 09:00 Pulse Ox 96 11/10/16 09:00 Intake & Output 11/09/16 11/10/16 11/10/16 18:59 06:59 18:59 Intake Total 1410.938 611.362 858.13 Output Total 1000 1255 105 Balance 410.938 -643.638 753.13 Weight 104.6 kg 103.3 kg Intake: IV 520 460 370 ACETAMINOPHEN IV (For NPO 100 ) 1,000 mg In Empty Bag 1 bag @ 400 mls/hr IVPB Q6HR [facility] Rx#:[id number] CO/CI 10 Lactated Ringers 1,000 ml 310 460 70 @ 20 mls/hr IV .Q24H [facility] Rx#:[id number] Magnesium Sulfate-D5w Pmx 200 1 gm In Dextrose/Water 1 100ml.bag @ 100 mls/hr IVPB Q1H [facility] Rx#: [id number] Sodium Phosphate 10 mmol 100 In Sodium Chloride 0.9% 100 ml @ 50 mls/hr IVPB ONCE ONE Rx#:[id number] ceFAZolin 2 gm In Sodium 100 Chloride 0.9% 100 ml @ 100 mls/hr IVPB Q8H [facility] Rx#:[id number] Intake, IV Titration 50.938 51.362 8.13 Amount Dexmedetomidine in 0.9 % 30.073 NaCl 400 mcg In Empty Bag 1 bag @ Titrate IV .Q0M [facility] Rx#:[id number] Insulin Regular 100 unit 20.865 51.362 8.13 In Sodium Chloride 0.9% 100 ml @ Per Protocol IV .Q0M [facility] Rx#:[id number] Oral 840 100 480 Output: Chest Tube Drainage 365 280 10 Chest Tube Left Pleural/ 320 170 10 Mediastinal Chest Tube Right Lateral 45 110 0 Chest Urine 635 975 95 Other: Voiding Method Indwelling Catheter Indwelling Catheter Indwelling Catheter # Bowel Movements 0 0 ABP, PAP, CO, CI - Last Documented Arterial Blood Pressure 166/68 Pulmonary Artery Pressure 24/13 Cardiac Output 6.8 Cardiac Index 3.0 - Exam Physical Exam: Revealed a 61-year-old white male in no distress. HEENT:[Neck is supple.] [No neck masses.] [No thyromegaly.] [No JVD.] Chest: [Diminished breath sounds and crackles at the bases, no rhonchi, no wheezes..] Cardiac Exam: [Normal S1 and S2, no S3 gallop, no murmur.] Abdomen: [Soft, nontender, no megaly, no rebound, no guarding, normal bowel sounds.] Extremities: [No clubbing, no edema, no cyanosis.] Neurological Exam: [No focal neurologic deficit.] - Labs CBC & Chem 7: 11/10/16 04:47 11/10/16 04:47 Labs: Abnormal Lab Results - Last 24 Hours (Table) 11/09/16 11/09/16 11/09/16 Range/Units 11:08 12:37 13:17 WBC (3.8-10.6) k/uL RBC (4.30-5.90) m/uL Hgb (13.0-17.5) gm/dL Hct (39.0-53.0) % Neutrophils # (1.3-7.7) k/uL PT (9.0-12.0) sec Sodium (137-145) mmol/L Glucose (74-99) mg/dL POC Glucose (mg/dL) 157 H 148 H 136 H (75-99) mg/dL Calcium (8.4-10.2) mg/dL Phosphorus (2.5-4.5) mg/dL Total Protein (6.3-8.2) g/dL Albumin (3.5-5.0) g/dL 11/09/16 11/09/16 11/09/16 Range/Units 13:56 15:57 17:56 WBC (3.8-10.6) k/uL RBC (4.30-5.90) m/uL Hgb (13.0-17.5) gm/dL Hct (39.0-53.0) % Neutrophils # (1.3-7.7) k/uL PT (9.0-12.0) sec Sodium (137-145) mmol/L Glucose (74-99) mg/dL POC Glucose (mg/dL) 151 H 148 H 117 H (75-99) mg/dL Calcium (8.4-10.2) mg/dL Phosphorus (2.5-4.5) mg/dL Total Protein (6.3-8.2) g/dL Albumin (3.5-5.0) g/dL 11/09/16 11/09/16 11/09/16 Range/Units 20:09 21:59 23:57 WBC (3.8-10.6) k/uL RBC (4.30-5.90) m/uL Hgb (13.0-17.5) gm/dL Hct (39.0-53.0) % Neutrophils # (1.3-7.7) k/uL PT (9.0-12.0) sec Sodium (137-145) mmol/L Glucose (74-99) mg/dL POC Glucose (mg/dL) 181 H 148 H 146 H (75-99) mg/dL Calcium (8.4-10.2) mg/dL Phosphorus (2.5-4.5) mg/dL Total Protein (6.3-8.2) g/dL Albumin (3.5-5.0) g/dL 11/10/16 11/10/16 11/10/16 Range/Units 01:55 04:06 04:47 WBC (3.8-10.6) k/uL RBC (4.30-5.90) m/uL Hgb (13.0-17.5) gm/dL Hct (39.0-53.0) % Neutrophils # (1.3-7.7) k/uL PT (9.0-12.0) sec Sodium 132 L (137-145) mmol/L Glucose 136 H (74-99) mg/dL POC Glucose (mg/dL) 126 H 115 H (75-99) mg/dL Calcium 8.3 L (8.4-10.2) mg/dL Phosphorus 2.3 L (2.5-4.5) mg/dL Total Protein 5.1 L (6.3-8.2) g/dL Albumin 3.1 L (3.5-5.0) g/dL 11/10/16 11/10/16 11/10/16 Range/Units 04:47 04:47 05:44 WBC 13.2 H (3.8-10.6) k/uL RBC 2.82 L (4.30-5.90) m/uL Hgb 8.7 L (13.0-17.5) gm/dL Hct 24.3 L (39.0-53.0) % Neutrophils # 10.7 H (1.3-7.7) k/uL PT 12.5 H (9.0-12.0) sec Sodium (137-145) mmol/L Glucose (74-99) mg/dL POC Glucose (mg/dL) 147 H (75-99) mg/dL Calcium (8.4-10.2) mg/dL Phosphorus (2.5-4.5) mg/dL Total Protein (6.3-8.2) g/dL Albumin (3.5-5.0) g/dL Assessment and Plan Plan: Impression: 1 Status post CABG, postoperative day #2, 2 postoperative atelectasis, patient was advised to continue incentive spirometry, bronchodilators, and early ambulation. Continue to follow. Time with Patient: Less than 30
[2016-11-10] MEDS ORDERED: FUROSEMIDE 10 MG/ML 2 ML VIAL IV ONE (11:25)
[2016-11-10] MEDS ORDERED: LOSARTAN 25 MG TAB PO SCH (12:00)
[2016-11-10 12:17] LABS: Glucose,Whole Blood 143 mg/dL (75-99)
[2016-11-10] MEDS: LOSARTAN 25 MG TAB PO SCH (13:01)
--- NOTE | 2016-11-10 14:12 | P.PN ---
Subjective Principal diagnosis: There is post CABG 3 vessels, postoperative day #2 Enzymes a 61-year-old white male history of paroxysmal atrial fibrillation, nonischemic cardiomyopathy, patient underwent successful cardioversion about 6 weeks ago. Had abnormal stress test. Subsequent cardiac catheterization on at that time the cath demonstrated 60s 5% distal left main with mild disease in the LAD circumflex and RCA yesterday patient underwent three-vessel CABG and a modified Lau maze procedure with bilateral pulmonary vein ablation and ligation of the left atrial appendage. Beau was up in the chair upon my arrival awake alert most of his chest tubes were out Hanna was out in the internal jugular central vein was out and patient was being moved to [facility]. Patient was reevaluated today is on O2 per nasal cannula chest x-ray shows atelectasis still using the incentive spirometer. Basic metabolic profile is relatively normal hemoglobin was 8.7 Objective - Vital Signs Vital signs: Vital Signs Temp 98.2 F 11/10/16 13:00 Pulse 80 11/10/16 14:00 Resp 20 11/10/16 14:00 BP 104/58 11/10/16 14:00 Pulse Ox 98 11/10/16 14:00 Intake & Output 11/09/16 11/10/16 11/10/16 18:59 06:59 18:59 Intake Total 1410.938 554.186 5386.13 Output Total 1000 1255 725 Balance 410.938 -643.638 413.13 Weight 104.6 kg 103.3 kg 103.3 kg Intake: IV 520 460 410 ACETAMINOPHEN IV (For NPO 100 ) 1,000 mg In Empty Bag 1 bag @ 400 mls/hr IVPB Q6HR [facility] Rx#:[id number] CO/CI 10 Lactated Ringers 1,000 ml 310 460 110 @ 20 mls/hr IV .Q24H [facility] Rx#:[id number] Magnesium Sulfate-D5w Pmx 200 1 gm In Dextrose/Water 1 100ml.bag @ 100 mls/hr IVPB Q1H [facility] Rx#: [id number] Sodium Phosphate 10 mmol 100 In Sodium Chloride 0.9% 100 ml @ 50 mls/hr IVPB ONCE ONE Rx#:[id number] ceFAZolin 2 gm In Sodium 100 Chloride 0.9% 100 ml @ 100 mls/hr IVPB Q8H [facility] Rx#:[id number] Intake, IV Titration 50.938 51.362 8.13 Amount Dexmedetomidine in 0.9 % 30.073 NaCl 400 mcg In Empty Bag 1 bag @ Titrate IV .Q0M [facility] Rx#:[id number] Insulin Regular 100 unit 20.865 51.362 8.13 In Sodium Chloride 0.9% 100 ml @ Per Protocol IV .Q0M [facility] Rx#:[id number] Oral 840 100 720 Output: Chest Tube Drainage 365 280 80 Chest Tube Left Pleural/ 320 170 70 Mediastinal Chest Tube Right Lateral 45 110 10 Chest LT pleural 0 Urine 635 975 645 Other: Voiding Method Indwelling Catheter Indwelling Catheter Indwelling Catheter # Bowel Movements 0 0 ABP, PAP, CO, CI - Last Documented Arterial Blood Pressure 166/68 Pulmonary Artery Pressure 24/13 Cardiac Output 6.8 Cardiac Index 3.0 - Exam General: [Patient awake, alert and oriented times 3. Patient in no acute distress.] HEENT: [PERRL. EOMI. No pharyngeal erythema or exudate.] Neck: [No adenopathy.] Cardiac: [Heart regular in rate and rhythm. No S3. No S4. No clicks, rubs. No murmur.] HEENT surgical incision is appears to be clean and dry Lungs: [Clear to auscultation bilaterally.] Abdomen: [No mass. No organomegaly. Bowel sounds presnt and normoactive in all 4 quadrants.] Extremes: [No edema no cyanosis no claudication normal pulses] : [] Musculoskeletal: [No joint erythema, edema or tenderness.] Skin: [No rash.] Neurologic: [No lateralizing deficits. CN II - XII grossly intact.] Lymphatic: [No adenopathy.] - Labs CBC & Chem 7: 11/10/16 04:47 11/10/16 04:47 Labs: Abnormal Lab Results - Last 24 Hours (Table) 11/09/16 11/09/16 11/09/16 Range/Units 15:57 17:56 20:09 WBC (3.8-10.6) k/uL RBC (4.30-5.90) m/uL Hgb (13.0-17.5) gm/dL Hct (39.0-53.0) % Neutrophils # (1.3-7.7) k/uL PT (9.0-12.0) sec Sodium (137-145) mmol/L Glucose (74-99) mg/dL POC Glucose (mg/dL) 148 H 117 H 181 H (75-99) mg/dL Calcium (8.4-10.2) mg/dL Phosphorus (2.5-4.5) mg/dL Total Protein (6.3-8.2) g/dL Albumin (3.5-5.0) g/dL 11/09/16 11/09/16 11/10/16 Range/Units 21:59 23:57 01:55 WBC (3.8-10.6) k/uL RBC (4.30-5.90) m/uL Hgb (13.0-17.5) gm/dL Hct (39.0-53.0) % Neutrophils # (1.3-7.7) k/uL PT (9.0-12.0) sec Sodium (137-145) mmol/L Glucose (74-99) mg/dL POC Glucose (mg/dL) 148 H 146 H 126 H (75-99) mg/dL Calcium (8.4-10.2) mg/dL Phosphorus (2.5-4.5) mg/dL Total Protein (6.3-8.2) g/dL Albumin (3.5-5.0) g/dL 11/10/16 11/10/16 11/10/16 Range/Units 04:06 04:47 04:47 WBC 13.2 H (3.8-10.6) k/uL RBC 2.82 L (4.30-5.90) m/uL Hgb 8.7 L (13.0-17.5) gm/dL Hct 24.3 L (39.0-53.0) % Neutrophils # 10.7 H (1.3-7.7) k/uL PT (9.0-12.0) sec Sodium 132 L (137-145) mmol/L Glucose 136 H (74-99) mg/dL POC Glucose (mg/dL) 115 H (75-99) mg/dL Calcium 8.3 L (8.4-10.2) mg/dL Phosphorus 2.3 L (2.5-4.5) mg/dL Total Protein 5.1 L (6.3-8.2) g/dL Albumin 3.1 L (3.5-5.0) g/dL 11/10/16 11/10/16 11/10/16 Range/Units 04:47 05:44 12:16 WBC (3.8-10.6) k/uL RBC (4.30-5.90) m/uL Hgb (13.0-17.5) gm/dL Hct (39.0-53.0) % Neutrophils # (1.3-7.7) k/uL PT 12.5 H (9.0-12.0) sec Sodium (137-145) mmol/L Glucose (74-99) mg/dL POC Glucose (mg/dL) 147 H 143 H (75-99) mg/dL Calcium (8.4-10.2) mg/dL Phosphorus (2.5-4.5) mg/dL Total Protein (6.3-8.2) g/dL Albumin (3.5-5.0) g/dL Assessment and Plan Plan: Assessment and plan: Status post CABG 3 vessels patient is presently extubated and doing well Multiple cardiac comorbidities include hypertension and hyperlipidemia A. fib history of cardioversion successful, history of tobacco abuse in remission, and history of nonischemic cardiomyopathy, history of obesity, Patient's chest tubes and excessive IVs were pulled , Cyndi was taken out as well ,we'll continue to follow this patient closely
[2016-11-10 14:43] LABS: Hemoglobin A1C 6.6 % (4.2-6.1)
[2016-11-10 17:08] LABS: Glucose,Whole Blood 147 mg/dL (75-99)
[2016-11-10 20:27] LABS: Glucose,Whole Blood 172 mg/dL (75-99)
[2016-11-10] MEDS: METOPROLOL TARTRATE 50 MG TAB PO SCH (21:22)
[2016-11-10] MEDS: SENNOSIDES-DOCUSATE SODIUM 1 EACH TAB PO SCH (21:22)
[2016-11-10] MEDS: INSULIN NPH 300 UNIT/3 ML VIAL SQ SCH (21:23)
[2016-11-11 04:01] LABS: Glucose,Whole Blood 147 mg/dL (75-99)
[2016-11-11] MEDS: HYDROcodone/APAP 5-325MG 1 EACH TAB PO PRN (05:10)
[2016-11-11 05:35] LABS: Glucose,Whole Blood 143 mg/dL (75-99)
[2016-11-11 06:45] LABS: CH 29.7; CHCM 34.2; HDW 2.59; HGB 8.7 gm/dL (13.0-17.5); MCH 30.4 pg (25.0-35.0); MCHC 34.9 g/dL (31.0-37.0); MCV 87.1 fL (80.0-100.0); Mean Platelet Volume 7.5; RBC 2.87 m/uL (4.30-5.90); RDW 12.9 % (11.5-15.5); WBC 12.3 k/uL (3.8-10.6)
[2016-11-11 06:55] LABS: ALT 28 U/L (21-72); AST 41 U/L (17-59); Alkaline Phosphatase 58 U/L (38-126); Anion Gap 10 mmol/L; Blood Urea Nitrogen 15 mg/dL (9-20); Calcium 8.4 mg/dL (8.4-10.2); Carbon Dioxide 25 mmol/L (22-30); Chloride 95 mmol/L (98-107); Glucose 128 mg/dL (74-99); Non-African American GFR(MDRD) >60 (>60 ml/min/1.73 sqM); Potassium 4.2 mmol/L (3.5-5.1); Sodium 130 mmol/L (137-145); Total Protein 5.7 g/dL (6.3-8.2)
[2016-11-11] MEDS: INSULN ASP PRT/INSULIN ASPART 100 UNIT/ML 10 ML VIAL SQ SCH (07:04)
[2016-11-11] MEDS: PANTOPRAZOLE 40 MG TABLET PO SCH (07:05)
[2016-11-11] MEDS: INSULIN LISPRO (humaLOG) 300 UNIT/3 ML VIAL SQ SCH ×5 (07:05→21:03)
--- NOTE | 2016-11-11 07:52 | XR ---
EXAMINATION TYPE: XR chest 1V portable DATE OF EXAM: 11/11/2016 Comparison: 11/10/2016 Clinical History: 61-year-old male post op CABG Findings: Median sternotomy wires with post-CABG clips. The heart remains mildly enlarged. Residual mild diffus e interstitial prominence. Focal opacity at the right lung base and thickening of the minor fissure r emains. Improving aeration in the retrocardiac region. Left-sided chest tube remains in place. No kyara reciable pneumothorax. Right IJ sheath has been removed. Right chest tube also removed. Impression: Mild cardiomegaly and continued focal right basilar opacity, likely atelectasis. Improving aeration a t the left base.
[2016-11-11] MEDS: IPRATROPIUM-ALBUTEROL 3 ML NEB INHALATION PRN ×3 (08:09→16:16)
[2016-11-11] MEDS: ATORVASTATIN 40 MG TAB PO SCH (09:22)
[2016-11-11] MEDS: ASPIRIN 325 MG TAB PO SCH (09:22)
[2016-11-11] MEDS: HEPARIN SODIUM,PORCINE 5,000 UNIT/ML 1 ML VIAL SQ SCH ×3 (09:22→21:05)
[2016-11-11] MEDS: METOPROLOL TARTRATE 50 MG TAB PO SCH ×2 (09:23→20:19)
[2016-11-11] MEDS: CLOPIDOGREL 75 MG TAB PO SCH (09:23)
--- NOTE | 2016-11-11 09:35 | P.PN ---
<Maryjane Raya - Last Filed: 11/11/16 09:29> Subjective Principal diagnosis: Coronary artery disease. Paroxysmal atrial fibrillation. POD #3 off-pump coronary artery bypass grafting 3 with right internal mammary artery graft to LAD, left internal mammary artery graft to obtuse marginal, jump graft with portion of left internal mammary artery from right internal mammary artery to first diagonal, modified Lau maze procedure with bilateral pulmonary vein ablation and ligation of left atrial appendage with a 40 mm AtriCure clip. Patient's currently sitting up in the chair in no acute distress. Denies chest pain, shortness of breath. Has been ambulating in the hallway. Was transferred to [address] [place] [address] yesterday. Mediastinal and right chest tube were discontinued yesterday. Hanna was discontinued yesterday. Objective - Vital Signs Vital signs: Vital Signs Temp 96.5 F L 11/11/16 08:00 Pulse 72 11/11/16 08:24 Resp 16 11/11/16 08:00 BP 116/67 11/11/16 08:00 Pulse Ox 95 11/11/16 08:14 Intake & Output 11/10/16 11/11/16 11/11/16 18:59 06:59 18:59 Intake Total 1318.13 240 Output Total 725 770 Balance 593.13 -770 240 Weight 103.3 kg 108.5 kg Intake: IV 410 Lactated Ringers 1,000 ml 110 @ 20 mls/hr IV .Q24H [facility] Rx#:[id number] Magnesium Sulfate-D5w Pmx 200 1 gm In Dextrose/Water 1 100ml.bag @ 100 mls/hr IVPB Q1H [facility] Rx#: [id number] Sodium Phosphate 10 mmol 100 In Sodium Chloride 0.9% 100 ml @ 50 mls/hr IVPB ONCE ONE Rx#:[id number] Intake, IV Titration 8.13 Amount Insulin Regular 100 unit 8.13 In Sodium Chloride 0.9% 100 ml @ Per Protocol IV .Q0M [facility] Rx#:[id number] Oral 900 240 Output: Chest Tube Drainage 80 170 Chest Tube Left Pleural/ 70 Mediastinal Chest Tube Right Lateral 10 Chest LT pleural 0 170 Urine 645 600 Other: Voiding Method Indwelling Catheter Toilet Toilet # Bowel Movements 0 ABP, PAP, CO, CI - Last Documented Arterial Blood Pressure 166/68 Pulmonary Artery Pressure 24/13 Cardiac Output 6.8 Cardiac Index 3.0 - Constitutional General appearance: Present: cooperative, no acute distress - Respiratory Details: Lungs sounds diminished bilaterally. Respirations even, nonlabored. Currently on room air with oxygen saturation 95%. Able to achieve 2000 mL on his incentive spirometry. Left pleural chest tube was to waterseal this morning, connected to -20 cm wall suction currently, drained 145 mL sisters fluid overnight, 400 mL in the last 24 hours. No air leak present. - Cardiovascular Details: S1, S2 present. Regular rate and rhythm, normal sinus rhythm on telemetry. Sternum stable. Heart hugger placed patient demonstrating appropriate use. Teds present, SCDs ordered. - Gastrointestinal Gastrointestinal Comment(s): Abdomen soft, nontender, nondistended. Active bowel sounds 4 quadrants. Tolerating diet. - Genitourinary Genitourinary Comment(s): Continues to void clear, yellow urine. - Integumentary Integumentary Comment(s): Anterior chest incision well approximated and covered with dry intact dressing. - Musculoskeletal Musculoskeletal: Present: gait normal, strength equal bilaterally - Psychiatric Psychiatric: Present: A&O x's 3, appropriate affect, intact judgment & insight - Allied health notes Allied health notes reviewed: nursing - Labs CBC & Chem 7: 11/11/16 06:30 11/11/16 06:30 Labs: Abnormal Lab Results - Last 24 Hours (Table) 11/10/16 11/10/16 11/10/16 Range/Units 04:47 12:16 17:05 WBC (3.8-10.6) k/uL RBC (4.30-5.90) m/uL Hgb (13.0-17.5) gm/dL Hct (39.0-53.0) % Sodium (137-145) mmol/L Chloride (98-107) mmol/L Glucose (74-99) mg/dL POC Glucose (mg/dL) 143 H 147 H (75-99) mg/dL Hemoglobin A1c 6.6 H (4.2-6.1) % Total Protein (6.3-8.2) g/dL Albumin (3.5-5.0) g/dL 11/10/16 11/11/16 11/11/16 Range/Units 20:25 03:59 05:33 WBC (3.8-10.6) k/uL RBC (4.30-5.90) m/uL Hgb (13.0-17.5) gm/dL Hct (39.0-53.0) % Sodium (137-145) mmol/L Chloride (98-107) mmol/L Glucose (74-99) mg/dL POC Glucose (mg/dL) 172 H 147 H 143 H (75-99) mg/dL Hemoglobin A1c (4.2-6.1) % Total Protein (6.3-8.2) g/dL Albumin (3.5-5.0) g/dL 11/11/16 11/11/16 Range/Units 06:30 06:30 WBC 12.3 H (3.8-10.6) k/uL RBC 2.87 L (4.30-5.90) m/uL Hgb 8.7 L (13.0-17.5) gm/dL Hct 25.0 L (39.0-53.0) % Sodium 130 L (137-145) mmol/L Chloride 95 L (98-107) mmol/L Glucose 128 H (74-99) mg/dL POC Glucose (mg/dL) (75-99) mg/dL Hemoglobin A1c (4.2-6.1) % Total Protein 5.7 L (6.3-8.2) g/dL Albumin 3.3 L (3.5-5.0) g/dL - Imaging and Cardiology Chest x-ray: report reviewed, image reviewed Assessment and Plan (1) History of atrial fibrillation Status: Acute (2) History of cardioversion Status: Acute (3) Hyperlipidemia Status: Acute (4) Tobacco abuse, in remission Status: Acute (5) Nonischemic cardiomyopathy Status: Acute (6) Obesity (BMI 30.0-34.9) Status: Acute (7) Hypertension Status: Acute Plan: 1. Continue aspirin, statin, Plavix, heparin, Cozaar, Lopressor. Will maximize beta jenifer therapy as tolerated. 2. Encourage incentive spirometry use. Nicotine patch added 3. Increase activity, ambulate in hallway. Physical therapy to follow. 4. GI/DVT prophylaxis. 5. Diabetic management per primary care service. 6. Ejection fraction preoperatively was 25-30%. May need LifeVest at discharge. Discussed with cardiology. 7. More recommendations as patient progresses. Likely discharge to home 24-48 hours Time with Patient: Greater than 30 <Carmine Chambers - Last Filed: 11/11/16 11:05> Objective - Vital Signs Vital signs: Vital Signs Temp 96.5 F L 11/11/16 08:00 Pulse 72 11/11/16 08:24 Resp 16 11/11/16 08:00 BP 116/67 11/11/16 08:00 Pulse Ox 95 11/11/16 08:14 Intake & Output 11/10/16 11/11/16 11/11/16 18:59 06:59 18:59 Intake Total 1318.13 240 Output Total 725 770 Balance 593.13 -770 240 Weight 103.3 kg 108.5 kg Intake: IV 410 Lactated Ringers 1,000 ml 110 @ 20 mls/hr IV .Q24H [facility] Rx#:[id number] Magnesium Sulfate-D5w Pmx 200 1 gm In Dextrose/Water 1 100ml.bag @ 100 mls/hr IVPB Q1H [facility] Rx#: [id number] Sodium Phosphate 10 mmol 100 In Sodium Chloride 0.9% 100 ml @ 50 mls/hr IVPB ONCE ONE Rx#:[id number] Intake, IV Titration 8.13 Amount Insulin Regular 100 unit 8.13 In Sodium Chloride 0.9% 100 ml @ Per Protocol IV .Q0M [facility] Rx#:[id number] Oral 900 240 Output: Chest Tube Drainage 80 170 Chest Tube Left Pleural/ 70 Mediastinal Chest Tube Right Lateral 10 Chest LT pleural 0 170 Urine 645 600 Other: Voiding Method Indwelling Catheter Toilet Toilet # Bowel Movements 0 ABP, PAP, CO, CI - Last Documented Arterial Blood Pressure 166/68 Pulmonary Artery Pressure 24 Cardiac Output 6.8 Cardiac Index 3.0 - Labs CBC & Chem 7: 11/11/16 06:30 11/11/16 06:30 Labs: Abnormal Lab Results - Last 24 Hours (Table) 11/10/16 11/10/16 11/10/16 Range/Units 04:47 12:16 17:05 WBC (3.8-10.6) k/uL RBC (4.30-5.90) m/uL Hgb (13.0-17.5) gm/dL Hct (39.0-53.0) % Sodium (137-145) mmol/L Chloride (98-107) mmol/L Glucose (74-99) mg/dL POC Glucose (mg/dL) 143 H 147 H (75-99) mg/dL Hemoglobin A1c 6.6 H (4.2-6.1) % Total Protein (6.3-8.2) g/dL Albumin (3.5-5.0) g/dL 11/10/16 11/11/16 11/11/16 Range/Units 20:25 03:59 05:33 WBC (3.8-10.6) k/uL RBC (4.30-5.90) m/uL Hgb (13.0-17.5) gm/dL Hct (39.0-53.0) % Sodium (137-145) mmol/L Chloride (98-107) mmol/L Glucose (74-99) mg/dL POC Glucose (mg/dL) 172 H 147 H 143 H (75-99) mg/dL Hemoglobin A1c (4.2-6.1) % Total Protein (6.3-8.2) g/dL Albumin (3.5-5.0) g/dL 11/11/16 11/11/16 Range/Units 06:30 06:30 WBC 12.3 H (3.8-10.6) k/uL RBC 2.87 L (4.30-5.90) m/uL Hgb 8.7 L (13.0-17.5) gm/dL Hct 25.0 L (39.0-53.0) % Sodium 130 L (137-145) mmol/L Chloride 95 L (98-107) mmol/L Glucose 128 H (74-99) mg/dL POC Glucose (mg/dL) (75-99) mg/dL Hemoglobin A1c (4.2-6.1) % Total Protein 5.7 L (6.3-8.2) g/dL Albumin 3.3 L (3.5-5.0) g/dL Assessment and Plan Plan: The patient was seen and examined. I agree with the above assessment and plan. We'll keep his left pleural chest tube in for today and give him a dose of Lasix. He will need a limited echo to evaluate his left ventricular ejection fraction. Otherwise he is ambulating without difficulty and is hemodynamically stable on room air.
--- NOTE | 2016-11-11 09:45 | P.PN ---
Subjective Principal diagnosis: Status post CABG, postoperative day #3 This is a 61-year-old white male with history of paroxysmal atrial fibrillation , nonischemic cardiomyopathy, patient was successfully cardioverted about 6 weeks ago. Stress test was abnormal hence a cardiac catheterization was done on 11/02/2016 and it showed a 65% distal left main disease with mild disease in the LAD circumflex and RCA. Hence the patient off pump coronary artery bypass grafting 3 with a right internal mammary artery graft to LAD, left internal mammary graft to obtuse marginal, jump graft with portion of left internal mammary artery from right internal mammary artery to first diagonal, modified Lau maze procedure with bilateral pulmonary vein ablation and ligation of left atrial appendage with 14 mm atricure clip postoperatively, patient was sent to the ICU on mechanical ventilation, and I was asked to see him on consultation. Patient is presently on IMV mode rate of 14, and he is on 35% FiO2. Initial ABG showed a pO2 of 322 pCO2 of 44 pH of 7.32. Chest x-ray showed no evidence of active disease, postoperative changes were mostly noted. Patient was reevaluated today on 11/09/2016, he was extubated shortly after he was placed on Precedex, and this was around midnight. Patient is doing well, relatively asymptomatic. Continues to do poorly with incentive spirometry, chest x-ray is showing mostly postoperative changes, and by basilar atelectasis. There is vascular congestion, but no clear-cut evidence of pulmonary edema. Small bilateral effusions noted. Clinically however the patient is doing well. Reevaluated today on 11/10/2016, patient remains on nasal cannula, O2 saturation is excellent, chest x-ray showed bibasilar atelectasis, patient is asymptomatic , still doing poorly with incentive spirometry. Hence I stressed the importance of incentive spirometer the patient and the importance of deep coughing and deep breathing. Chest x-ray was reviewed with the patient. Labs were reviewed, hemoglobin is 8.7 basic metabolic profile is relatively normal. Patient denies any shortness of breath no cough no wheezing, no chest pain. Reevaluated today on 11/11/2016, patient is off oxygen, doing well, improving with his intensive spirometry effort right basilar atelectasis is noted, hence the patient was advised to put more effort into his incentive spirometry. And will continue his bronchodilators. Labs were reviewed, relatively normal CBC except for hemoglobin of 8.7 and a relatively normal basic metabolic profile sodium is a bit low at 130. Objective - Vital Signs Vital signs: Vital Signs Temp 96.5 F L 11/11/16 08:00 Pulse 72 11/11/16 08:24 Resp 16 11/11/16 08:00 BP 116/67 11/11/16 08:00 Pulse Ox 95 11/11/16 08:14 Intake & Output 11/10/16 11/11/16 11/11/16 18:59 06:59 18:59 Intake Total 1318.13 240 Output Total 725 770 Balance 593.13 -770 240 Weight 103.3 kg 108.5 kg Intake: IV 410 Lactated Ringers 1,000 ml 110 @ 20 mls/hr IV .Q24H [facility] Rx#:[id number] Magnesium Sulfate-D5w Pmx 200 1 gm In Dextrose/Water 1 100ml.bag @ 100 mls/hr IVPB Q1H [facility] Rx#: [id number] Sodium Phosphate 10 mmol 100 In Sodium Chloride 0.9% 100 ml @ 50 mls/hr IVPB ONCE ONE Rx#:[id number] Intake, IV Titration 8.13 Amount Insulin Regular 100 unit 8.13 In Sodium Chloride 0.9% 100 ml @ Per Protocol IV .Q0M [facility] Rx#:[id number] Oral 900 240 Output: Chest Tube Drainage 80 170 Chest Tube Left Pleural/ 70 Mediastinal Chest Tube Right Lateral 10 Chest LT pleural 0 170 Urine 645 600 Other: Voiding Method Indwelling Catheter Toilet Toilet # Bowel Movements 0 ABP, PAP, CO, CI - Last Documented Arterial Blood Pressure 166/68 Pulmonary Artery Pressure 24/13 Cardiac Output 6.8 Cardiac Index 3.0 - Exam Physical Exam: Revealed a 61-year-old white male in no distress. HEENT:[Neck is supple.] [No neck masses.] [No thyromegaly.] [No JVD.] Chest: [Diminished breath sounds and crackles at the bases, no rhonchi, no wheezes..] Cardiac Exam: [Normal S1 and S2, no S3 gallop, no murmur.] Abdomen: [Soft, nontender, no megaly, no rebound, no guarding, normal bowel sounds.] Extremities: [No clubbing, no edema, no cyanosis.] Neurological Exam: [No focal neurologic deficit.] - Labs CBC & Chem 7: 07/09/17 06:30 11/11/16 06:30 Labs: Abnormal Lab Results - Last 24 Hours (Table) 11/10/16 11/10/16 11/10/16 Range/Units 04:47 12:16 17:05 WBC (3.8-10.6) k/uL RBC (4.30-5.90) m/uL Hgb (13.0-17.5) gm/dL Hct (39.0-53.0) % Sodium (137-145) mmol/L Chloride (98-107) mmol/L Glucose (74-99) mg/dL POC Glucose (mg/dL) 143 H 147 H (75-99) mg/dL Hemoglobin A1c 6.6 H (4.2-6.1) % Total Protein (6.3-8.2) g/dL Albumin (3.5-5.0) g/dL 11/10/16 11/11/16 11/11/16 Range/Units 20:25 03:59 05:33 WBC (3.8-10.6) k/uL RBC (4.30-5.90) m/uL Hgb (13.0-17.5) gm/dL Hct (39.0-53.0) % Sodium (137-145) mmol/L Chloride (98-107) mmol/L Glucose (74-99) mg/dL POC Glucose (mg/dL) 172 H 147 H 143 H (75-99) mg/dL Hemoglobin A1c (4.2-6.1) % Total Protein (6.3-8.2) g/dL Albumin (3.5-5.0) g/dL 11/11/16 11/11/16 Range/Units 06:30 06:30 WBC 12.3 H (3.8-10.6) k/uL RBC 2.87 L (4.30-5.90) m/uL Hgb 8.7 L (13.0-17.5) gm/dL Hct 25.0 L (39.0-53.0) % Sodium 130 L (137-145) mmol/L Chloride 95 L (98-107) mmol/L Glucose 128 H (74-99) mg/dL POC Glucose (mg/dL) (75-99) mg/dL Hemoglobin A1c (4.2-6.1) % Total Protein 5.7 L (6.3-8.2) g/dL Albumin 3.3 L (3.5-5.0) g/dL Assessment and Plan Plan: Impression: 1 Status post CABG, postoperative day #3 2 postoperative atelectasis, patient was advised to continue incentive spirometry, bronchodilators, and early ambulation. Continue to follow. Time with Patient: Less than 30
[2016-11-11] MEDS ORDERED: FUROSEMIDE 10 MG/ML 4 ML VIAL IV STA (10:57)
[2016-11-11] MEDS: LOSARTAN 25 MG TAB PO SCH (11:38)
[2016-11-11] MEDS: NICOTINE 21MG/24HR PATCH TRANSDERM SCH (11:39)
[2016-11-11 11:40] LABS: Glucose,Whole Blood 113 mg/dL (75-99)
--- NOTE | 2016-11-11 12:28 | P.PN ---
Subjective Principal diagnosis: There is post CABG 3 vessels, postoperative day #3 Enzymes a 61-year-old white male history of paroxysmal atrial fibrillation, nonischemic cardiomyopathy, patient underwent successful cardioversion about 6 weeks ago. Had abnormal stress test. Subsequent cardiac catheterization on at that time the cath demonstrated 60s 5% distal left main with mild disease in the LAD circumflex and RCA yesterday patient underwent three-vessel CABG and a modified Lau maze procedure with bilateral pulmonary vein ablation and ligation of the left atrial appendage. Beau was up in the chair upon my arrival awake alert most of his chest tubes were out Hanna was out in the internal jugular central vein was out and patient was being moved to [facility] Patient was reevaluated today is on O2 per nasal cannula chest x-ray shows atelectasis still using the incentive spirometer. Basic metabolic profile is relatively normal hemoglobin was 8.7 Beau was reevaluated today on 11/11/2016 patient's off oxygen, doing extremely well improve with spirometry respiratory effort significantly improved. CBC still A.7, normal basic metabolic panel sodium is low. Patient is otherwise doing quite well Objective - Vital Signs Vital signs: Vital Signs Temp 97.4 F L 11/11/16 11:37 Pulse 77 11/11/16 11:59 Resp 17 11/11/16 11:37 BP 110/58 11/11/16 11:37 Pulse Ox 95 11/11/16 11:37 Intake & Output 11/10/16 11/11/16 11/11/16 18:59 06:59 18:59 Intake Total 1318.13 240 Output Total 725 770 0 Balance 593.13 -770 240 Weight 103.3 kg 108.5 kg Intake: IV 410 Lactated Ringers 1,000 ml 110 @ 20 mls/hr IV .Q24H TOM Rx#:[id number] Magnesium Sulfate-D5w Pmx 200 1 gm In Dextrose/Water 1 100ml.bag @ 100 mls/hr IVPB Q1H TOM Rx#: [id number] Sodium Phosphate 10 mmol 100 In Sodium Chloride 0.9% 100 ml @ 50 mls/hr IVPB ONCE ONE Rx#:[id number] Intake, IV Titration 8.13 Amount Insulin Regular 100 unit 8.13 In Sodium Chloride 0.9% 100 ml @ Per Protocol IV .Q0M TOM Rx#:[id number] Oral 900 240 Output: Chest Tube Drainage 80 170 0 Chest Tube Left Pleural/ 70 Mediastinal Chest Tube Right Lateral 10 Chest LT pleural 0 170 0 Urine 645 600 Other: Voiding Method Indwelling Catheter Toilet Toilet # Bowel Movements 0 ABP, PAP, CO, CI - Last Documented Arterial Blood Pressure 166/68 Pulmonary Artery Pressure 24/13 Cardiac Output 6.8 Cardiac Index 3.0 - Exam General: [Patient awake, alert and oriented times 3. Patient in no acute distress.] HEENT: [PERRL. EOMI. No pharyngeal erythema or exudate.] Neck: [No adenopathy.] Cardiac: [Heart regular in rate and rhythm. No S3. No S4. No clicks, rubs. No murmur.] HEENT surgical incision is appears to be clean and dry Lungs: [Clear to auscultation bilaterally.] Abdomen: [No mass. No organomegaly. Bowel sounds presnt and normoactive in all 4 quadrants.] Extremes: [No edema no cyanosis no claudication normal pulses] : [] Musculoskeletal: [No joint erythema, edema or tenderness.] Skin: [No rash.] Neurologic: [No lateralizing deficits. CN II - XII grossly intact.] Lymphatic: [No adenopathy.] - Labs CBC & Chem 7: 11/11/16 06:30 11/11/16 06:30 Labs: Abnormal Lab Results - Last 24 Hours (Table) 11/10/16 11/10/16 11/10/16 Range/Units 04:47 17:05 20:25 WBC (3.8-10.6) k/uL RBC (4.30-5.90) m/uL Hgb (13.0-17.5) gm/dL Hct (39.0-53.0) % Sodium (137-145) mmol/L Chloride (98-107) mmol/L Glucose (74-99) mg/dL POC Glucose (mg/dL) 147 H 172 H (75-99) mg/dL Hemoglobin A1c 6.6 H (4.2-6.1) % Total Protein (6.3-8.2) g/dL Albumin (3.5-5.0) g/dL 11/11/16 11/11/16 11/11/16 Range/Units 03:59 05:33 06:30 WBC (3.8-10.6) k/uL RBC (4.30-5.90) m/uL Hgb (13.0-17.5) gm/dL Hct (39.0-53.0) % Sodium 130 L (137-145) mmol/L Chloride 95 L (98-107) mmol/L Glucose 128 H (74-99) mg/dL POC Glucose (mg/dL) 147 H 143 H (75-99) mg/dL Hemoglobin A1c (4.2-6.1) % Total Protein 5.7 L (6.3-8.2) g/dL Albumin 3.3 L (3.5-5.0) g/dL 11/11/16 11/11/16 Range/Units 06:30 11:17 WBC 12.3 H (3.8-10.6) k/uL RBC 2.87 L (4.30-5.90) m/uL Hgb 8.7 L (13.0-17.5) gm/dL Hct 25.0 L (39.0-53.0) % Sodium (137-145) mmol/L Chloride (98-107) mmol/L Glucose (74-99) mg/dL POC Glucose (mg/dL) 113 H (75-99) mg/dL Hemoglobin A1c (4.2-6.1) % Total Protein (6.3-8.2) g/dL Albumin (3.5-5.0) g/dL Assessment and Plan Plan: Assessment and plan: Status post CABG 3 vessels patient is presently extubated and doing well Multiple cardiac comorbidities include hypertension and hyperlipidemia A. fib history of cardioversion successful, history of tobacco abuse in remission, and history of nonischemic cardiomyopathy, history of obesity, Patient's chest tubes and excessive IVs were pulled , Cyndi was taken out as well ,we'll continue to follow this patient closely
[2016-11-11 16:36] LABS: Glucose,Whole Blood 126 mg/dL (75-99)
[2016-11-11] MEDS: SENNOSIDES-DOCUSATE SODIUM 1 EACH TAB PO SCH (20:19)
[2016-11-11 20:59] LABS: Glucose,Whole Blood 175 mg/dL (75-99)
[2016-11-11] MEDS: INSULIN NPH 300 UNIT/3 ML VIAL SQ SCH (21:04)
[2016-11-12 02:59] LABS: Glucose,Whole Blood 139 mg/dL (75-99)
[2016-11-12] MEDS: HYDROcodone/APAP 5-325MG 1 EACH TAB PO PRN (05:13)
--- NOTE | 2016-11-12 05:58 | PN ---
Mr. Pena is a 61-year-old male who has underwent coronary artery bypass grafting by Dr. Jensen. He has a history of paroxysmal atrial fibrillation, history of nonischemic cardiomyopathy, underwent the coronary artery bypass grafting on the 6th of this month and received a right internal mammary artery to the LAD, MAGANA to the obtuse marginal branch which ( ) portion of the LAD from the right internal mammary artery to first diagonal branch with modified Lau Maze procedure and ligation of the left atrial appendage. He is doing well. He is denying any chest pain. His breathing has been stable. He denies any dizziness or palpitation. He denies any nausea. He is hemodynamically stable and continues to be in sinus mechanism. He continues to be at this time on aspirin once a day, Lipitor 40 mg daily, Plavix 75 mg daily, insulin, losartan 12.5 mg daily, metoprolol tartrate 50 mg twice a day. PHYSICAL EXAMINATION: Blood pressure is 109/72 with the heart rate in the 70s. Lungs with mild decrease in breath sounds. Heart: Regular rate and rhythm. S1, S2, no rub. ABDOMEN: Soft, nontender. EXTREMITIES: No edema. Lab data revealed BUN and creatinine 12 and 0.6. Hemoglobin of 8.7. IMPRESSION: 1. Status post coronary artery bypass grafting, stable. 2. Prior history of atrial fibrillation and continues to be in sinus mechanism. 3. Hyperlipidemia. RECOMMENDATIONS: From the cardiac standpoint, will continue present therapy, increase his level of activity, increase ambulation and depending on progress, further recommendations will be made. ANDREW
[2016-11-12 06:11] LABS: Glucose,Whole Blood 141 mg/dL (75-99)
[2016-11-12 06:30] LABS: CH 30.5; CHCM 34.7; HCT 22.9 % (39.0-53.0); HDW 2.63; HGB 7.8 gm/dL (13.0-17.5); MCH 30.1 pg (25.0-35.0); MCHC 34.1 g/dL (31.0-37.0); MCV 88.3 fL (80.0-100.0); Mean Platelet Volume 7.5; RBC 2.59 m/uL (4.30-5.90); RDW 13.4 % (11.5-15.5)
[2016-11-12 06:41] LABS: ALT 36 U/L (21-72); AST 31 U/L (17-59); Alkaline Phosphatase 59 U/L (38-126); Anion Gap 7 mmol/L; Blood Urea Nitrogen 14 mg/dL (9-20); Calcium 8.4 mg/dL (8.4-10.2); Carbon Dioxide 27 mmol/L (22-30); Chloride 94 mmol/L (98-107); Glucose 125 mg/dL (74-99); Non-African American GFR(MDRD) >60 (>60 ml/min/1.73 sqM); Sodium 128 mmol/L (137-145); Total Bilirubin 0.7 mg/dL (0.2-1.3); Total Protein 5.2 g/dL (6.3-8.2)
[2016-11-12] MEDS: INSULIN LISPRO (humaLOG) 300 UNIT/3 ML VIAL SQ SCH ×5 (07:21→22:19)
[2016-11-12] MEDS: PANTOPRAZOLE 40 MG TABLET PO SCH (07:22)
[2016-11-12] MEDS: INSULN ASP PRT/INSULIN ASPART 100 UNIT/ML 10 ML VIAL SQ SCH (07:23)
[2016-11-12] MEDS: IPRATROPIUM-ALBUTEROL 3 ML NEB INHALATION PRN ×2 (08:00→11:10)
[2016-11-12] MEDS: CLOPIDOGREL 75 MG TAB PO SCH (08:18)
[2016-11-12] MEDS: HEPARIN SODIUM,PORCINE 5,000 UNIT/ML 1 ML VIAL SQ SCH ×3 (08:18→22:22)
[2016-11-12] MEDS: ASPIRIN 325 MG TAB PO SCH (08:18)
[2016-11-12] MEDS: ATORVASTATIN 40 MG TAB PO SCH (08:18)
[2016-11-12] MEDS: NICOTINE 21MG/24HR PATCH TRANSDERM SCH (08:18)
[2016-11-12] MEDS: METOPROLOL TARTRATE 50 MG TAB PO SCH ×2 (08:18→22:21)
[2016-11-12] MEDS ORDERED: FUROSEMIDE 10 MG/ML 4 ML VIAL IV STA (08:51)
--- NOTE | 2016-11-12 09:03 | XR ---
EXAMINATION TYPE: XR chest 1V portable DATE OF EXAM: 11/12/2016 CLINICAL HISTORY: Difficulty breathing progress study. Postoperative CABG. TECHNIQUE: Single AP portable upright view of the chest is obtained. COMPARISON: Chest x-ray from one day earlier FINDINGS: Post-CABG changes with mediastinal clips and sternal wires is redemonstrated. Left-sided c hest tube is again seen. Metallic valvular ring redemonstrated. There is persistent cardiomegaly with mild central vascular congestion. There is persistent right mid lung linear scarring or atelectasis. Just below this there is persistent right basilar atelectasis an d/or infiltrate. No new focal airspace opacity, pleural effusion, or pneumothorax is seen bilaterally . IMPRESSION: Overall stable findings, cardiomegaly with mild central vascular congestion and right b asilar atelectasis and/or infiltrate and left-sided chest tube all redemonstrated. No new infiltrate is seen.
--- NOTE | 2016-11-12 10:42 | ECHOF ---
Referral Reason:eval post operative EF MEASUREMENTS -------- HEIGHT: 182.9 cm WEIGHT: 108.0 kg BP: 117/70 RVIDd: 2.4 cm (< 3.3) IVSd: 1.0 cm (0.6 - 1.1) LVIDd: 4.1 cm (3.9 - 5.3) LVPWd: 1.0 cm (0.6 - 1.1) IVSs: 1.4 cm LVIDs: 3.1 cm LVPWs: 1.5 cm LA Diam: 2.8 cm (2.7 - 3.8) LAESV Index (A-L): 22.84 ml/m Ao Diam: 3.4 cm (2.0 - 3.7) AV Cusp: 2.3 cm (1.5 - 2.6) MV EXCURSION: 17.007 mm (> 18.000) MV EF SLOPE: 92 mm/s (70 - 150) EPSS: 1.6 cm MV E Iglesia: 0.76 m/s MV DecT: 172 ms MV A Iglesia: 0.62 m/s MV E/A Ratio: 1.23 FINDINGS -------- Sinus rhythm. This was a technically difficult study with suboptimal views. The left ventricular size is normal. Left ventricular wall thickness is normal. Overall left ventricular systolic function is mildly impaired with, an EF between 45 - 50 %. Basal inferoseptal LV wall motion is hypokinetic. The right ventricle is normal in size. Normal LA size by volume 22+/-6 ml/m2. The right atrium is normal in size. The aortic valve was not well visualized. Mild mitral annular calcification present. The tricuspid valve appears structurally normal. The pulmonic valve was not well visualized. The aortic root size is normal. There is no pericardial effusion. CONCLUSIONS -------- 1. Sinus rhythm. 2. The pulmonic valve was not well visualized. 3. The aortic root size is normal. 4. There is no pericardial effusion. 5. This was a technically difficult study with suboptimal views. 6. The left ventricular size is normal. 7. Left ventricular wall thickness is normal. 8. Overall left ventricular systolic function is mildly impaired with, an EF between 45 - 50 %. 9. Normal LA size by volume 22+/-6 ml/m2. 10. The aortic valve was not well visualized. 11. Mild mitral annular calcification present. 12. The tricuspid valve appears structurally normal. [employer] DEPARTMENT CHAIR: Cristina Andrea RDCS
--- NOTE | 2016-11-12 11:41 | P.PN ---
<Maryjane Raya - Last Filed: 11/12/16 11:37> Subjective Principal diagnosis: Coronary artery disease. Paroxysmal atrial fibrillation. POD #4 off-pump coronary artery bypass grafting 3 with right internal mammary artery graft to LAD, left internal mammary artery graft to obtuse marginal, jump graft with portion of left internal mammary artery from right internal mammary artery to first diagonal, modified Lau maze procedure with bilateral pulmonary vein ablation and ligation of left atrial appendage with a 40 mm AtriCure clip. Patient's currently sitting up in the chair in no acute distress. Denies chest pain, shortness of breath. Has been ambulating in the hallway. Objective - Vital Signs Vital signs: Vital Signs Temp 97 F L 11/12/16 08:00 Pulse 76 11/12/16 11:10 Resp 17 11/12/16 08:00 BP 128/75 11/12/16 08:00 Pulse Ox 95 11/12/16 08:00 Intake & Output 11/11/16 11/12/16 11/12/16 18:59 06:59 18:59 Intake Total 960 20 300 Output Total 0 620 200 Balance 960 -600 100 Weight 108.2 kg Intake: IV 20 0.9% NS FLUSH 20 Oral 960 300 Output: Chest Tube Drainage 0 70 LT pleural 0 70 Urine 550 200 Other: Voiding Method Toilet Toilet Toilet # Voids 1 1 ABP, PAP, CO, CI - Last Documented Arterial Blood Pressure 166/68 Pulmonary Artery Pressure 24/13 Cardiac Output 6.8 Cardiac Index 3.0 - Constitutional General appearance: Present: cooperative, no acute distress - Respiratory Details: lungs sounds diminished bilaterally. Respirations even, nonlabored. Currently on room air with oxygen saturation 96%. Able to achieve 1000 mL on his incentive spirometry. Left pleural chest tube drained 40 mL overnight, 150 in the last 24 hours, discontinue this morning without incident. - Cardiovascular Details: S1, S2 present. Regular rate and rhythm, normal sinus rhythm on telemetry. Sternum stable. Heart hugger in place with patient demonstrating appropriate use. No edema present. Teds/SCDs present. - Gastrointestinal Gastrointestinal Comment(s): Abdomen soft, nontender, nondistended. Active bowel sounds 4 quadrants. Tolerating diet. - Genitourinary Genitourinary Comment(s): Continues to void clear, yellow urine. - Integumentary Integumentary Comment(s): Anterior chest incision well approximated with Dermabond dressing. - Musculoskeletal Musculoskeletal: Present: gait normal, strength equal bilaterally - Psychiatric Psychiatric: Present: A&O x's 3, appropriate affect, intact judgment & insight - Allied health notes Allied health notes reviewed: nursing - Labs CBC & Chem 7: 11/12/16 06:05 11/12/16 06:01 Labs: Abnormal Lab Results - Last 24 Hours (Table) 11/11/16 11/11/16 11/11/16 Range/Units 11:17 16:32 20:59 RBC (4.30-5.90) m/uL Hgb (13.0-17.5) gm/dL Hct (39.0-53.0) % Sodium (137-145) mmol/L Chloride (98-107) mmol/L Glucose (74-99) mg/dL POC Glucose (mg/dL) 113 H 126 H 175 H (75-99) mg/dL Total Protein (6.3-8.2) g/dL Albumin (3.5-5.0) g/dL 11/12/16 11/12/16 11/12/16 Range/Units 02:07 06:01 06:05 RBC 2.59 L (4.30-5.90) m/uL Hgb 7.8 L (13.0-17.5) gm/dL Hct 22.9 L (39.0-53.0) % Sodium 128 L (137-145) mmol/L Chloride 94 L (98-107) mmol/L Glucose 125 H (74-99) mg/dL POC Glucose (mg/dL) 139 H (75-99) mg/dL Total Protein 5.2 L (6.3-8.2) g/dL Albumin 3.0 L (3.5-5.0) g/dL 11/12/16 Range/Units 06:10 RBC (4.30-5.90) m/uL Hgb (13.0-17.5) gm/dL Hct (39.0-53.0) % Sodium (137-145) mmol/L Chloride (98-107) mmol/L Glucose (74-99) mg/dL POC Glucose (mg/dL) 141 H (75-99) mg/dL Total Protein (6.3-8.2) g/dL Albumin (3.5-5.0) g/dL - Imaging and Cardiology Chest x-ray: report reviewed, image reviewed Assessment and Plan (1) History of atrial fibrillation Status: Acute (2) History of cardioversion Status: Acute (3) Hyperlipidemia Status: Acute (4) Tobacco abuse, in remission Status: Acute (5) Nonischemic cardiomyopathy Status: Acute (6) Obesity (BMI 30.0-34.9) Status: Acute (7) Hypertension Status: Acute Plan: 1. Continue aspirin, statin, Plavix, heparin, Cozaar, Lopressor. Will maximize beta jenifer therapy as tolerated. 2. Encourage incentive spirometry use. Nicotine patch added 3. Left pleural chest tube discontinued this morning without incident. Chest x -ray ordered for morning. Lasix 40 mg IV push 1 ordered. 4. Increase activity, ambulate in hallway. Physical therapy to follow. 5. GI/DVT prophylaxis. 6. Diabetic management per primary care service. 7. Ejection fraction preoperatively was 25-30%. Repeat echo done this morning , EF 45-50%, no life vest necessary. 8. More recommendations as patient progresses. Likely discharge to home 24-48 hours Time with Patient: Greater than 30 <Carmine Chambers - Last Filed: 11/12/16 15:20> Objective - Vital Signs Vital signs: Vital Signs Temp 97 F L 11/12/16 08:00 Pulse 90 11/12/16 11:41 Resp 17 11/12/16 15:15 BP 99/58 11/12/16 11:41 Pulse Ox 95 11/12/16 11:41 Intake & Output 11/11/16 11/12/16 11/12/16 18:59 06:59 18:59 Intake Total 960 20 540 Output Total 0 620 800 Balance 960 -600 -260 Weight 108.2 kg Intake: IV 20 0.9% NS FLUSH 20 Oral 960 540 Output: Chest Tube Drainage 0 70 LT pleural 0 70 Urine 550 800 Other: Voiding Method Toilet Toilet Toilet # Voids 1 1 ABP, PAP, CO, CI - Last Documented Arterial Blood Pressure 166/68 Pulmonary Artery Pressure 24/13 Cardiac Output 6.8 Cardiac Index 3.0 - Labs CBC & Chem 7: 11/12/16 06:05 11/12/16 06:01 Labs: Abnormal Lab Results - Last 24 Hours (Table) 11/11/16 11/11/16 11/12/16 Range/Units 16:32 20:59 02:07 RBC (4.30-5.90) m/uL Hgb (13.0-17.5) gm/dL Hct (39.0-53.0) % Sodium (137-145) mmol/L Chloride (98-107) mmol/L Glucose (74-99) mg/dL POC Glucose (mg/dL) 126 H 175 H 139 H (75-99) mg/dL Total Protein (6.3-8.2) g/dL Albumin (3.5-5.0) g/dL 11/12/16 11/12/16 11/12/16 Range/Units 06:01 06:05 06:10 RBC 2.59 L (4.30-5.90) m/uL Hgb 7.8 L (13.0-17.5) gm/dL Hct 22.9 L (39.0-53.0) % Sodium 128 L (137-145) mmol/L Chloride 94 L (98-107) mmol/L Glucose 125 H (74-99) mg/dL POC Glucose (mg/dL) 141 H (75-99) mg/dL Total Protein 5.2 L (6.3-8.2) g/dL Albumin 3.0 L (3.5-5.0) g/dL 11/12/16 Range/Units 12:10 RBC (4.30-5.90) m/uL Hgb (13.0-17.5) gm/dL Hct (39.0-53.0) % Sodium (137-145) mmol/L Chloride (98-107) mmol/L Glucose (74-99) mg/dL POC Glucose (mg/dL) 113 H (75-99) mg/dL Total Protein (6.3-8.2) g/dL Albumin (3.5-5.0) g/dL Assessment and Plan Plan: The patient was seen and examined. I agree with the above assessment and plan. His remaining chest tube was removed this morning. He was given a dose of Lasix. He will continue to ambulate as tolerated. Follow-up echocardiogram did reveal an ejection fraction of 45-50%. There is no need for a LifeVest. He will likely be discharged home tomorrow.
--- NOTE | 2016-11-12 12:10 | P.PN ---
Subjective Principal diagnosis: Status post CABG. This is a 61-year-old white male with history of paroxysmal atrial fibrillation , nonischemic cardiomyopathy, patient was successfully cardioverted about 6 weeks ago. Stress test was abnormal hence a cardiac catheterization was done on 11/02/2016 and it showed a 65% distal left main disease with mild disease in the LAD circumflex and RCA. Hence the patient off pump coronary artery bypass grafting 3 with a right internal mammary artery graft to LAD, left internal mammary graft to obtuse marginal, jump graft with portion of left internal mammary artery from right internal mammary artery to first diagonal, modified Lau maze procedure with bilateral pulmonary vein ablation and ligation of left atrial appendage with 14 mm atricure clip postoperatively, patient was sent to the ICU on mechanical ventilation, and I was asked to see him on consultation. Patient is presently on IMV mode rate of 14, and he is on 35% FiO2. Initial ABG showed a pO2 of 322 pCO2 of 44 pH of 7.32. Chest x-ray showed no evidence of active disease, postoperative changes were mostly noted. Patient was reevaluated today on 11/09/2016, he was extubated shortly after he was placed on Precedex, and this was around midnight. Patient is doing well, relatively asymptomatic. Continues to do poorly with incentive spirometry, chest x-ray is showing mostly postoperative changes, and by basilar atelectasis. There is vascular congestion, but no clear-cut evidence of pulmonary edema. Small bilateral effusions noted. Clinically however the patient is doing well. Reevaluated today on 11/10/2016, patient remains on nasal cannula, O2 saturation is excellent, chest x-ray showed bibasilar atelectasis, patient is asymptomatic , still doing poorly with incentive spirometry. Hence I stressed the importance of incentive spirometer the patient and the importance of deep coughing and deep breathing. Chest x-ray was reviewed with the patient. Labs were reviewed, hemoglobin is 8.7 basic metabolic profile is relatively normal. Patient denies any shortness of breath no cough no wheezing, no chest pain. Reevaluated today on 11/11/2016, patient is off oxygen, doing well, improving with his intensive spirometry effort right basilar atelectasis is noted, hence the patient was advised to put more effort into his incentive spirometry. And will continue his bronchodilators. Labs were reviewed, relatively normal CBC except for hemoglobin of 8.7 and a relatively normal basic metabolic profile sodium is a bit low at 130. The patient is seen again today 11/12/2016 in follow-up. He is awake and alert in no acute distress. He denies any worsening shortness of breath, cough or congestion. He is maintaining good O2 saturations in the mid 90s on room air. He's been hemodynamically stable. Hemoglobin 7.8. No leukocytosis. His sodium is drifting down currently at 128. Objective - Vital Signs Vital signs: Vital Signs Temp 97 F L 11/12/16 08:00 Pulse 90 11/12/16 11:41 Resp 17 11/12/16 11:41 BP 99/58 11/12/16 11:41 Pulse Ox 95 11/12/16 11:41 Intake & Output 11/11/16 11/12/16 11/12/16 18:59 06:59 18:59 Intake Total 960 20 300 Output Total 0 620 200 Balance 960 -600 100 Weight 108.2 kg Intake: IV 20 0.9% NS FLUSH 20 Oral 960 300 Output: Chest Tube Drainage 0 70 LT pleural 0 70 Urine 550 200 Other: Voiding Method Toilet Toilet Toilet # Voids 1 1 ABP, PAP, CO, CI - Last Documented Arterial Blood Pressure 166/68 Pulmonary Artery Pressure 24/13 Cardiac Output 6.8 Cardiac Index 3.0 - Exam Physical Exam: Revealed a 61-year-old white male in no distress. HEENT:[Neck is supple.] [No neck masses.] [No thyromegaly.] [No JVD.] Chest: [Diminished breath sounds and crackles at the bases, no rhonchi, no wheezes..] Cardiac Exam: [Normal S1 and S2, no S3 gallop, no murmur.] Abdomen: [Soft, nontender, no megaly, no rebound, no guarding, normal bowel sounds.] Extremities: [No clubbing, no edema, no cyanosis.] Neurological Exam: [No focal neurologic deficit.] - Labs CBC & Chem 7: 11/12/16 06:05 11/12/16 06:01 Labs: Abnormal Lab Results - Last 24 Hours (Table) 11/11/16 11/11/16 11/12/16 Range/Units 16:32 20:59 02:07 RBC (4.30-5.90) m/uL Hgb (13.0-17.5) gm/dL Hct (39.0-53.0) % Sodium (137-145) mmol/L Chloride (98-107) mmol/L Glucose (74-99) mg/dL POC Glucose (mg/dL) 126 H 175 H 139 H (75-99) mg/dL Total Protein (6.3-8.2) g/dL Albumin (3.5-5.0) g/dL 11/12/16 11/12/16 11/12/16 Range/Units 06:01 06:05 06:10 RBC 2.59 L (4.30-5.90) m/uL Hgb 7.8 L (13.0-17.5) gm/dL Hct 22.9 L (39.0-53.0) % Sodium 128 L (137-145) mmol/L Chloride 94 L (98-107) mmol/L Glucose 125 H (74-99) mg/dL POC Glucose (mg/dL) 141 H (75-99) mg/dL Total Protein 5.2 L (6.3-8.2) g/dL Albumin 3.0 L (3.5-5.0) g/dL Assessment and Plan Plan: Impression: 1 Status post CABG, postoperative day #4 2 postoperative atelectasis, patient was advised to continue incentive spirometry, bronchodilators, and early ambulation. Plan: The patient was seen and evaluated by Dr. Lin. We'll continue with his current medications. His chest x-ray was reviewed. Left-sided chest tube remains in place. He is working well at the incentive spirometer. He is again educated regarding the importance of complete smoking cessation. A NicoDerm patch remains in place. We will increase his activity as tolerated. We'll continue to follow.
[2016-11-12 12:12] LABS: Glucose,Whole Blood 113 mg/dL (75-99)
--- NOTE | 2016-11-12 14:24 | P.PN ---
Subjective This is a 61-year-old white male with history of abnormal Stress test was abnormal hence a cardiac catheterization was done on 11/02/2016 and it showed a 65% distal left main disease with mild disease in the LAD circumflex and RCA. Hence the patient underwent coronary artery bypass grafting 3.. He is postop day #4. his chest tubes are out. He had a bm. denies any c/o Objective - Vital Signs Vital signs: Vital Signs Temp 97 F L 11/12/16 08:00 Pulse 90 11/12/16 11:41 Resp 17 11/12/16 11:41 BP 99/58 11/12/16 11:41 Pulse Ox 95 11/12/16 11:41 Intake & Output 11/11/16 11/12/16 11/12/16 18:59 06:59 18:59 Intake Total 960 20 300 Output Total 0 620 200 Balance 960 -600 100 Weight 108.2 kg Intake: IV 20 0.9% NS FLUSH 20 Oral 960 300 Output: Chest Tube Drainage 0 70 LT pleural 0 70 Urine 550 200 Other: Voiding Method Toilet Toilet Toilet # Voids 1 1 ABP, PAP, CO, CI - Last Documented Arterial Blood Pressure 166/68 Pulmonary Artery Pressure 24/13 Cardiac Output 6.8 Cardiac Index 3.0 - Constitutional General appearance: Present: average body habitus - Neck Neck: Absent: lymphadenopathy, thyromegaly Thyroid: bilateral: normal size - Respiratory Respiratory: bilateral: CTA - Cardiovascular Rhythm: regular Heart sounds: normal: S1, S2 Abnormal Heart Sounds: Absent: systolic murmur - Gastrointestinal General gastrointestinal: Present: normal bowel sounds. Absent: hepatomegaly, splenomegaly - Neurologic Neurologic: Present: CNII-XII intact. Absent: focal deficits - Psychiatric Psychiatric: Present: A&O x's 3 - Labs CBC & Chem 7: 11/12/16 06:05 11/12/16 06:01 Labs: Abnormal Lab Results - Last 24 Hours (Table) 11/11/16 11/11/16 11/12/16 Range/Units 16:32 20:59 02:07 RBC (4.30-5.90) m/uL Hgb (13.0-17.5) gm/dL Hct (39.0-53.0) % Sodium (137-145) mmol/L Chloride (98-107) mmol/L Glucose (74-99) mg/dL POC Glucose (mg/dL) 126 H 175 H 139 H (75-99) mg/dL Total Protein (6.3-8.2) g/dL Albumin (3.5-5.0) g/dL 11/12/16 11/12/16 11/12/16 Range/Units 06:01 06:05 06:10 RBC 2.59 L (4.30-5.90) m/uL Hgb 7.8 L (13.0-17.5) gm/dL Hct 22.9 L (39.0-53.0) % Sodium 128 L (137-145) mmol/L Chloride 94 L (98-107) mmol/L Glucose 125 H (74-99) mg/dL POC Glucose (mg/dL) 141 H (75-99) mg/dL Total Protein 5.2 L (6.3-8.2) g/dL Albumin 3.0 L (3.5-5.0) g/dL 11/12/16 Range/Units 12:10 RBC (4.30-5.90) m/uL Hgb (13.0-17.5) gm/dL Hct (39.0-53.0) % Sodium (137-145) mmol/L Chloride (98-107) mmol/L Glucose (74-99) mg/dL POC Glucose (mg/dL) 113 H (75-99) mg/dL Total Protein (6.3-8.2) g/dL Albumin (3.5-5.0) g/dL Assessment and Plan Plan: CAD s/p CABG x 3 vessel POD #4: pt doing well, expect d/c home soon HTN: monitor hyperlipidemia: cont lipitor will reeavulate in the next 24 hrs. outpt f/u planned
[2016-11-12] MEDS: LOSARTAN 25 MG TAB PO SCH (15:22)
--- NOTE | 2016-11-12 16:07 | P.PN ---
Subjective Principal diagnosis: CABG This is a 61-year-old gentleman who is status post coronary bypass grafting surgery. He has a history of paroxysmal atrial fibrillation, nonischemic cardiomyopathy, patient underwent coronary artery bypass grafting surgery, he was seen and examined today, overall doing very well. He's been up ambulating in the [place] without any difficulty. Hemodynamically stable. Sodium 128 today, BUN 14, creatinine 0.8. Hemoglobin 7.8. Objective - Vital Signs Vital signs: Vital Signs Temp 96.7 F L 11/12/16 15:21 Pulse 92 11/12/16 15:21 Resp 17 11/12/16 15:21 BP 125/66 11/12/16 15:21 Pulse Ox 99 11/12/16 15:21 Intake & Output 11/11/16 11/12/16 11/12/16 18:59 06:59 18:59 Intake Total 960 20 540 Output Total 0 620 800 Balance 960 -600 -260 Weight 108.2 kg Intake: IV 20 0.9% NS FLUSH 20 Oral 960 540 Output: Chest Tube Drainage 0 70 LT pleural 0 70 Urine 550 800 Other: Voiding Method Toilet Toilet Toilet # Voids 1 1 ABP, PAP, CO, CI - Last Documented Arterial Blood Pressure 166/68 Pulmonary Artery Pressure 24/13 Cardiac Output 6.8 Cardiac Index 3.0 - Exam PHYSICAL EXAMINATION: HEENT: Head is atraumatic, normocephalic. Pupils equal, round. Neck is supple. There is no elevated jugular venous pressure. HEART EXAMINATION: Heart S1, S2 normal. No murmur or gallop heard. CHEST EXAMINATION: Lungs are clear with diminished air entry to bilateral bases. ABDOMEN: Soft, nontender. Bowel sounds are heard. No organomegaly noted. EXTREMITIES: 2+ peripheral pulses with no evidence of peripheral edema and no calf tenderness noted. NEUROLOGIC patient is awake, alert and oriented -3. . - Labs CBC & Chem 7: 11/12/16 06:05 11/12/16 06:01 Labs: Abnormal Lab Results - Last 24 Hours (Table) 11/11/16 11/11/16 11/12/16 Range/Units 16:32 20:59 02:07 RBC (4.30-5.90) m/uL Hgb (13.0-17.5) gm/dL Hct (39.0-53.0) % Sodium (137-145) mmol/L Chloride (98-107) mmol/L Glucose (74-99) mg/dL POC Glucose (mg/dL) 126 H 175 H 139 H (75-99) mg/dL Total Protein (6.3-8.2) g/dL Albumin (3.5-5.0) g/dL 11/12/16 11/12/16 11/12/16 Range/Units 06:01 06:05 06:10 RBC 2.59 L (4.30-5.90) m/uL Hgb 7.8 L (13.0-17.5) gm/dL Hct 22.9 L (39.0-53.0) % Sodium 128 L (137-145) mmol/L Chloride 94 L (98-107) mmol/L Glucose 125 H (74-99) mg/dL POC Glucose (mg/dL) 141 H (75-99) mg/dL Total Protein 5.2 L (6.3-8.2) g/dL Albumin 3.0 L (3.5-5.0) g/dL 11/12/16 Range/Units 12:10 RBC (4.30-5.90) m/uL Hgb (13.0-17.5) gm/dL Hct (39.0-53.0) % Sodium (137-145) mmol/L Chloride (98-107) mmol/L Glucose (74-99) mg/dL POC Glucose (mg/dL) 113 H (75-99) mg/dL Total Protein (6.3-8.2) g/dL Albumin (3.5-5.0) g/dL Assessment and Plan (1) Paroxysmal a-fib Status: Acute (2) S/P CABG (coronary artery bypass graft) Status: Acute (3) Hyperlipidemia Status: Acute (4) Hypertension Status: Acute Plan: From cardiology's perspective, we'll continue the patient on his current medications. Arrangements are being made for possible discharge home tomorrow. DNP note has been reviewed, I agree with a documented findings and plan of care. Patient was seen and examined.
[2016-11-12 16:49] LABS: Glucose,Whole Blood 127 mg/dL (75-99)
--- NOTE | 2016-11-12 17:58 | PN ---
Mr. Pena is a 61 year old male, status post coronary artery bypass grafting. He is doing well this morning, he is ambulating without difficulty, denying any chest pain. His breathing has been stable. He denies any dizziness, palpitations. He continues to be, at this time, on Aspirin once a day, Lipitor 40 mg daily, Plavix 75 mg daily, Insulin, Losartan 12-1/2 mg daily, Metoprolol tartrate 50 mg twice a day. PHYSICAL EXAMINATION: Blood pressure 116/60 with a heart rate in the 90s, lungs no wheezes. Heart: Regular rate and rhythm, S1, S2, no S3, no rub. Abdomen: Soft, nontender. Extremities: No significant edema. LAB DATA: BUN and creatine, 15 and 0.87, hemoglobin 8.7. IMPRESSION: 1. Status post coronary artery bypass grafting, stable. 2. Hyperlipidemia. 3. Hypertension. 4. History of non-ischemic cardiomyopathy. 5. Prior history of atrial fibrillation. RECOMMENDATIONS: He will continue present therapy, increase his level of activity, and depending on his progress, further recommendations will be made. ANDREW
[2016-11-12 20:45] LABS: Glucose,Whole Blood 135 mg/dL (75-99)
[2016-11-12] MEDS: INSULIN NPH 300 UNIT/3 ML VIAL SQ SCH (22:18)
[2016-11-12] MEDS: SENNOSIDES-DOCUSATE SODIUM 1 EACH TAB PO SCH (22:22)
[2016-11-13 01:10] VITALS: RESP 18
[2016-11-13] MEDS: HYDROcodone/APAP 5-325MG 1 EACH TAB PO PRN (01:55)
[2016-11-13 03:25] LABS: Glucose,Whole Blood 140 mg/dL (75-99)
[2016-11-13 05:48] LABS: Glucose,Whole Blood 131 mg/dL (75-99)
[2016-11-13] MEDS: INSULIN LISPRO (humaLOG) 300 UNIT/3 ML VIAL SQ SCH (05:50)
[2016-11-13 06:08] LABS: CH 29.9; CHCM 34.2; HCT 23.8 % (39.0-53.0); HDW 2.73; HGB 8.2 gm/dL (13.0-17.5); MCH 30.2 pg (25.0-35.0); MCHC 34.3 g/dL (31.0-37.0); MCV 88.1 fL (80.0-100.0); Mean Platelet Volume 6.8; RBC 2.71 m/uL (4.30-5.90); RDW 13.6 % (11.5-15.5); WBC 7.6 k/uL (3.8-10.6)
[2016-11-13] MEDS: PANTOPRAZOLE 40 MG TABLET PO SCH (06:21)
[2016-11-13 06:23] LABS: ALT 32 U/L (21-72); AST 28 U/L (17-59); Alkaline Phosphatase 59 U/L (38-126); Anion Gap 10 mmol/L; Blood Urea Nitrogen 12 mg/dL (9-20); Calcium 8.6 mg/dL (8.4-10.2); Carbon Dioxide 25 mmol/L (22-30); Chloride 97 mmol/L (98-107); Glucose 112 mg/dL (74-99); Non-African American GFR(MDRD) >60 (>60 ml/min/1.73 sqM); Sodium 132 mmol/L (137-145); Total Bilirubin 0.7 mg/dL (0.2-1.3); Total Protein 5.5 g/dL (6.3-8.2)
[2016-11-13] MEDS: INSULN ASP PRT/INSULIN ASPART 100 UNIT/ML 10 ML VIAL SQ SCH (07:00)
[2016-11-13] MEDS: NICOTINE 21MG/24HR PATCH TRANSDERM SCH (08:13)
[2016-11-13] MEDS: HEPARIN SODIUM,PORCINE 5,000 UNIT/ML 1 ML VIAL SQ SCH (08:14)
[2016-11-13] MEDS: METOPROLOL TARTRATE 50 MG TAB PO SCH (08:14)
[2016-11-13] MEDS: ATORVASTATIN 40 MG TAB PO SCH (08:14)
[2016-11-13] MEDS: CLOPIDOGREL 75 MG TAB PO SCH (08:14)
[2016-11-13] MEDS: ASPIRIN 325 MG TAB PO SCH (08:14)
--- NOTE | 2016-11-13 08:14 | XR ---
EXAMINATION TYPE: XR chest 2V DATE OF EXAM: 11/13/2016 COMPARISON: 11/12/2016 HISTORY: 61 year-old male post chest tube removal TECHNIQUE: Frontal and lateral views FINDINGS: Median sternotomy wires are present with post-CABG changes. The heart is borderline enlarged. Mild di ffuse interstitial prominence similar to slightly improved. Trace effusions remain on the lateral vie w. Left chest tube removed in the interval. Possible trace left apical pneumothorax versus summation artifact. Some patchy atelectasis at the cardiac apex. IMPRESSION: 1. Borderline cardiomegaly with residual mild pulmonary vascular congestion and trace effusions. 2. Summation artifact versus trace left apical pneumothorax. Attention on follow-up.
--- NOTE | 2016-11-13 10:10 | CONS ---
Mr. Pena is a 61-year-old male who was admitted to the hospital by Dr. Jensen to undergo coronary artery bypass grafting. The patient has been followed by Dr. Westfall and Dr. Felicia Mccullough. He has a known history of paroxysmal atrial fibrillation as well as history of nonischemic cardiomyopathy. He underwent cardiac catheterization, was found to have critical distal left main disease with mild disease in the LAD, circumflex and the right coronary artery. He underwent coronary artery bypass grafting by Dr. Jensen on the 08 of November with a GABY to the LAD, MAGANA to the obtuse marginal branch, ( ) graft with portion of the MAGANA from the right coronary artery to the first diagonal branch with Lau procedure, pulmonary vein ablation and ligation of the left atrial appendage. Patient has underwent the evaluation by Dr. Felicia Mccullough including the cardiac catheterization. His prior evaluation with the cardiac catheterization was done on this 02 of November. At that time, the ejection fraction by LV gram was 50% to 55%. His coronary risk factors are remarkable for hyperlipidemia. He is a smoker. He is hypertensive, nondiabetic. His medications as an outpatient included aspirin, Eliquis, Lipitor 40 mg daily , losartan 25 mg daily, metoprolol succinate 50 mg daily, spironolactone 25 mg daily. REVIEW OF SYSTEMS: RESPIRATORY SYSTEM: He has no recent wheezing. No cough. No history of obstructive lung disease. GI SYSTEM: No recent GI bleed. No peptic ulcer disease. SYSTEM: No dysuria or hematuria. NERVOUS SYSTEM: No history of stroke or seizure. PHYSICAL EXAMINATION: He is a 61-year-old male in no apparent distress. Blood pressure 110/70 with the heart rate in the 80s. HEAD: Normocephalic EYES: Sclerae anicteric. NECK: No bruit. LUNGS: With decreased air exchange in the bases. HEART: Regular rate and rhythm. S1, S2. No S3, no rub. ABDOMEN: Soft. Nontender. EXTREMITIES: Dressing in place. IMPRESSION: 1. Status post coronary artery bypass grafting. 2. Paroxysmal atrial fibrillation. 3. Prior history of nonischemic cardiomyopathy. 4. History of smoking. 5. Hyperlipidemia. RECOMMENDATIONS: From the cardiac standpoint, he is stable. Will continue present therapy and depending on his progress adjustment of his medical regimen will be done. [facility]
--- NOTE | 2016-11-13 10:41 | P.PN ---
Subjective Principal diagnosis: Coronary artery disease. Paroxysmal atrial fibrillation, hypertension, hyperlipidemia, obesity, nonischemic cardiomyopathy, tobacco abuse, in remission. POD #5 off-pump coronary artery bypass grafting 3 with right internal mammary artery graft to left anterior descending coronary artery, left internal mammary artery graft to obtuse marginal coronary artery, a jump graft with portion of left internal mammary artery from right internal mammary artery to first diagonal coronary artery, a modified Lau maze procedure with bilateral pulmonary vein ablation and ligation of left atrial appendage with a 40 mm AtriCure clip. Patient's currently sitting up in the chair in no acute distress. Denies chest pain, or shortness of breath. He is tolerating his breakfast. Has been ambulating in the hallway without complaints. He states that "he hopes he is being discharged home today". Objective - Vital Signs Vital signs: Vital Signs Temp 97.8 F 11/13/16 08:00 Pulse 82 11/13/16 08:00 Resp 18 11/13/16 08:00 BP 111/64 11/13/16 08:00 Pulse Ox 94 L 11/13/16 08:00 Intake & Output 11/12/16 11/13/16 11/13/16 18:59 06:59 18:59 Intake Total 540 120 240 Output Total 800 550 Balance -260 -430 240 Weight 105.8 kg Intake: Oral 540 120 240 Output: Urine 800 550 Other: Voiding Method Toilet Toilet Toilet # Voids 1 1 ABP, PAP, CO, CI - Last Documented Arterial Blood Pressure 166/68 Pulmonary Artery Pressure 24/13 Cardiac Output 6.8 Cardiac Index 3.0 - Constitutional General appearance: Present: cooperative, no acute distress - EENT ENT: Present: hearing grossly normal - Respiratory Details: His respirations are symmetrical and unlabored. He is currently on room air with an oxygen saturation of 94%. He is tolerating 1000 mL on his incentive spirometry. Reviewed with the patient the importance of using his incentive spirometry every hour while awake. The patient did demonstrate appropriate use of his incentive spirometry. His chest tubes were removed yesterday 2016. Dressings to his previous chest tube sites are clean dry and intact. Respiratory: bilateral: CTA (To his bilateral upper lobes), diminished (To his bilateral bases) - Cardiovascular Details: Negative for S3, gallop or murmur. His sternum in stable. His heart hugger is in place and he is demonstrating appropriate use of the heart hugger. He has knee-high LEANA hose and sequential compression devices in place to his bilateral lower extremities. His midline sternal incision is clean dry and well approximated. No drainage noted. Dermabond dressing clean dry and intact. Heart rate: 82 (Per remote telemetry) Rhythm: regular Heart sounds: normal: S1, S2 - Gastrointestinal Gastrointestinal Comment(s): Positive bowel sounds in all 4 quadrants. His last bowel movement yesterday 02/2017. General gastrointestinal: Present: normal bowel sounds, soft - Genitourinary Genitourinary Comment(s): Adequate urine output. Clear yellow urine. - Integumentary Integumentary Comment(s): Midline sternal incision clean dry and well approximated. No drainage noted. Dermabond dressing remains clean dry and intact. Heart hugger remains in place. Integumentary: Present: normal - Neurologic Neurologic: Present: CNII-XII intact - Musculoskeletal Musculoskeletal: Present: gait normal, strength equal bilaterally - Psychiatric Psychiatric: Present: A&O x's 3, appropriate affect, intact judgment & insight - Labs CBC & Chem 7: 11/13/16 05:38 11/13/16 05:38 Labs: Abnormal Lab Results - Last 24 Hours (Table) 11/12/16 11/12/16 11/12/16 Range/Units 12:10 16:44 20:43 RBC (4.30-5.90) m/uL Hgb (13.0-17.5) gm/dL Hct (39.0-53.0) % Sodium (137-145) mmol/L Chloride (98-107) mmol/L Glucose (74-99) mg/dL POC Glucose (mg/dL) 113 H 127 H 135 H (75-99) mg/dL Total Protein (6.3-8.2) g/dL Albumin (3.5-5.0) g/dL 11/13/16 11/13/16 11/13/16 Range/Units 03:23 05:38 05:38 RBC 2.71 L (4.30-5.90) m/uL Hgb 8.2 L (13.0-17.5) gm/dL Hct 23.8 L (39.0-53.0) % Sodium 132 L (137-145) mmol/L Chloride 97 L (98-107) mmol/L Glucose 112 H (74-99) mg/dL POC Glucose (mg/dL) 140 H (75-99) mg/dL Total Protein 5.5 L (6.3-8.2) g/dL Albumin 3.1 L (3.5-5.0) g/dL 11/13/16 Range/Units 05:47 RBC (4.30-5.90) m/uL Hgb (13.0-17.5) gm/dL Hct (39.0-53.0) % Sodium (137-145) mmol/L Chloride (98-107) mmol/L Glucose (74-99) mg/dL POC Glucose (mg/dL) 131 H (75-99) mg/dL Total Protein (6.3-8.2) g/dL Albumin (3.5-5.0) g/dL - Imaging and Cardiology Chest x-ray: report reviewed, image reviewed Assessment and Plan (1) History of atrial fibrillation Status: Acute (2) History of cardioversion Narrative/Plan: 6 weeks ago Status: Acute (3) Hyperlipidemia Status: Acute (4) Nonischemic cardiomyopathy Status: Acute (5) Obesity (BMI 30.0-34.9) Status: Acute (6) Paroxysmal a-fib Status: Acute (7) S/P CABG (coronary artery bypass graft) Status: Acute (8) Tobacco abuse, in remission Status: Acute Plan: 1. Continue aspirin, statin, Plavix, Cozaar, and Lopressor. 2. Encourage incentive spirometry use. Continue encouragement of some smoking cessation. 3. He will be discharged home today with Lasix 40 mg by mouth daily 5 days, with 20 mEq of potassium chloride daily 5 days. 4. Increase activity, ambulate in hallway. Physical therapy to follow. 5. GI/DVT prophylaxis. 6. Diabetic management per primary care service. 7. Ejection fraction preoperatively was 25-30%. Repeat echo done this morning , EF 45-50%, no life vest necessary. 8. Discharge home today with [facility] to follow. Time with Patient: Greater than 30
--- NOTE | 2016-11-13 11:22 | P.DS ---
Providers Date of admission: 11/08/16 07:24 Expected date of discharge: 11/13/16 Attending physician: Javan Jensen Consults: 11/08/16 17:46 Consult Physician Routine Consulting Provider: Danish Dubois Jr Consult Reason/Comments: medical managment Do you want consulting provider notified?: Yes Consult Physician Routine Consulting Provider: Marya Iniguez Consult Reason/Comments: Welder Operator Consult: post cardiac surgery Do you want consulting provider notified?: Yes Consult Physician Routine Consulting Provider: Dwight Westfall Consult Reason/Comments: Route Delivery Service Driver Consult: post cardiac surgery Do you want consulting provider notified?: Already Contacted Primary care physician: Danish Dubois - Discharge Diagnosis(es) (1) History of atrial fibrillation Current Visit: Yes Status: Acute (2) History of cardioversion Current Visit: Yes Status: Acute (3) Hyperlipidemia Current Visit: Yes Status: Acute (4) Nonischemic cardiomyopathy Current Visit: Yes Status: Acute (5) Obesity (BMI 30.0-34.9) Current Visit: Yes Status: Acute (6) Paroxysmal a-fib Current Visit: Yes Status: Acute (7) S/P CABG (coronary artery bypass graft) Current Visit: Yes Status: Acute (8) Tobacco abuse, in remission Current Visit: Yes Status: Acute Hospital Course: FINAL DIAGNOSIS: 1.[ Symptomatic multivessel coronary artery disease.] 2.[ Paroxysmal atrial fibrillation, with history of cardioversion] 3.[ Hypertension] 4.[ Hyperlipidemia] 5.[ Non-ischemic cardiomyopathy] 6.[ Obesity BMI 31.6 ] 7.[ History of nicotine dependence] 8.[ History of Systolic heart failure, ventricular systolic ejection fraction 25-30% preoperatively, postoperative ejection fraction 45-50%] PRINCIPAL PROCEDURE: 1.[ Elective off pump coronary artery bypass grafting 3 with placement of his right internal mammary artery graft to his left anterior descending coronary artery, left internal mammary artery graft to his obtuse marginal coronary artery, a jump graft with portion of the left internal mammary artery from his right internal mammary artery to his first diagonal coronary artery.] 2.[ Modified Lau maze procedure with bilateral pulmonary vein ablation and ligation of his left atrial appendage with a 40 mm Atriclip.] HISTORY OF PRESENT ILLNESS: [This is a 57-year-old gentleman who is followed by Dr. Danish Dubois on an outpatient basis. Recently, the patient was undergoing a routine physical examination and was found to be in atrial fibrillation with rapid ventricular response on a 12-lead EKG. He was subsequently [facility] workup and evaluation. On the patient underwent a 2-D echocardiogram which did show the patient to be in atrial fibrillation, mild aortic regurgitation, trace mitral regurgitation, mild tricuspid regurgitation, trace pulmonic regurgitation, and an overall left ventricular systolic function to be severely impaired with an ejection fraction between 25 and 30%. He underwent a Lexiscan stress test on which showed possible mild ischemia in the inferior and inferior septal wall. The patient did deny any chest discomfort or shortness of breath but due to his atrial fibrillation with RVR and positive stress test results he was encouraged to undergo a cardiac catheterization. On 11/02/2016 the patient underwent an elective heart catheterization which demonstrated a 65% stenosis to his left main coronary artery, a 35% stenosis to his right coronary artery, a 30% stenosis to his proximal left anterior descending coronary artery, and a 30% stenosis to his mid left anterior descending coronary artery. Also during heart catheterization a left ventriculogram was completed which showed him to have an ejection fraction of 50%. Subsequently the patient was referred to Dr. Jensen from cardiothoracic surgery who reviewed the results of the heart catheterization with the patient and recommended the patient undergo an elective coronary artery bypass grafting surgery.] HOSPITAL COURSE:[ The patient was admitted to the hospital and after obtaining consent was taken to the operating room where Dr. Javan Jensen performed an elective off pump coronary artery bypass grafting 3 with placement of his right internal mammary artery graft to his left anterior descending coronary artery, a left internal mammary artery graft to his obtuse marginal coronary artery, and a graft with a portion of his left internal mammary artery from his right internal mammary artery to his first diagonal coronary artery. He also performed a modified Lau maze procedure with bilateral pulmonary vein ablation and ligation of his left atrial appendage using a 40 mm Atriclip. The patient was then transferred to the cardiovascular intensive care unit where he was recovered, monitored hemodynamically, and where he progressed cardiac rehabilitation phase 1. The patient was extubated on 11/08/2016 at 2350. The patient was subsequently transferred to [address] [place] [address] for further monitoring and rehabilitation. Discharge instructions were reviewed with the patient and his with written and verbal instructions regarding his medications, activity restrictions and the importance of smoking cessation and discussed.] COMPLICATIONS: [There were no postoperative complications.] CONSULTATIONS: 1.[ Dr. Westfall for cardiology management.] 2.[ Dr. Danish Dubois for medical management.] 3.[ Dr. Iniguez for pulmonary and ventilator management.] DISCHARGE INSTRUCTIONS: 1. No driving for 4 weeks, or until physician gives their ok. 2. The patient should sleep in their own bed, no medical bed needed. 3. Stairs are not an issue. If the bedroom is upstairs, it is advised that the patient go up at night and down in the morning for the first week. Go slowly, using handrail and take 1 step at a time. 4. LEANA hose are to be worn for 30 days or until physician discontinues. 5. Heart hugger is to be worn 100% of the time until physician discontinues.( except when showering) 6. No lifting, pushing, or pulling more than 10 pounds for 12 weeks. The physician will advise of any restriction changes. 7. The patient is expected to continue the prescribed walking program. 8. Continue pain control per as needed orders. 9. Continue with incentive spirometry and splinting/heart hugger until otherwise directed by the physician. 10. Must shower daily using liquid antibacterial soap and a separate white washcloth for each individual incision. 11. Routine sternal incision care, no ointments, lotions or powders on the incisions. 12. Please notify surgeon/nurse practitioner for temperature greater than 101F or purulent drainage from incisions 13. Prescriptions for first 30 days given per cardiac surgery service. After 30 days, all prescription refills obtained through cardiology/primary care physician. [facility] home health care to follow. HOME HEALTH SERVICES TO PROVIDE: RN SKILLED HOME CARE SERVICES FOR POST-OP SURGICAL PATIENTS WITH THE FOLLOWING: Coronary Artery Bypass Surgery (CABG), Mitral Valve Replacement/ Repair ( MVR), Aortic Valve Replacement/Repair (AVR) RN TO CONTINUE EDUCATION FROM ``ROAD TO A HEALTH HEART PATIENT EDUCATION MANUAL" (GIVEN TO PATIENT IN THE HOSPITAL) MEDICATION RECONCILIATION WITH EDUCATION NEEDED ON FIRST HOME VISIT EMPHASIZE IMPORTANCE OF WEARING BREAST SUPPORT/HEART HUGGER ENCOURAGE USE OF INCENTIVE SPIROMETER 10 X EVERY HOUR WHILE AWAKE ENCOURAGE UTILIZATION OF LOWER EXTREMITY COMPRESSION STOCKINGS/LEANA HOSE and ELEVATE LEGS ABOVE LEVEL OF HEART WHILE AT REST. ENCOURAGE AMBULATION 3-5x/day INCREASING TOLERATES, WHILE AVOID EXTREMES IN TEMPERATURE FREQUENCY: RN TO OPEN THE PATIENT WITHIN 24 HOURS OF DISCHARGE FROM THE HOSPITAL WITH TELEHEALTH INSTALLED AT [facility], RN TO VISIT 2-3 X A WEEK FOR 4 WEEKS ESTABLISHED BY PATIENT NEEDS. LABORATORY: CBC, CMP TO BE DRAWN ON THE THIRD DAY HOME, 11/16/2016 (RAN STAT ) FAX RESULTS TO [phone]. TELEHEALTH PARAMETERS: WEIGHT: NOTIFY MD OF WEIGHT GAIN OF 2 LBS IN 24 HOURS OR 5 LBS IN ONE WEEK HR: NOTIFY MD OF HR <55 BPM OR HR>100 BPM BP: NOTIFY MD IF BP <90/55 OR BP>140/100 O2 SAT: NOTIFY MD IF PO2<93% ON ROOM AIR SEND TELEHEALTH REPORT TO BREWING TECHNICIAN AND CARDIOVASCULAR SURGEON THE FIRST WEEK OF CARE AND THEN BI-WEEKLY. PLEASE ADDITIONALLY COMMUNICATE ANY ABNORMALS AND NEW FINDINGS TO THE SURGEONS OFFICE. Plan - Discharge Summary New Discharge Prescriptions: New Aspirin 325 mg PO DAILY #30 tab Clopidogrel [Plavix] 75 mg PO DAILY #30 tab Furosemide [Lasix] 40 mg PO DAILY #5 tablet HYDROcodone/APAP 5-325MG [[place] 5-325] 1 - 2 each PO Q6HR PRN #120 tab PRN Reason: Severe Pain Metoprolol Tartrate [Lopressor] 50 mg PO BID #60 tab Pantoprazole [Protonix] 40 mg PO AC-BRKFST #30 tab Potassium Chloride ER [K-Dur 20] 20 meq PO DAILY #5 tab Sennosides-Docusate Sodium [Senokot-S] 2 each PO HS tab Continue Atorvastatin [Lipitor] 40 mg PO DAILY Multivitamins, Thera [Multivitamin (formulary)] 1 tab PO DAILY Nicotine 21Mg/24Hr Patch [Habitrol] 1 patch TRANSDERM DAILY Changed Losartan Potassium [Cozaar] 12.5 mg PO HS #0 Discontinued Aspirin EC [Ecotrin Low Dose] 81 mg PO DAILY Metoprolol Succinate [Toprol XL] 50 mg PO DAILY Spironolactone [Aldactone] 25 mg PO DAILY #1 tablet Nitroglycerin Sl Tabs [Nitrostat] 0.4 mg SUBLINGUAL Q5M PRN #25 tab PRN Reason: Chest Pain Discharge Medication List Atorvastatin [Lipitor] 40 mg PO DAILY 08/22/16 [History] Multivitamins, Thera [Multivitamin (formulary)] 1 tab PO DAILY 09/14/16 [History ] Nicotine 21Mg/24Hr Patch [Habitrol] 1 patch TRANSDERM DAILY 11/07/16 [History] Aspirin 325 mg PO DAILY #30 tab 11/13/16 [Rx] Clopidogrel [Plavix] 75 mg PO DAILY #30 tab 11/13/16 [Rx] Furosemide [Lasix] 40 mg PO DAILY #5 tablet 11/13/16 [Rx] HYDROcodone/APAP 5-325MG [[place] 5-325] 1 - 2 each PO Q6HR PRN #120 tab 11/13/16 [Rx] Losartan Potassium [Cozaar] 12.5 mg PO HS #0 11/13/16 [Rx] Metoprolol Tartrate [Lopressor] 50 mg PO BID #60 tab 11/13/16 [Rx] Pantoprazole [Protonix] 40 mg PO AC-BRKFST #30 tab 11/13/16 [Rx] Potassium Chloride ER [K-Dur 20] 20 meq PO DAILY #5 tab 11/13/16 [Rx] Sennosides-Docusate Sodium [Senokot-S] 2 each PO HS tab 11/13/16 [Rx] Follow up Appointment(s)/Referral(s): Marya Iniguez MD [STAFF PHYSICIAN] - 1 Week Dwight Westfall MD [STAFF PHYSICIAN] - 3 Weeks Maryjane Raya NPC [Nurse Practitioner] - 11/16/16 11:30 am Danish Dubois Jr, DO [Primary Care Provider] - 1 Week Javan Jensen MD [STAFF PHYSICIAN] - 12/03/16 1:30 pm [facility], [NON-STAFF] - As Needed Ambulatory/Diagnostic Orders: Complete Blood Count w/diff [LAB.AMB] Time Frame: 3 Days, Location: Determined By Patient Comprehensive Metabolic Panel [LAB.AMB] Time Frame: 3 Days, Location: Determined By Patient Patient Instructions/Handouts: How to Stop Smoking (DC), Cigarette Smoking and Your Health (GEN)
--- NOTE | 2016-11-13 11:50 | P.PN ---
Subjective Principal diagnosis: CABG This is a 61-year-old gentleman who is status post coronary bypass grafting surgery. He has a history of paroxysmal atrial fibrillation, nonischemic cardiomyopathy, patient underwent coronary artery bypass grafting surgery, he was seen and examined today, overall doing very well. He's been up ambulating in the [place] without any difficulty. Hemodynamically stable. Sodium 128 today, BUN 14, creatinine 0.8. Hemoglobin 7.8. 11/13/2016 Patient seen and examined this morning, feels well, hemodynamically stable. He will be discharged home today. We will make him a follow-up appointment to see Dr. Westfall in the office 2 weeks post discharge. Objective - Vital Signs Vital signs: Vital Signs Temp 97.8 F 11/13/16 08:00 Pulse 82 11/13/16 08:00 Resp 18 11/13/16 08:00 BP 111/64 11/13/16 08:00 Pulse Ox 94 L 11/13/16 08:00 Intake & Output 11/12/16 11/13/16 11/13/16 18:59 06:59 18:59 Intake Total 540 120 240 Output Total 800 550 Balance -260 -430 240 Weight 105.8 kg Intake: Oral 540 120 240 Output: Urine 800 550 Other: Voiding Method Toilet Toilet Toilet # Voids 1 1 ABP, PAP, CO, CI - Last Documented Arterial Blood Pressure 166/68 Pulmonary Artery Pressure 24/13 Cardiac Output 6.8 Cardiac Index 3.0 - Exam PHYSICAL EXAMINATION: HEENT: Head is atraumatic, normocephalic. Pupils equal, round. Neck is supple. There is no elevated jugular venous pressure. HEART EXAMINATION: Heart S1, S2 normal. No murmur or gallop heard. CHEST EXAMINATION: Lungs are clear with diminished air entry to bilateral bases. ABDOMEN: Soft, nontender. Bowel sounds are heard. No organomegaly noted. EXTREMITIES: 2+ peripheral pulses with no evidence of peripheral edema and no calf tenderness noted. NEUROLOGIC patient is awake, alert and oriented -3. . - Labs CBC & Chem 7: 11/13/16 05:38 11/13/16 05:38 Labs: Abnormal Lab Results - Last 24 Hours (Table) 11/12/16 11/12/16 11/12/16 Range/Units 12:10 16:44 20:43 RBC (4.30-5.90) m/uL Hgb (13.0-17.5) gm/dL Hct (39.0-53.0) % Sodium (137-145) mmol/L Chloride (98-107) mmol/L Glucose (74-99) mg/dL POC Glucose (mg/dL) 113 H 127 H 135 H (75-99) mg/dL Total Protein (6.3-8.2) g/dL Albumin (3.5-5.0) g/dL 11/13/16 11/13/16 11/13/16 Range/Units 03:23 05:38 05:38 RBC 2.71 L (4.30-5.90) m/uL Hgb 8.2 L (13.0-17.5) gm/dL Hct 23.8 L (39.0-53.0) % Sodium 132 L (137-145) mmol/L Chloride 97 L (98-107) mmol/L Glucose 112 H (74-99) mg/dL POC Glucose (mg/dL) 140 H (75-99) mg/dL Total Protein 5.5 L (6.3-8.2) g/dL Albumin 3.1 L (3.5-5.0) g/dL 11/13/16 Range/Units 05:47 RBC (4.30-5.90) m/uL Hgb (13.0-17.5) gm/dL Hct (39.0-53.0) % Sodium (137-145) mmol/L Chloride (98-107) mmol/L Glucose (74-99) mg/dL POC Glucose (mg/dL) 131 H (75-99) mg/dL Total Protein (6.3-8.2) g/dL Albumin (3.5-5.0) g/dL Assessment and Plan (1) Paroxysmal a-fib Status: Acute (2) S/P CABG (coronary artery bypass graft) Status: Acute (3) Hyperlipidemia Status: Acute (4) Hypertension Status: Acute Plan: From cardiology's perspective, we'll continue the patient on his current medications. follow-up appointment with Dr. Westfall in 2 weeks. DNP note has been reviewed, I agree with a documented findings and plan of care. Patient was seen and examined.
[2016-11-13 12:01] VITALS: BP 106/64; PULSE 78; TEMP 98
--- NOTE | 2016-11-14 16:14 | CDI ---
In responding to this query, please exercise your independent professional judgment. The [facility] Coding Staff and Clinical Documentation Specialists appreciate your assistance in clarifying documentation, maintaining compliance with coding guidelines, accurately documenting patients condition and capturing severity of illness. The fact that a question is asked does not imply that any particular answer is desired or expected. Communication forms are a method of clarifying documentation and are not made part of the Legal Health Record. Thank you in advance for your clarification. Last Revision, July 2015 [facility] [place] [address] [facility] [place] [address] Documentation Clarification Form Date: 11/14/2016 3:52:00 PM From: Kyra Fab Admit Date: 11/08/2016 7:24:00 AM Patient Name: Michael Pena Visit Number: [id number] Discharge Date: 11/13/16 Dr. Javan Jensen 57 year old male underwent elective off pump coronary artery bypass grafting X3 , modified Lau maze procedure and ligation of left atrial appendage with Articlip. 11/[address] Iniguez states "Continues to do poorly with incentive spirometry, chest x-ray is showing mostly postoperative changes and by basilar atelectasis." Per 11/[address] Iniguez "Reevaluated ..., patient remains on nasal cannula, )2 sat is excellent, CXR showed bibasilar atelectasis, patient is asymptomatic still doing poorly with incentive spirometry." "Patient denies any shortness of breath, no cough, no wheezing, no chest pain. Please clarify if the post-operative atelectasis is: An expected post-procedural or post-surgical condition Integral to the procedure Inherent to the procedure An unexpected post-procedural or post-surgical condtion related to surgical care Other, please specify Clinically unable to determine Please document your response as an addendum in your discharge summary, along with its associated clinical indicators (i.e., signs, symptoms, findings, treatments, monitoring). If this condition was ruled out or documented in error, please indicate in your progress notes and/or discharge summary. FYI: Press F11 to launch patient chart Place X here if this finding has no clinical significance, is not applicable or if you are not able to provide any additional documentation. AMY To, [facility], [facility] Certified I-10 Medical Appointment Clerk/Metal Flow Coordinator/Medical Appointment Clerk II If you have any questions or concerns please contact Karin Franco, Director Of Sustainable Design, [facility] [place] @ [phone] [facility]
--- NOTE | 2016-11-23 08:01 | CDI ---
In responding to this query, please exercise your independent professional judgment. The [facility] Coding Staff and Clinical Documentation Specialists appreciate your assistance in clarifying documentation, maintaining compliance with coding guidelines, accurately documenting patients condition and capturing severity of illness. The fact that a question is asked does not imply that any particular answer is desired or expected. Communication forms are a method of clarifying documentation and are not made part of the Legal Health Record. Thank you in advance for your clarification. Last Revision, July 2015 [place] [address] [place] [address] Documentation Clarification Form Date: 11/14/2016 3:52:00 PM From: Kyra Fab Admit Date: 11/08/2016 7:24:00 AM Patient Name: Michael Pena Visit Number: [id number] Discharge Date: 11/13/16 Dr. Marya Iniguez 57 year old male underwent elective off pump coronary artery bypass grafting X3 , modified Lau maze procedure and ligation of left atrial appendage with Articlip. 11/[address] Iniguez states "Continues to do poorly with incentive spirometry, chest x-ray is showing mostly postoperative changes and by basilar atelectasis." Per 11/[address] Iniguez "Reevaluated ..., patient remains on nasal cannula, )2 sat is excellent, CXR showed bibasilar atelectasis, patient is asymptomatic still doing poorly with incentive spirometry." "Patient denies any shortness of breath, no cough, no wheezing, no chest pain. Please clarify if the post-operative atelectasis is: An expected post-procedural or post-surgical condition Integral to the procedure Inherent to the procedure An unexpected post-procedural or post-surgical condtion related to surgical care Other, please specify expected post surgical finding Clinically unable to determine Please document your response as an addendum in your discharge summary. If this condition was ruled out or documented in error, please indicate in your progress notes and/or discharge summary. FYI: Press F11 to launch patient chart Place X here if this finding has no clinical significance, is not applicable or if you are not able to provide any additional documentation. If you have a question about this query, please contact Karin Franco, Floor Waxer, [facility] at [phone] [facility] 8am and 5pm. [facility]
--- NOTE | 2016-11-30 09:18 | CDI ---
In responding to this query, please exercise your independent professional judgment. The [facility] Coding Staff and Clinical Documentation Specialists appreciate your assistance in clarifying documentation, maintaining compliance with coding guidelines, accurately documenting patients condition and capturing severity of illness. The fact that a question is asked does not imply that any particular answer is desired or expected. Communication forms are a method of clarifying documentation and are not made part of the Legal Health Record. Thank you in advance for your clarification. Last Revision, July 2015 [place] [address] [facility] [place] [place] [address] Documentation Clarification Form Date: 11/14/2016 3:52:00 PM From: Kyra Fab Admit Date: 11/08/2016 7:24:00 AM Patient Name: Michael Pena Visit Number: [id number] Discharge Date: 11/13/16 Dr. Marya Iniguez 57 year old male underwent elective off pump coronary artery bypass grafting X3 , modified Lau maze procedure and ligation of left atrial appendage with Articlip. 11/[address] Iniguez states "Continues to do poorly with incentive spirometry, chest x-ray is showing mostly postoperative changes and by basilar atelectasis." Per 11/[address] Iniguez "Reevaluated ..., patient remains on nasal cannula, )2 sat is excellent, CXR showed bibasilar atelectasis, patient is asymptomatic still doing poorly with incentive spirometry." "Patient denies any shortness of breath, no cough, no wheezing, no chest pain. Please clarify if the post-operative atelectasis is: An post-procedural or post-surgical condition Integral to the procedure Inherent to the procedure An unexpected post-procedural or post-surgical condtion related to surgical care Other, please specify addendum:expected post surgical Clinically unable to determine Please document your response as an addendum in your progress note. If this condition was ruled out or documented in error, please indicate in your progress notes and/or discharge summary. FYI: Press F11 to launch patient chart If you have a question about this query, please contact Karin Franco, Oil Transport Driver, [facility] [place] at [phone] betweeen 8am and 5pm. [facility]
--- NOTE | 2016-12-04 08:08 | CDI ---
In responding to this query, please exercise your independent professional judgment. The [facility] Coding Staff and Clinical Documentation Specialists appreciate your assistance in clarifying documentation, maintaining compliance with coding guidelines, accurately documenting patients condition and capturing severity of illness. The fact that a question is asked does not imply that any particular answer is desired or expected. Communication forms are a method of clarifying documentation and are not made part of the Legal Health Record. Thank you in advance for your clarification. Last Revision, July 2015 [place] [address] [facility] [place] [address] Documentation Clarification Form Date: 11/14/2016 3:52:00 PM From: Kyra Fab Admit Date: 11/08/2016 7:24:00 AM Patient Name: Michael Pena Visit Number: [id number] Discharge Date: 11/13/16 Dr. Marya Iniguez 57 year old male underwent elective off pump coronary artery bypass grafting X3 , modified Lau maze procedure and ligation of left atrial appendage with Articlip. 11/[address] Iniguez states "Continues to do poorly with incentive spirometry, chest x-ray is showing mostly postoperative changes and by basilar atelectasis." Per 11/[address] Iniguez "Reevaluated ..., patient remains on nasal cannula, )2 sat is excellent, CXR showed bibasilar atelectasis, patient is asymptomatic still doing poorly with incentive spirometry." "Patient denies any shortness of breath, no cough, no wheezing, no chest pain. Please clarify if the post-operative atelectasis is: An expected post-procedural or post-surgical condition Integral to the procedure Inherent to the procedure An unexpected post-procedural or post-surgical condition related to surgical care Other, please specify Clinically unable to determine Please document your response as an addendum in your last progress note. If this condition was ruled out or documented in error, please indicate in your progress notes and/or discharge summary. FYI: Press F11 to launch patient chart If you have a question about this query, please contact Karin Biskner, Dairy Equipment Mechanic, [facility] [place] at [phone] betweeen 8am and 5pm. [facility]
--- NOTE | 2016-12-04 12:57 | P.PN ---
Progress Note - Text addendum:the atelectasis mentioned im my notes is expected post operative
== END 2016-11-13 12:01 | disposition home health service (06) | DRG 229 ==
LOC: 2ORMAIN 07:24 → 6ICU 17:46 → 6SEL 11-10 14:10
PROVIDERS: ADMIT Thoracic Surgery (Cardiothoracic Vascular Surgery); ATTEND Thoracic Surgery (Cardiothoracic Vascular Surgery)
PROC: 02L70CK Occlusion of Left Atrial Appendage with Extraluminal Device, Open Approach (ICD-10-PCS; 2016-11-08)
PROC: B24BZZ4 Ultrasonography of Heart with Aorta, Transesophageal (ICD-10-PCS; 2016-11-08)
PROC: 02580ZZ Destruction of Conduction Mechanism, Open Approach (ICD-10-PCS; principal; 2016-11-08 10:00)
PROC: 02100Z9 Bypass Coronary Artery, One Artery from Left Internal Mammary, Open Approach (ICD-10-PCS; 2016-11-08 10:00)
PROC: 02110Z8 Bypass Coronary Artery, Two Arteries from Right Internal Mammary, Open Approach (ICD-10-PCS; 2016-11-08 10:00)
DX: I25.10 Atherosclerotic heart disease of native coronary artery without angina pectoris (principal); I50.22 Chronic systolic (congestive) heart failure; I11.0 Hypertensive heart disease with heart failure; I42.9 Cardiomyopathy, unspecified; J98.11 Atelectasis; I48.0 Paroxysmal atrial fibrillation; I35.1 Nonrheumatic aortic (valve) insufficiency; E78.5 Hyperlipidemia, unspecified; E66.9 Obesity, unspecified; F17.201 Nicotine dependence, unspecified, in remission; Z98.42 Cataract extraction status, left eye; Z98.41 Cataract extraction status, right eye; Z82.49 Family history of ischemic heart disease and other diseases of the circulatory system; Z79.82 Long term (current) use of aspirin; Z79.899 Other long term (current) drug therapy
CPT/HCPCS: 36600; 36620; 71010; 71020; 80048; 80053; 82330; 82805; 83036; 83735; 84100; 85025; 85027; 85520; 85610; 85730; 86850; 86891; 86900; 86901; 86920; 93306; 94002; 94640; 94760

== ENCOUNTER → 2016-11-16 | Outpatient (CLI) | payer BC ==
[2016-11-16 12:13] LABS: CH 29.6; CHCM 33.2; HCT 27.4 % (39.0-53.0); HDW 3.21; HGB 9.2 gm/dL (13.0-17.5); Hypochromasia Slight; MCH 30.1 pg (25.0-35.0); MCHC 33.6 g/dL (31.0-37.0); MCV 89.7 fL (80.0-100.0); Mean Platelet Volume 6.7; RBC 3.06 m/uL (4.30-5.90); RDW 14.3 % (11.5-15.5); WBC 10.6 k/uL (3.8-10.6)
[2016-11-16 13:07] LABS: ALT 49 U/L (21-72); AST 22 U/L (17-59); Alkaline Phosphatase 74 U/L (38-126); Anion Gap 12 mmol/L; Blood Urea Nitrogen 15 mg/dL (9-20); Calcium 9.2 mg/dL (8.4-10.2); Carbon Dioxide 24 mmol/L (22-30); Chloride 98 mmol/L (98-107); Glucose 125 mg/dL (74-99); Non-African American GFR(MDRD) >60 (>60 ml/min/1.73 sqM); Potassium 5.2 mmol/L (3.5-5.1); Sodium 134 mmol/L (137-145); Total Bilirubin 0.5 mg/dL (0.2-1.3); Total Protein 6.1 g/dL (6.3-8.2)
== END | disposition home or self-care (01) ==
LOC: LABWHC1 11:46
PROVIDERS: ATTEND Thoracic Surgery (Cardiothoracic Vascular Surgery)
DX: Z48.812 Encounter for surgical aftercare following surgery on the circulatory system (principal)
CPT/HCPCS: 36415; 80053; 85027

== ENCOUNTER → 2018-10-14 | Outpatient (CLI) | payer OTHER ==
--- NOTE | 2018-10-14 16:06 | CT ---
EXAMINATION TYPE: CT angio neck DATE OF EXAM: 10/14/2018 HISTORY: carotid stenosis COMPARISON: NONE CT DLP: 464 mGycm. Automated Exposure Control for Dose Reduction was Utilized. TECHNIQUE: CTA scan of the neck is performed with IV Contrast, patient injected with 50 mL of Isovue 370, axial images are obtained, coronal and sagittal reformatted images are reviewed. Three-D recons tructed images are created on an independent workstation and reviewed. FINDINGS: Carotid/Vascular Structures: Mild calcified plaque in aortic arch is seen. There is normal three-vess el origin from the aortic arch with mild calcified plaque left supraclinoid segment. No significant s tenosis is present. Right common carotid artery shows normal origin from right brachiocephalic artery . There is no significant plaque or stenosis up to carotid bulb. There is moderate to severe mixed pl aque in the proximal right internal carotid artery shortly after bulb causing significant stenosis es timated 90-95%. Remainder of right internal carotid artery shows no significant focal stenosis. Right external carotid artery is patent without significant stenosis. Left common carotid artery shows no significant plaque or stenosis. There is moderate to severe mixed plaque in the proximal left internal carotid artery with significant stenosis estimated 90-99% due t o noncalcified plaque shortly after its origin. Remainder of left internal carotid artery shows no si gnificant stenosis. Left external carotid artery shows no significant plaque or stenosis. There is codominant vertebral basilar system. Vertebral arteries are patent to basilar junction. Other: Post CABG changes with mediastinal clips and sternal wires is partially imaged. There is moderate disc space narrowing and spurring C5-C6 and C6-C7 levels. IMPRESSION: Severe plaque bilateral proximal internal carotid arteries causing severe stenosis estima stephanie 90-99% slightly more prominent on the left versus right neck. Advise neurosurgical vascular refer ral for further workup and/or treatment.
== END | disposition home or self-care (01) ==
LOC: RADCTMAIN 13:51
PROVIDERS: ATTEND Internal Medicine Clinical Cardiac Electrophysiology
DX: I65.23 Occlusion and stenosis of bilateral carotid arteries (principal)
CPT/HCPCS: 82565; 84520; 70498; 36415; Q9967

== ENCOUNTER → 2021-03-01 | Outpatient (CLI) | payer MEDICARE, OTHER ==
--- NOTE | 2021-03-08 14:34 | P.ARTDOP ---
Arterial Doppler LOWER EXTREMITY ARTERIAL DOPPLER: DATE OF SERVICE: 03/01/2021 Reason for study: Right leg pain. Doppler waveforms: Multiphasic bilaterally throughout. Pulse volume recording: []. Pressure gradients: None. Ankle-brachial indices: Greater than 1 bilaterally. Toe brachial indices: 0.77 on the right, 0.66 on the left Impression: Normal study.
== END | disposition home or self-care (01) ==
LOC: RADUSWWP 08:44
PROVIDERS: ATTEND Family Medicine
DX: M79.604 Pain in right leg (principal)
CPT/HCPCS: 93922

== ENCOUNTER → 2021-11-14 | Outpatient (CLI) | payer MEDICARE, OTHER ==
--- NOTE | 2021-11-15 07:06 | MR ---
EXAMINATION TYPE: MR Prostate wo/w con DATE OF EXAM: 11/14/2021 COMPARISON: None. INDICATION: Elevated PSA PSA: 4.34 ng/ml on June 23, 2021 Recent Biopsy and Date: None Pathology Report (If Applicable): n/a TECHNIQUE: Examination was performed using a 3T MRI without an endorectal coil. Multiparametric imaging was perf ormed with T2 mutliplanar sequences, axial diffusion weighted imaging and dynamic contrast enhanced i maging, utilizing 9 mL intravenous Gadavist gadolinium contrast. FINDINGS: There is no clinically significant cancer identified. PROSTATE VOLUME: 4.2 cm SI x 3.9 cm AP x 4.8 cm LR Vol= 41.17 cc Predicted PSA equals 4.94 PSA DENSITY: 0.11 ng/ml/cc Slightly enlarged prostate gland is present. Enlarged peripheral zone. Right prostate base peripheral zone has 1.8 x 1.0 area of mild to moderate hypointensity and ADC mapping that is isointense on diff usion weighted imaging with marked diminished T2 signal. Dynamic postcontrast imaging shows more ney gn gradual type enhancement predominantly at this level. There is however some heterogeneous areas of washout involving the anterior right lateral ap near axial image 21 making this area more suspicious . Centrally transitional zone is heterogeneous without indistinct or distinct T2 hypointense nodule. No restricted diffusion. Seminal vesicles symmetric and within normal limits. Urinary bladder shows mild wall thickening and b ladder wall trabeculation. No concerning pelvic fluid collection. No suspicious bowel dilatation. There is disc space narrowing with heterogeneous Modic type II endplate changes right L4-L5 level. Sm all symmetric hip joint effusions presumed physiologic are present. Slightly prominent bilateral groi n lymph nodes incidentally noted. IMPRESSION: Area of concern greatest right apex as detailed above. Highest Assessment Category: 4 MRI Stage: T0 N0 M0 based on review of pelvic images. False negative rates for MRI range from 5-20% depending on risk profile. Advise prostate biopsy with additional sampling targeting right apex. Assessment Categories: 1 ? Very low (clinically significant cancer is highly unlikely to be present) 2 ? Low (clinically significant cancer is unlikely to be present) 3 ? Intermediate (the presence of clinically significant cancer is equivocal) 4 ? High (clinically significant cancer is likely to be present) 5 ? Very high (clinically significant cancer is highly likely to be present)
== END | disposition home or self-care (01) ==
LOC: RADMRIMAIN 06:41
PROVIDERS: ATTEND Urology
DX: R97.20 Elevated prostate specific antigen [PSA] (principal)
CPT/HCPCS: 72197; A9585

== ENCOUNTER 2022-07-24 10:19 | Day surgery (SDC) | payer MEDICARE, OTHER ==
--- NOTE | 2022-07-20 16:11 | P.HPIHPCON ---
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 Discussed with him option of MRI fusion biopsy. Risk of bleeding, infection, sepsis and pulse negative was discussed with him in details. He understood all the risk and agreed to proceed Consent for Procedure: I have explained the operation/procedure to the patient, including the risks, benefits, side effects, alternative therapies (including not receiving the proposed treatment or service), the likelihood of the patient achieving his/her goals, and potential recuperation problems for the procedure/sedation/analgesia, as well as any blood products, if indicated. I also explained to the patient the risks, benefits and side effects of the alternatives, as well as the risks related to not receiving the proposed procedure, care, treatment, or services. Past Medical History Past Medical History: Atrial Fibrillation, Coronary Artery Disease (CAD), Diabetes Mellitus, GERD/Reflux, Hyperlipidemia, Hypertension, Prostate Disorder, Skin Disorder Additional Past Medical History / Comment(s): past hx. a-fib, not currently per pt., precancerous skin lesions, elevated PSA History of Any Multi-Drug Resistant Organisms: None Reported Past Surgical History: Coronary Bypass/CABG, Heart Catheterization Additional Past Surgical History / Comment(s): ramón cataracts, past cardioversion, triple bypass 5 yrs. ago, carotid artery stenting right side Past Anesthesia/Blood Transfusion Reactions: No Reported Reaction Smoking Status: Current every day smoker - Past Family History Father History Unknown: Yes Family Medical History: Cancer Mother Family Medical History: Coronary Artery Disease (CAD) Brother(s) Family Medical History: No Reported History Sister(s) Family Medical History: No Reported History Daughter(s) Family Medical History: No Reported History Son(s) Family Medical History: No Reported History Medications and Allergies Home Medications Medication Instructions Recorded Confirmed Type Atorvastatin [Lipitor] 80 mg PO DAILY 08/22/16 07/19/22 History Multivitamins, Thera [Multivitamin 1 tab PO DAILY 09/14/16 07/19/22 History (formulary)] sitaGLIPtin PHOS/metFORMIN HCL 1 each PO DAILY 12/23/19 07/19/22 History [Janumet 50-500 mg Tablet] Aspirin 162 mg PO DAILY 07/19/22 07/19/22 History Ciprofloxacin HCl [Cipro] 500 mg PO Q12HR 07/19/22 07/19/22 History Losartan Potassium [Cozaar] 100 mg PO DAILY 07/19/22 07/19/22 History Omeprazole [PriLOSEC] 20 mg PO AC-BRKFST 07/19/22 07/19/22 History Tamsulosin [Flomax] 0.4 mg PO HS 07/19/22 07/19/22 History carvediloL [Coreg] 6.25 mg PO BID 07/19/22 07/19/22 History hydroCHLOROthiazide [Hydrodiuril] 25 mg PO DAILY 07/19/22 07/19/22 History Allergies Allergy/AdvReac Type Severity Reaction Status Date / Time No Known Allergies Allergy Verified 07/19/22 09:52 Surgical - Exam - General no distress, no pain - ENT normal nares, normal mucosa - Respiratory normal expansion, normal respiratory effort - Abdomen Abdomen: soft, non tender - Psychiatric oriented to time, oriented to person, oriented to place Assessment and Plan Assessment: OR for MRI fusion biopsy
[~2022-07-24 10:19] MED LIST changes: -ALBUMIN HUMAN 25% 50 ML IV ONE; -ALBUMIN HUMAN 5% 500 ML IVPB ONE; -ASPIRIN 325 MG TAB PO ONE; -ATORVASTATIN 10 MG TAB PO ONE; -CALCIUM CHLORIDE 100 MG/ML 10 ML SYRINGE IV ONE; -CHLORHEXIDINE GLUCONATE 15 ML CUP MUCOUS MEM ONE; -CLEVIDIPINE BUTYRATE 25 MG in EMPTY BAG 1 BAG IV ONE; +GENTAMICIN 120 MG in SODIUM CHLORIDE 0.9% 100 ML IVPB PRN; -HEPARIN SODIUM 1,000 UN/ML (10ML VL) IV ONE; -HEPARIN SODIUM,PORCINE 5,000 UNIT in SODIUM CHLORIDE 0.9% 500 ML IV ONE; -INSULIN REGULAR 100 UNIT in SODIUM CHLORIDE 0.9% 100 ML IV ONE; -LACTATED RINGERS 1,000 ML IV ONE; -MAGNESIUM SULFATE MG 500 MG/ML VIAL IV ONE; -METOPROLOL TARTRATE 12.5 MG TAB PO ONE; -NITROGLYCERIN-D5W PMX 25 MG/250 ML BTL IV ONE; -NITROGLYCERIN-D5W PMX 50 MG in DEXTROSE/WATER 1 250ML.BAG IV ONE; -NOREPINEPHRIN 4 MG-0.9% NS PMX 4 MG/250 ML ML IV ONE; -PAPAVERINE 360 MG in SODIUM CHLORIDE 0.9% 90 ML IV ONE; -PHENYLEPHRINE 40 MG in SODIUM CHLORIDE 0.9% 250 ML IV ONE; -PHENYLEPHRINE-0.9% NACL SYG 1 MG/10 ML SYRINGE IV ONE; -PROPOFOL 50 ML IV ONE; -PROTAMINE SULFATE 10 MG/ML 25 ML VIAL IV ONE; -PROTAMINE SULFATE 250 MG in EMPTY BAG 1 BAG IV ONE; -SODIUM BICARB 8.4% 50 ML SYR (1 MEQ/ML) IV ONE; -SODIUM CHLORIDE 0.9% 1,000 ML IV ONE; -ceFAZolin 1,000 MG in SODIUM CHLORIDE 0.9% IRRIGATIO 1,000 ML IRRIGATION ONE; -ceFAZolin 2,000 MG in SODIUM CHLORIDE 0.9% 30 ML IVPB ONE
[2022-07-24] MEDS ORDERED: ONDANSETRON 4 MG/2 ML VIAL ONE (10:30)
[2022-07-24] MEDS ORDERED: LACTATED RINGERS 1,000 ML IV ONE (10:34)
[2022-07-24 10:47] VITALS: RESP 16; TEMP 97.3
[2022-07-24] MEDS ORDERED: DEXAMETHASONE SOD PHOSPHATE 4 MG/ML 1 ML VIAL IVP ONE (10:59)
[2022-07-24 11:08] LABS: Glucose,Whole Blood 122 mg/dL (70-110)
[2022-07-24] MEDS ORDERED: LIDOCAINE 2% INJ 20 MG/ML SQ ONE (11:14)
[2022-07-24] MEDS ORDERED: LIDOCAINE 2% INJ 20 MG/ML (2 ML VIAL) ONE (11:36)
[2022-07-24] MEDS ORDERED: MIDAZOLAM 2 MG/2 ML VIAL ONE (11:36)
[2022-07-24] MEDS ORDERED: PROPOFOL 10 MG/ML 20 ML VIAL IV ONE (11:36)
[2022-07-24] MEDS ORDERED: KETAMINE 10 MG/ML 20 ML VIAL ONE (11:36)
[2022-07-24] MEDS ORDERED: fentaNYL (PF) 50 MCG/ML 2 ML AMP ONE (11:36)
--- NOTE | 2022-07-24 12:13 | P.OP ---
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 Discussed with him option of MRI fusion biopsy. Risk of bleeding, infection, sepsis and pulse negative was discussed with him in details. He understood all the risk and agreed to proceed Description of Procedure: The patient was taken to the operating room and placed in the left lateral decubitus position. The [employer] transrectal ultrasound probe was placed intrarectally. It was then placed within the stand of the Procam TV MRI/TRUS Fusion for Prostate Biopsy system. The prostate was imaged in both the axial and sagittal planes, revealing a prostate volume of 42 mL. Using the Biopty gun, 4 biopsies were obtained from the target lesions. The remaining 12 biopsies of the peripheral zone were obtained utilizing a standard template. Once the procedure was completed, the ultrasound probe was removed. The patient tolerated the procedure well was taken to the recovery room stable condition.
[2022-07-24 12:30] VITALS: BP 113/61; PULSE 56
== END 2022-07-24 13:01 | disposition home or self-care (01) ==
LOC: OR 10:19
PROVIDERS: ATTEND Urology
DX: C61 Malignant neoplasm of prostate (principal); R97.20 Elevated prostate specific antigen [PSA]
CPT/HCPCS: 55700; 88305; J2250; J1100; J2405; J3010; J1580; J2704; J2001

== ENCOUNTER → 2022-10-15 | Outpatient (CLI) | payer MEDICARE, OTHER ==
[2022-10-15 15:07] LABS: Basophils # (A) 0.08 X 10*3/uL (0.00-0.10); Basophils % (A) 0.7 %; Eosinophils # (A) 0.09 X 10*3/uL (0.04-0.35); Eosinophils % (A) 0.8 %; HCT 40.8 % (39.6-50.0); HGB 13.2 d/dL (12.0-15.0); Lymphocytes # (A) 1.97 X 10*3/uL (0.90-5.00); Lymphocytes % (A) 18.5 %; MCH 29.3 pg (27.0-32.0); MCHC 32.4 d/dL (32.0-37.0); MCV 90.5 FL (80.0-97.0); Mean Platelet Volume 10.1 FL (9.5-12.2); Monocytes # (A) 0.81 X 10*3/uL (0.20-1.00); Monocytes % (A) 7.6 %; NRBC Per 100 WBC 0 X 10*3/uL (0.00-0.01); Neutrophils # (A) 7.69 X 10*3/uL (1.80-7.70); Neutrophils % (A) 72.1 %; Platelet Count 270 X 10*3/uL (140-440); RBC 4.51 X 10*6/uL (4.40-5.60); RDW 12.8 % (11.5-14.5); WBC 10.67 X 10*3/uL (4.50-10.00)
[2022-10-15 15:45] LABS: BUN/Creat Ratio 13.77 Ratio (12.00-20.00); Blood Urea Nitrogen 17.9 mg/dL (9.0-27.0); Calcium 9.7 mg/dL (8.7-10.3); Carbon Dioxide 25.7 mmol/L (21.6-31.8); Chloride 98 mmol/L (96-109); Glucose 128 mg/dL (70-110); Potassium 5.2 mmol/L (3.5-5.5); Sodium 136 mmol/L (135-145)
[2022-10-15 16:36] LABS: Appearance,Urine Clear (Clear); Bilirubin,Urine Small (Negative); Blood,Urine Negative (Negative); Color,Urine Dark Yellow (Yellow); Ketones,Urine Trace (Negative); Nitrite,Urine Negative (Negative); Specific Gravity,Urine 1.022 (1.001-1.030)
[2022-10-15 16:40] LABS: Bacteria,Urine None Seen (None Seen)
== END | disposition home or self-care (01) ==
LOC: LABPAT 09:18
PROVIDERS: ATTEND Urology
DX: Z01.812 Encounter for preprocedural laboratory examination (principal); C61 Malignant neoplasm of prostate
CPT/HCPCS: 36415; 80048; 81001; 85025; 87086

== ENCOUNTER 2022-10-25 11:57 | Day surgery (SDC) | payer MEDICARE, OTHER ==
--- NOTE | 2022-10-22 09:04 | P.GSHP ---
History of Present Illness H&P Date: 10/22/22 Chief Complaint: Prostate cancer This is a 67-year-old male with history of elevated PSA, underwent prostate MRI that showed evidence of a PIRADS 4 lesion along the right apex. He underwent an MRI fusion biopsy, revealing evidence of prostate cancer. He has elected to be treated with radiation therapy. He now comes for SpaceOAR implant to reduce the risk of radiation induced rectal toxicity. Past Medical History Past Medical History: Atrial Fibrillation, Coronary Artery Disease (CAD), Heart Failure, Hyperlipidemia, Hypertension, Skin Disorder Additional Past Medical History / Comment(s): precancerous skin lesions History of Any Multi-Drug Resistant Organisms: None Reported Past Surgical History: Heart Catheterization Additional Past Surgical History / Comment(s): ramón cataracts, recent cardioversion-September Past Anesthesia/Blood Transfusion Reactions: No Reported Reaction Additional Past Alcohol Use History / Comment(s): down 5 cigs/day, smoker on & off for 40 yrs. - Past Family History Father History Unknown: Yes Family Medical History: Cancer Mother Family Medical History: Coronary Artery Disease (CAD) Brother(s) Family Medical History: No Reported History Sister(s) Family Medical History: No Reported History Daughter(s) Family Medical History: No Reported History Son(s) Family Medical History: No Reported History Medications and Allergies Home Medications Medication Instructions Recorded Confirmed Type Atorvastatin [Lipitor] 80 mg PO DAILY 08/22/16 07/24/22 History Multivitamins, Thera [Multivitamin 1 tab PO DAILY 09/14/16 07/24/22 History (formulary)] sitaGLIPtin PHOS/metFORMIN HCL 1 each PO DAILY 12/23/19 07/24/22 History [Janumet 50-500 mg Tablet] Aspirin 162 mg PO DAILY 07/19/22 07/24/22 History Ciprofloxacin HCl [Cipro] 500 mg PO Q12HR 07/19/22 07/24/22 History Losartan Potassium [Cozaar] 100 mg PO DAILY 07/19/22 07/24/22 History Omeprazole [PriLOSEC] 20 mg PO AC-BRKFST 07/19/22 07/24/22 History Tamsulosin [Flomax] 0.4 mg PO HS 07/19/22 07/24/22 History carvediloL [Coreg] 6.25 mg PO BID 07/19/22 07/24/22 History hydroCHLOROthiazide [Hydrodiuril] 25 mg PO DAILY 07/19/22 07/24/22 History Allergies Allergy/AdvReac Type Severity Reaction Status Date / Time No Known Allergies Allergy Verified 07/24/22 10:39 Surgical - Exam - General well developed, well nourished, no distress - Respiratory normal respiratory effort - Abdomen Abdomen: soft, non tender, no guarding, no rigid, no rebound - Psychiatric oriented to time, oriented to person, oriented to place, speech is normal, memory intact Assessment and Plan (1) Malignant neoplasm of prostate Status: Acute Code(s): C61 - MALIGNANT NEOPLASM OF PROSTATE SNOMED Code(s): 941371152 Plan: SpaceOAR Implant. Risks include anesthesia and infection. The procedure will need to be aborted if rectal perforation occurs.
[2022-10-22 12:01] VITALS: BMI 28.7
[~2022-10-25 11:57] MED LIST changes: -LACTATED RINGERS 1,000 ML IV SCH
[2022-10-25] MEDS ORDERED: DEXAMETHASONE SOD PHOSPHATE 4 MG/ML 1 ML VIAL IV ONE (13:26)
[2022-10-25] MEDS ORDERED: fentaNYL (PF) 50 MCG/ML 2 ML AMP IV PRN (13:26)
[2022-10-25] MEDS ORDERED: LACTATED RINGERS 1,000 ML IV SCH (13:26)
[2022-10-25] MEDS ORDERED: ONDANSETRON 4 MG/2 ML VIAL IVP ONE (13:26)
[2022-10-25 13:57] LABS: Glucose,Whole Blood 114 mg/dL (70-110)
[2022-10-25 14:00] VITALS: TEMP 97
[2022-10-25] MEDS ORDERED: LIDOCAINE 2% INJ 20 MG/ML (2 ML VIAL) ONE (15:18)
[2022-10-25] MEDS ORDERED: MIDAZOLAM 2 MG/2 ML VIAL ONE (15:18)
[2022-10-25] MEDS ORDERED: PROPOFOL 10 MG/ML 20 ML VIAL IV ONE (15:18)
[2022-10-25] MEDS ORDERED: fentaNYL (PF) 50 MCG/ML 2 ML AMP ONE (15:18)
[2022-10-25] MEDS ORDERED: LIDOCAINE 2% INJ 20 MG/ML SQ ONE (15:31)
--- NOTE | 2022-10-25 15:46 | P.OP ---
Date of Procedure: 10/25/22 Preoperative Diagnosis: Adenocarcinoma of the prostate Postoperative Diagnosis: Same Procedure(s) Performed: SpaceOAR Implant Anesthesia: MAC Surgeon: Phil Murray Estimated Blood Loss (ml): 0 IV fluids (ml): 300 Pathology: none sent Condition: stable Disposition: PACU Indications for Procedure: This is a 67-year-old male with history of elevated PSA, underwent prostate MRI that showed evidence of a PIRADS 4 lesion along the right apex. He underwent an MRI fusion biopsy, revealing evidence of prostate cancer. He has elected to be treated with radiation therapy. He now comes for SpaceOAR implant to reduce the risk of radiation induced rectal toxicity. Operative Findings: Approximately 12 mm separation created between prostate and rectum. Description of Procedure: The patient was taken to the operating room and placed in the dorsolithotomy position, with his legs supported in Porter stirrups. The external genitalia was prepped and draped sterilely. The Bruel and Kjaer transrectal ultrasound probe was placed intrarectally. The prostate was imaged. The probe was then placed within the stabilizing stand. A spinal needle was advanced under ultrasonic guidance to the level of the urogenital diaphragm, and lidocaine was used to infiltrate the tissues as the needle was withdrawn. Next, the SpaceOAR needle was passed through the midline of the perineum, 1-2 cm anterior to the anal opening. The needle was slowly advanced under ultrasonic guidance until the needle tip was located within the fat plane between the prostate and rectum, at the level of the mid prostate gland. The needle was confirmed to be midline on the axial imaging. A small amount of normal saline was injected for hydrodissection. Next, the SpaceOAR components were mixed and loaded into the Y connector per protocol. The Y connector was then connected to the needle, and the components were injected slowly over a course of approximately 12 seconds. A total of 10 ml was injected. Significant distance was created between the prostate and rectum, as desired. It should be noted that at no point was there any concern of rectal perforation. The needle was withdrawn, as well as the transrectal ultrasound probe, and the procedure was terminated. The patient tolerated the procedure well and was taken to the recovery room in stable condition.
[2022-10-25 15:55] VITALS: RESP 18
[2022-10-25 16:15] VITALS: BP 119/80; PULSE 63
== END 2022-10-25 16:36 | disposition home or self-care (01) ==
LOC: OR 11:57
PROVIDERS: ATTEND Urology
DX: C61 Malignant neoplasm of prostate (principal); I48.91 Unspecified atrial fibrillation; I25.10 Atherosclerotic heart disease of native coronary artery without angina pectoris; I11.0 Hypertensive heart disease with heart failure; I50.9 Heart failure, unspecified; E11.9 Type 2 diabetes mellitus without complications; F17.210 Nicotine dependence, cigarettes, uncomplicated; K21.9 Gastro-esophageal reflux disease without esophagitis; E78.5 Hyperlipidemia, unspecified; Z95.5 Presence of coronary angioplasty implant and graft; Z98.41 Cataract extraction status, right eye; Z98.42 Cataract extraction status, left eye; Z80.8 Family history of malignant neoplasm of other organs or systems; Z82.49 Family history of ischemic heart disease and other diseases of the circulatory system; Z79.82 Long term (current) use of aspirin; Z79.84 Long term (current) use of oral hypoglycemic drugs; Z79.899 Other long term (current) drug therapy
CPT/HCPCS: 55874; C1889; J2001 ×2; J2250; J1100; J2405; J3010; J1580; J2704